=== PATIENT | male | born 1945 | race Caucasian/White ===

== ENCOUNTER 2024-10-02 15:20 | Outpatient (AMB) | payer MEDICARE, MEDICAID, SELFPAY ==
[2024-10-02 15:41] VITALS: BP 112/75; PULSE 105; RESP 16; TEMP 36.4; O2SAT 97; BMI 23.7
--- NOTE | 2024-10-02 15:41 | ACNOTE_ITS ---
Vital Signs 10/02/24 15:41 Height 1.7 m Height Method Stated Weight 68.549 kg Weight Measurement Method Standing Scale BMI 23.7 BP 112/75 Blood Pressure Source Automatic Cuff Blood Pressure Location Left Upper Arm Position Sitting Respiration 16 Pulse 105 H Pulse Source Monitor Temp 97.6 F Temp Source Oral Pulse Oximetry (%) 97 Oxygen Delivery Method Room Air Allergies/Meds Allergies & Medications Allergies No Known Allergies Allergy (Verified 10/02/24 15:42) Medication Reconciliation lancets 28 gauge (Acti-Homar Lancets) #100 ea 06/08/24 [Rx Confirmed 10/02/24] blood sugar diagnostic (Accu-Chek Siria Plus test strips) #100 ea 07/03/24 [Rx Confirmed 10/02/24] atorvastatin 40 mg tablet 40 mg PO QDAY 1 month #30 tabs 08/09/24 [Rx Confirmed 10/02/24] blood-glucose sensor (FreeStyle Renetta 3 Plus Sensor device) #1 ea 08/09/24 [Rx Confirmed 10/02/24] gabapentin 300 mg capsule 300 mg PO QDAY 30 days #30 caps 08/09/24 [Rx Confirmed 10/02/24] insulin glargine 100 unit/mL (3 mL) subcutaneous pen 24 unit (0.24 mL) subcut QPM #15 mL 09/04/24 [Rx Confirmed 10/02/24] levothyroxine 125 mcg tablet 125 mcg PO QDAY #30 tabs 09/04/24 [Rx Confirmed 10/02/24] lisinopril 10 mg tablet 10 mg PO QDAY #30 tabs 09/04/24 [Rx Confirmed 10/02/24] semaglutide 7 mg tablet (Rybelsus) 7 mg PO QDAY #30 tabs 09/04/24 [Rx Confirmed 10/02/24] trazodone 50 mg tablet 50 mg PO QHS PRN insomnia #30 tabs 09/04/24 [Rx Confirmed 10/02/24] MA Intake Visit Data Collection New Patient or Established: Established Patient (seen at [facility] within 3 years) Seen by Clinical Staff ONLY (RN/MA): No Pain Present Currently: No Pain scale:: 0 Pain Scale Used: Rodriguez-Dos Santos/Numerical PCP or OBGYN visit in last 3 months: Yes Do You Feel Safe at Home: Yes Authorities Contacted: N/A Smoking Status Smoking Status: Never smoker Immunization / Flu Flu Vaccine in the Last 12 Months: No Flu Vaccine Exclusion Criteria: No Exclusion Criteria Past Medical History Past Medical History NEUROLOGIC: Positive Neurological Disorders (spinal stenosis) CARDIAC: Positive Cardiac Disorders, Coronary Artery Disease, Hypercholesterolemia and Hypertension; Negative Congestive Heart Failure RESPIRATORY: Negative Chronic Obstructive Pulmonary Disease (COPD) or Asthma GENITOURINARY: Negative Renal Disease ENDOCRINE: Positive Diabetes Mellitus Type 2; Negative Diabetes Mellitus Type 1 HEMATOLOGIC: Negative Sickle Cell Disease OTHER HISTORY: Positive Hospitalization and Falls; Negative Blood Transfusions or Anesthesia Reactions Surgical History SURGICAL: Positive Cardiac Surgery, Coronary Stent (x3), Cardiac Catheterization and Angiogram Social History SMOKING STATUS: Smoking status: Never smoker ALCOHOL: Alcohol Intake: Current ALCOHOL FREQUENCY: Alcohol Intake Frequency: holidays/special occasions only HOUSING: Housing: Homeless LIVES WITH: Lives With: Significant Other Patient Portal Mark Social History Living Situation History Housing: Homeless Tobacco History Smoking Status: Never smoker Alcohol History Alcohol Intake: Current Alcohol Intake Frequency: holidays/special occasions only Substance Use History Substance Use: meth Domestic Abuse History Do You Feel Safe at Home: Yes Review of Systems Report any current symptoms Only answer those that you have currently: Past Medical History Past Medical History Have you ever been diagnosed with any of the following: Cardiology Problems Coronary Artery Disease: Yes Hypercholesterolemia: Yes Congestive Heart Failure: No Hypertension: Yes Respiratory Problems Chronic Obstructive Pulmonary Disease (COPD): No Asthma: No Genital/Urinary Problems Renal Disease: No Endocrine Problems Diabetes Mellitus Type 1: No Diabetes Mellitus Type 2: Yes Blood Problems Sickle Cell Disease: No Other Problems Hospitalization: Yes Falls: Yes Blood Transfusions: No Anesthesia Reactions: No History of Present Illness HPI Narrative 78-year-old male with past medical history of hypertension, hyperlipidemia, CAD s/p stent, prior meth use and fentanyl use, hypothyroidism, DM2, and dementia came into the [facility] for follow-up visit of DM2. Patient has been feeling a lot better and has been a lot more active as well as using a cane now for walking instead of walker. Patient's living condition has changed since last visit and is in much better spirits. Patient states his free style renetta fell off and that he was not able to measure his BG as he did not understand well how to use it even after I explained to him how to use it on previous visit. Patient was asked to come in again with caregiver to explain proper use and free style renetta. No other complaints at this time. Review of Systems Review of Systems Narrative Review of Systems: Constitutional: Denies sweats, Denies weight loss/gain, Denies fever, Denies chills, Denies insomnia, Denies weakness. HEENT: Denies hearing loss, Denies ear pain, Denies postnasal drip, Denies double vision, Denies blurry vision. Respiratory: Denies shortness of breath, Denies cough, Denies wheezing. Cardiovascular: Denies chest pain, Denies palpitations, Denies sudden loss of consciousness. GI: Denies blood in stool, Denies constipation, Denies abdominal pain, Denies difficulty swallowing, Denies nausea or vomit. : Denies urinary incontinence, Denies pain while urinating, Denies increased urinary frequency. MSK: Denies joint pain, Denies joint swelling, Denies numbness. Skin: Denies rash, Denies itching, Denies easy bruising. Neuro: Denies headaches, Denies dizziness, Denies seizures. Objective/Exam General General Appearance: alert, in no apparent distress and cooperative Head Head exam: atraumatic and normocephalic Eye Eye exam: Present normal appearance, PERRL and EOMI ENT ENT exam: Present normal oropharynx, mucous membranes moist and normal external ear exam Neck Neck exam: Present normal inspection, full ROM and trachea midline Resp Respiratory exam: Present normal lung sounds bilaterally Card Cardiovascular exam: Present regular rate, normal rhythm and normal heart sounds Abdominal Abdominal exam: Present soft and normal bowel sounds Extremities Extremities exam: Present normal inspection and full ROM Neuro Neurological exam: Present alert and oriented X3 Psych Psychiatric exam: Present normal affect and normal mood Assessment & Plan Diagnosis / Problem List (1) Diabetes mellitus: Status: Acute Qualifiers: Diabetes mellitus complication status: without complication Diabetes mellitus mcfp insulin use: unspecified mcfp insulin use status Diabetes mellitus type: type 2 Qualified Code(s): E11.9 - Type 2 diabetes mellitus without complications Assessment & Plan: ?Hemoglobin A1c was 12.5% on 08/23/2024 Plan: ?Continue glargine 24 units at at bedtime ?Continue Rybelsus to 7 mg daily -Continue lisinopril 10 mg -Labs in 2 months (2) Hypothyroidism: Status: Acute Qualifiers: Hypothyroidism type: unspecified Qualified Code(s): E03.9 - Hypothyroidism, unspecified Assessment & Plan: TSH on 08/23/2024 was 32.81 Free T4 was 0.98 on 08/23/2024 Plan: ?Continue levothyroxine to 125 mcg daily -Will reasses in 2 months (3) Hyperlipidemia: Status: Acute Qualifiers: Hyperlipidemia type: unspecified Qualified Code(s): E78.5 - Hyperlipidemia, unspecified Assessment & Plan: ?Triglycerides 337, cholesterol 167, LDL 58 on 08/23/2024 Plan: ?Continue atorvastatin 40 mg at bedtime (4) Insomnia: Status: Acute Qualifiers: Insomnia type: unspecified Qualified Code(s): G47.00 - Insomnia, unspecified Assessment & Plan: ?Patient still not sleeping well. Plan: ?Continue trazadone 50 mg (5) Chronic back pain: Status: Acute Qualifiers: Back pain laterality: unspecified Back pain location: back pain in unspecified location Qualified Code(s): M54.9 - Dorsalgia, unspecified; G89.29 - Other chronic pain Assessment & Plan: ?Patient stated that he has chronic back pain which impairs his daily activities and can be attributed to his weakness as well. -Still present, not interested in physical therapy Plan: ?Continue gabapentin 300 mg 3 times daily ?Continue Cyclobenzaprine 5 mg 3 times daily as needed (6) Weakness: Status: Acute Assessment & Plan: Patient still feels weak could be due to poor sleep vs deconditioning Plan: -Improving (7) Carbuncle: Status: Acute Assessment & Plan: -finished course of doxycycline Plan: -resolved Additional Assessment Attending note: I, Waldemar Kruger MD, attest that I was physically present for the chung portions of the service and evaluated the patient with the resident and I reviewed and discussed the case with the resident and agree with the resident's findings and plans of care as documented above. Follow-up visit. Chronic conditions reviewed. Use of CGM reviewed with patient. Tolerating medications. Patient feeling improved. Living condition has changed. Inflamed carbuncle resolved with doxycycline. Continue present medication regimen for now. Labs at 3-month point. Waldemar Kruger MD Advanced Care Planning Advance care planning discussed with:: patient and spouse Physician Billing Established Patient Established Patient: E/M Level 3-CPT 49689 Office Procedures [facility] Level of Care Nursing/Assessment Patient Status: Established Patient Nursing Assessment/Reassessment: Medication Reconciliation, Update PMH in EMR and Vital Signs Coordination of Care: Complex Care and Chronic Disease 1-5, Education Complex Pt/Fam and Staff clarify orders Established Patient Charge Established Patient Point Assignment: 85 Established Patient Point Charge: EP Level 3 (80-115)
== END 2024-10-02 16:04 | disposition home or self-care (01) ==
LOC: HODAHC 15:20
PROVIDERS: Supervising Provider Internal Medicine
DX: E11.9 Type 2 diabetes mellitus without complications (principal); E78.5 Hyperlipidemia, unspecified; G47.00 Insomnia, unspecified; E03.9 Hypothyroidism, unspecified; Z79.4 Long term (current) use of insulin; Z79.84 Long term (current) use of oral hypoglycemic drugs; M54.9 Dorsalgia, unspecified; G89.29 Other chronic pain; R53.1 Weakness; L02.93 Carbuncle, unspecified
CPT/HCPCS: 99213; G0463

== ENCOUNTER 2024-11-12 14:06 | Inpatient (IN) | payer MEDICARE, MEDICAID, SELFPAY ==
[2024-11-12] VITALS (23 sets, daily range): BP systolic 71–159; BP diastolic 36–105; PULSE 51–80; RESP 14–25; TEMP 33.8–37.2; O2SAT 89–100; BMI 22.9
--- NOTE | 2024-11-12 14:23 | XR_ITS ---
Examination: AP chest single view TECHNIQUE: AP portable semiupright chest single view Exam date 9: November 12, 2024 1351 hours INDICATIONS: Sepsis protocol FINDINGS: Early bibasilar pneumonia Normal heart size Median sternotomy wires IMPRESSION: Early bibasilar pneumonia
--- NOTE | 2024-11-12 14:23 | EKG_ITS ---
[facility] Test Date: 2024-11-12 Pat Name: JUAN CARLOS JOEL Department: Room: - Gender: Male [employer]: : 1945 Requested By: Koko Salazar Order Number: [id number] Reading MD: Koko Salazar Measurements Intervals [place] Rate: 47 P: 101 CA: 140 QRS: 11 QRSD: 123 T: 73 QT: 511 QTc: 454 Interpretive Statements SINUS BRADYCARDIA SEPTAL MYOCARDIAL INFARCTION , OF INDETERMINATE AGE [40+ ms Q WAVE IN V1/V2] No previous ECG available for comparison /[id number]/[email or web address]/[id number]
[2024-11-12] MEDS: SODIUM CHLORIDE 0.9% 1000 ML 1,000 ML 999 ML IV ×3 (14:24→15:35)
--- NOTE | 2024-11-12 14:26 | PD.EDADULT ---
ED General RME/HPI General Chief complaint: Altered Mental Status Stated complaint: AMS Time Seen by Provider: 11/12/24 14:22 Arrival date/time: 11/12/24 14:06 CC: Altered mental status HPI patient presents to the ER via EMS tachycardic hypertensive and cool to touch. Related Data Previous Rx's ?Medication ?Instructions ?Recorded lancets 28 gauge (Acti-Homar #100 ea 06/08/24 Lancets) blood sugar diagnostic (Accu-Chek #100 ea 07/03/24 Siria Plus test strips) atorvastatin 40 mg tablet 40 mg PO QDAY 1 month #30 tabs 08/09/24 blood-glucose sensor (FreeStyle #1 ea 08/09/24 Renetta 3 Plus Sensor device) gabapentin 300 mg capsule 300 mg PO QDAY 30 days #30 caps 08/09/24 insulin glargine 100 unit/mL (3 24 unit (0.24 mL) subcut QPM #15 mL 09/04/24 mL) subcutaneous pen levothyroxine 125 mcg tablet 125 mcg PO QDAY #30 tabs 09/04/24 lisinopril 10 mg tablet 10 mg PO QDAY #30 tabs 09/04/24 semaglutide 7 mg tablet (Rybelsus) 7 mg PO QDAY #30 tabs 09/04/24 trazodone 50 mg tablet 50 mg PO QHS PRN insomnia #30 tabs 09/04/24 Allergies Allergy/AdvReac Type Severity Reaction Status Date / Time No Known Allergies Allergy Verified 10/02/24 15:42 Review of Systems Review of Systems ROS Unobtainable: unobtainable due to mental status Past Medical History Past Medical History NEUROLOGIC: Positive Neurological Disorders (spinal stenosis) CARDIAC: Positive Cardiac Disorders, Coronary Artery Disease, Hypercholesterolemia and Hypertension; Negative Congestive Heart Failure RESPIRATORY: Negative Chronic Obstructive Pulmonary Disease (COPD) or Asthma GENITOURINARY: Negative Renal Disease ENDOCRINE: Positive Diabetes Mellitus Type 2; Negative Diabetes Mellitus Type 1 HEMATOLOGIC: Negative Sickle Cell Disease OTHER HISTORY: Positive Hospitalization and Falls; Negative Blood Transfusions or Anesthesia Reactions Surgical History SURGICAL: Positive Cardiac Surgery, Coronary Stent (x3), Cardiac Catheterization and Angiogram Social History SMOKING STATUS: Smoker, status unknown ED Exam Narrative Physical exam: [General: Altered not responding to questions Head normocephalic HEENT: Eyes pupils are PERRLA EOMs intact. Mouth dry. All other subsystems of HEENT are within acceptable limits Neck is supple nontender Chest equal chest rise nontender to palpation Respiratory: Clear to auscultation no wheezes crackles or rubs CV: Rate rhythm is regular, tachycardic, no murmurs rubs or clicks Abdomen is soft nontender no masses positive bowel sounds all 4 quadrants : Ferraro catheter admitting from the penis, thick yellow exudative urine draining into the catheter bag. Back: No CVA tenderness no spinous process tenderness from cervical spine thoracic and lumbar spine Skin: Intact no petechiae rash induration ulceration or crepitus Extremities: Moving all extremity against resistance cap refill less than 2 seconds neurosensory intact Neuro: Awake alert nonverbal at this time. Course Course Course Narrative: Patient case discussed with Dr. Salgado prior to interventions. Quality Measures none Orders Category Date Time Status 24 HR Medical Restraints Q2HR Care 11/12/24 15:58 Active Bedside Blood Glucose Q1H Care 11/12/24 17:17 Active COVID-19 Screening Questionnaire NOW Care 11/12/24 16:02 Active Cryptological Technician STAT Care 11/12/24 14:23 Active Continuous Pulse Oximetry STAT Care 11/12/24 14:23 Completed DKA Protocol QSHIFT Care 11/12/24 17:17 Active Decision to Admit X1 Care 11/12/24 16:02 Completed EKG (ED ONLY) *Do not use* NOW Care 11/12/24 14:23 Completed Emergency Titration Protocol Stat Care 11/12/24 16:34 Ordered In and Out Catheter X1PRN Care 11/12/24 14:23 Completed Insert IV NOW Care 11/12/24 14:23 Active Intake and Output Q1H Care 11/12/24 17:30 Ordered Intake and Output Q1H Care 11/12/24 18:30 Ordered Intake and Output Q1H Care 11/12/24 19:30 Ordered Intake and Output Q1H Care 11/12/24 20:30 Ordered Intake and Output Q1H Care 11/12/24 21:30 Ordered Intake and Output Q1H Care 11/12/24 22:30 Ordered Intake and Output Q1H Care 11/12/24 23:30 Ordered Intubation NOW Care 11/12/24 17:18 Completed NG / OG Tube to LIS NOW Care 11/12/24 17:20 Active NPO STAT Care 11/12/24 14:23 Active Notify provider NEEDED Care 11/12/24 17:17 Active Strict Intake and Output Routine Care 11/12/24 14:23 Ordered Consult to Nephrology Stat Cons 11/12/24 15:56 Ordered Referral Registered Dietitian Routine Cons 11/12/24 17:[address] chest abdomen pelvis wo Stat Exams 11/12/24 17:[address] head/brain wo con Stat Exams 11/12/24 17:06 Completed CXR [XR chest 1V post procedure] Stat Exams 11/12/24 17:43 Completed EKG (ED Only) Stat Exams 11/12/24 14:23 Draft XR chest 1V SEPSIS PROTOCOL Stat Exams 11/12/24 14:23 Completed Arterial Blood Gas Stat Lab 11/12/24 17:27 Ordered B-Type Natriuretic Peptide Stat Lab 11/12/24 15:00 Completed Beta Hydroxybutyrate Stat Lab 11/12/24 15:00 Completed Blood Culture (Lab) Stat Lab 11/12/24 14:38 Received CBC Stat Lab 11/12/24 15:00 Completed Comprehensive Metabolic Panel Stat Lab 11/12/24 15:00 Completed Creatine Kinase Stat Lab 11/12/24 17:48 Completed Drug Screen,Urine Stat Lab 11/12/24 20:28 Completed FLU A&B [Influenza A & B Rapid Panel] Stat Lab 11/12/24 04:30 Received Hemoglobin and Hematocrit Stat Lab 11/12/24 17:48 Completed LDH (Lactate Dehydrogenase) Stat Lab 11/12/24 15:00 Completed Lactate (Lactic Acid) Stat Lab 11/12/24 15:00 Completed Lactic Acid, 3 HR Stat Lab 11/12/24 17:48 Completed Lipase Stat Lab 11/12/24 15:00 Completed MRSA Nasal Screen Stat Lab 11/12/24 20:50 Received Magnesium Q4H Lab 11/14/24 01:30 Ordered Magnesium Q4H Lab 11/14/24 05:30 Ordered Magnesium Q4H Lab 11/14/24 09:30 Ordered Magnesium Q4H Lab 11/14/24 13:30 Ordered Magnesium Q4H Lab 11/14/24 17:30 Ordered Magnesium Q4H Lab 11/12/24 22:58 Completed Magnesium Q4H Lab 11/13/24 01:43 Completed Magnesium Q4H Lab 11/13/24 05:20 Received Magnesium Q4H Lab 11/13/24 09:30 Ordered Magnesium Q4H Lab 11/13/24 13:30 Ordered Magnesium Q4H Lab 11/13/24 17:30 Ordered Magnesium Q4H Lab 11/13/24 21:30 Ordered Magnesium Stat Lab 11/12/24 15:00 Completed Partial Thromboplastin Time Stat Lab 11/12/24 15:00 Completed Phosphorous Q4H Lab 11/14/24 01:30 Ordered Phosphorous Q4H Lab 11/14/24 05:30 Ordered Phosphorous Q4H Lab 11/14/24 09:30 Ordered Phosphorous Q4H Lab 11/14/24 13:30 Ordered Phosphorous Q4H Lab 11/14/24 17:30 Ordered Phosphorous Stat Lab 11/12/24 15:00 Completed Procalcitonin Stat Lab 11/12/24 15:00 Completed Prothrombin Time with INR Stat Lab 11/12/24 15:00 Completed Renal Function Panel Q4 Lab 11/14/24 01:30 Ordered Renal Function Panel Q4 Lab 11/14/24 05:30 Ordered Renal Function Panel Q4 Lab 11/14/24 09:30 Ordered Renal Function Panel Q4 Lab 11/14/24 13:30 Ordered Renal Function Panel Q4 Lab 11/14/24 17:30 Ordered Renal Function Panel Q4 Lab 11/12/24 22:58 Completed Renal Function Panel Q4 Lab 11/13/24 01:43 Completed Renal Function Panel Q4 Lab 11/13/24 05:20 Received Renal Function Panel Q4 Lab 11/13/24 09:30 Ordered Renal Function Panel Q4 Lab 11/13/24 13:30 Ordered Renal Function Panel Q4 Lab 11/13/24 17:30 Ordered Renal Function Panel Q4 Lab 11/13/24 21:30 Ordered Renal Function Panel Stat Lab 11/12/24 17:48 Completed Sputum Culture and Gram Stain Routine Lab 11/12/24 17:27 Results Troponin I Stat Lab 11/12/24 15:00 Completed Urinalysis Stat Lab 11/12/24 14:38 Completed Urine Culture Stat Lab 11/12/24 14:38 Received VBG [Venous Blood Gas] Stat Lab 11/12/24 15:00 Completed Calcium Gluconate 10% Inj Med 11/12/24 15:43 Discontinued 1 gm IV X1 ONE Calcium Gluconate 10% Inj Med 11/12/24 15:56 Discontinued 1 gm IV X1 ONE Dextrose 5%-Lactated Ringers [D5-Lr] 1,000 ml Med 11/12/24 17:17 Active Pot Chl Additive [KCl Additive] 40 meq IV 250 mls/hr Dextrose 5%-Lactated Ringers [D5-Lr] 1,000 ml Med 11/12/24 17:17 Active IV 250 mls/hr Dextrose 50% Syr [D50w Syringe Abboject] Med 11/12/24 17:17 Active 25 ml IV PRNMRX1 PRN Etomidate Inj [Amidate Inj] Med 11/12/24 16:42 Discontinued 20 mg IVP X1 ONE Insulin Reg 100 Units/100 ml [Myxredlin] Med 11/12/24 15:57 Hold 100 unit in 100 ml IV 0.1 unit/kg/hr Insulin Reg 100 Units/100 ml [Myxredlin] Med 11/12/24 19:36 Active 100 unit in 100 ml IV 0.1 unit/kg/hr Insulin Regular Med 11/12/24 15:57 Discontinued 10 unit IV X1 ONE KCL 20 mEq/L in D5-LR Med 11/12/24 17:17 Active 20 meq in 1,000 ml IV 250 mls/hr Ketamine Inj Med 11/12/24 16:43 Discontinued 200 mg IVP X1 ONE Magnesium Sulfate 2 GM Ivpb [Magnesium Sulfate Ivpb] Med 11/12/24 17:17 Active 2 gm in 50 ml IV 25 mls/hr Norepinephrine/D5W 8mg/250ml [Levophed in D5W 8mg/250ml Med 11/12/24 16:05 Discontinued ] 8 mg in 250 ml IV 0.05 mcg/kg/min POT PHOS 15 mMol in NS 250 ML [Pot Phos 15 mMol in NS Med 11/12/24 17:17 Active 250 ml] 15 mmol in 250 ml IV PRN POTASSIUM CHL 10 mEq IVPB [Kcl Ivpb] Med 11/12/24 17:17 Active 10 meq in 100 ml IV 100 mls/hr POTASSIUM CHL 10 mEq IVPB [Kcl Ivpb] Med 11/12/24 17:17 Active 10 meq in 100 ml IV PRN POTASSIUM CHL 20 mEq IVPB [Kcl Ivpb] 100 ml Med 11/12/24 17:17 Active IV 100 mls/hr Piper/Tazo Inj [Zosyn Inj] 3.375 gm Med 11/12/24 22:30 Active Sodium Chloride 0.9% (P) [Ns 0.9% (P)] 50 ml IV Q8HR Piper/Tazo Inj [Zosyn Inj] 3.375 gm Med 11/12/24 17:45 Discontinued Sodium Chloride 0.9% (P) [Ns 0.9% (P)] 50 ml IV X1 Propofol 1,000 mg Ivpb [Diprivan Ivpb] Med 11/12/24 16:59 Discontinued 1,000 mg in 100 ml IV 5 mcg/kg/min Propofol 1,000 mg Ivpb [Diprivan Ivpb] Med 11/12/24 18:01 Active 1,000 mg in 100 ml IV 5 mcg/kg/min Ringers Lactated 1000 ml [Lactated Ringers] 1,000 ml Med 11/12/24 17:17 Active Pot Chl Additive [KCl Additive] 20 meq IV 250 mls/hr Ringers Lactated 1000 ml [Lactated Ringers] 1,000 ml [facility] 11/12/24 17:17 Active Pot Chl Additive [KCl Additive] 40 meq IV 250 mls/hr Ringers Lactated 1000 ml [Lactated Ringers] 1,000 ml Med 11/12/24 17:17 Discontinued IV 250 mls/hr Rocuronium Inj [Zemuron Inj] Med 11/12/24 16:42 Discontinued 70 mg IVP X1 ONE Sodium Bicarb 8.4% SYR Med 11/12/24 17:17 Active 50 ml IV PRN PRN Sodium Chloride 0.9% 1000 ml [Ns] 1,000 ml Med 11/12/24 15:21 Discontinued IV 150 mls/hr Sodium Chloride 0.9% 1000 ml [Ns] 1,000 ml Med 11/12/24 14:24 Discontinued IV 999 mls/hr Sodium Chloride 0.9% 1000 ml [Ns] 1,000 ml Med 11/12/24 14:24 Discontinued IV 999 mls/hr Sodium Chloride 0.9% 1000 ml [Ns] 1,000 ml Med 11/12/24 15:21 Discontinued IV 999 mls/hr Sodium Chloride 0.9% 250 ml [Ns] 250 ml Med 11/12/24 17:17 Active Sod Phos Additive [NaPhos Additive] 15 mmol IV 62.5 mls/hr Sodium Chloride Rt Hayde 10% [NS Rt Hayde 10%] Med 11/12/24 17:18 Discontinued 5 ml INH X1 ONE Sodium Chloride Rt Hayde 10% [NS Rt Hayde 10%] Med 11/12/24 17:20 Discontinued 5 ml INH X1 ONE cefTRIAXone/D5w 1gm IV premix [Rocephin/D5w 1gm IV Med 11/12/24 14:24 Discontinued premix] 50 ml IV X1 fentaNYL 2,500 MCG/250 ML BAG [Sublimaze Inj 2,500 MCG/ Med 11/12/24 16:58 Discontinued 250 ML BAG] 2,500 mcg in 250 ml IV 25 mcg/hr fentaNYL 2,500 MCG/250 ML BAG [Sublimaze Inj 2,500 MCG/ Med 11/12/24 18:13 Active 250 ML BAG] 2,500 mcg in 250 ml IV 25 mcg/hr Oxygen Delivery NOW RT 11/12/24 14:23 Active Sputum Induction PRN RT 11/12/24 17:30 Ordered Volume Ventilator Stat RT 11/12/24 17:18 Active Vital Signs Vital signs: Vital Signs Temperature 93.9 F L 11/12/24 14:08 Respiratory Rate 14 11/12/24 14:08 Blood Pressure 159/105 H 11/12/24 14:08 [facility] Patient data External records reviewed:: [facility] previous records and EMS form Clinical information provided by:: patient and EMS Social determinants that could affect healthcare access:: none Patient has the following chronic illnesses:: Diabetes hypothyroidism hypertension Review the medical record show the patient was recently admitted in May 2024 for altered mental status patient has a history of CAD with stents meth and fentanyl abuse hyperlipidemia hypertension dementia. How is presenting disease/condition affected by chronic disease/condition?: uneffected by Evaluation data The following diagnostics were reviewed and interpreted by me:: lab results, radiology exam(s) and EKG tracing(s) Lab and/or radiology exams considered but not ordered:: EKG performed at 1440 shows a ventricular to 4 7 NJ interval 140 QRS 123 QTc of 474 sinus rhythm with baseline artifact no old EKG for comparison. This CMP shows a sodium 141 potassium of 6.1 chloride of 110 bicarb of less than 10 BUN of 117 creatinine of 5.6 glucose of 1213. CBC shows a leukocytosis of 16.0 and H&H of 12.7 and 40.9 respectively with platelets of 209. Coags show an INR 1.3 VBG shows a pH of 7.17 pCO2 of 22 pO2 of 92 base deficit of 19. Lactic acid of 4.8 Calcium was 7.1 corrected calcium of 8.0 Phos of 11.5 mag of 3.5 T. bili 0.2 AST 46 ALT 27 8 alk phos 144 LDH of 305 Lipase of 292 Beta hydroxy at 3.3 Pro-Camilo at 49.39. Interpretation Summary: Patient's case discussed with Dr. Jean bundle tier and labeler as well as Dr. Murillo sawdust drier who agrees to consult with this patient at this time Dr. Jean with a team of come down to will intubate and place a central line on the patient. Discussion involving correction of the hyperkalemia was resolved with the normal saline boluses, as well as necessary albuterol treatment once the patient is intubated we elected not to give a insulin bolus initially before insulin drip was initiated. Medications Medications considered but not ordered:: None Medication administrations:: Medication Administration History Dextrose (Dextrose 50%-Water Inj 50 Ml Syringe) 25 ml IV PRNMRX1 PRN PRN Reason: Blood Sugar - Low Heparin Sodium (Porcine) (Heparin Sod Inj 1000 Unit/Ml Vial 10 Ml) 2,500 unit INDWELLCAT PRN PRN PRN Reason: DIALYSIS Stop: 11/27/24 04:55 Insulin Human Regular (Myxredlin) 100 unit in 100 mls @ 7.258 mls/hr IV .[id number] PRN; Protocol PRN Reason: PER PROTOCOL Stop: 12/12/24 15:56 Last Titration: 11/12/24 18:27 Dose: 0.1 unit/kg/hr, 7.258 mls/hr Documented By: TRACY Co-signed By: SARI Titration: 11/12/24 17:21 Dose: 0.1 unit/kg/hr, 7.258 mls/hr Documented By: RONEL Co-signed By: EASTON Admin: 11/12/24 16:21 Dose: 0.1 unit/kg/hr, 7.258 mls/hr Documented By: RONEL Co-signed By: EASTON Potassium Chloride (Kcl Ivpb) 10 meq in 100 mls @ 100 mls/hr IV .Q1H PRN PRN Reason: IF POTASSIUM LESS THAN 3.3 Stop: 12/12/24 17:16 Magnesium Sulfate (Magnesium Sulfate Ivpb) 2 gm in 50 mls @ 25 mls/hr IV .Q2H PRN PRN Reason: PER DKA PROTOCOL Stop: 12/12/24 17:16 Dextrose/Lactated Ringer's (D5-Lr) 1,000 mls @ 250 mls/hr IV .Q4H PRN PRN Reason: PER PROTOCOL Stop: 12/12/24 17:16 Potassium Chloride 20 meq/ (Lactated Ringer's) 1,010 mls @ 250 mls/hr IV .Q4H3M PRN PRN Reason: K LEVEL 3.3 TO 5.3mM/L Stop: 12/12/24 17:16 Potassium Chloride 40 meq/ (Lactated Ringer's) 1,020 mls @ 250 mls/hr IV .Q4H5M PRN PRN Reason: K LEVEL < 3.3 mM/L Stop: 12/12/24 17:16 Potassium Chloride 40 meq/ (Dextrose/Lactated Ringer's) 1,020 mls @ 250 mls/hr IV .Q4H5M PRN PRN Reason: K LEVEL < 3.3mM/L Stop: 12/12/24 17:16 Potassium Cl/Dextrose/Lact Ringer's (Kcl 20 Meq/L In D5-Lr) 20 meq in 1,000 mls @ 250 mls/hr IV .Q4H PRN PRN Reason: K LEVEL 3.3 TO 5.3 mM/L Stop: 12/12/24 17:16 Potassium Chloride (Kcl Ivpb) 10 meq in 100 mls @ 50 mls/hr IV PRN PRN PRN Reason: K LEVEL 3.3 to 5.3 & BG > 200 Stop: 12/12/24 17:16 Potassium Phosphate (Pot Phos 15 Mmol In Ns 250 Ml) 15 mmol in 250 mls @ 62.5 mls/hr IV PRN PRN PRN Reason: Phosphate <= 1mg/dL Stop: 12/12/24 17:16 Sodium Phosphate 15 mmol/ (Sodium Chloride) 255 mls @ 62.5 mls/hr IV .Q4H5M PRN PRN Reason: Phosphate <= 1mg/dL and K> than 5.3 Stop: 12/12/24 17:16 Potassium Chloride (Kcl Ivpb) 100 mls @ 100 mls/hr IV .Q1H PRN PRN Reason: IF POTASSIUM LESS THAN 3.3 Stop: 12/12/24 17:16 Piperacillin Sod/Tazobactam (Sod 3.375 gm/ Sodium Chloride) 50 mls @ 12.5 mls/hr IV Q8HR [facility] Stop: 11/19/24 22:29 Last Admin: 11/12/24 22:56 Dose: 12.5 mls/hr Documented By: RH Propofol (Diprivan Ivpb) 1,000 mg in 100 mls @ 2.177 mls/hr IV .Q24H PRN; Protocol PRN Reason: PER PROTOCOL Stop: 12/12/24 18:00 Last Titration: 11/13/24 03:00 Dose: 35 mcg/kg/min, 15.241 mls/hr Documented By: Titration: 11/13/24 02:00 Dose: 35 mcg/kg/min, 15.241 mls/hr Documented By: Titration: 11/13/24 01:00 Dose: 35 mcg/kg/min, 15.241 mls/hr Documented By: Titration: 11/13/24 00:00 Dose: 35 mcg/kg/min, 15.241 mls/hr Documented By: Titration: 11/12/24 23:31 Dose: 35 mcg/kg/min, 15.241 mls/hr Documented By: Titration: 11/12/24 23:16 Dose: 30 mcg/kg/min, 13.064 mls/hr Documented By: Titration: 11/12/24 23:00 Dose: 25 mcg/kg/min, 10.886 mls/hr Documented By: Titration: 11/12/24 22:55 Dose: 25 mcg/kg/min, 10.886 mls/hr Documented By: Titration: 11/12/24 22:45 Dose: 20 mcg/kg/min, 8.709 mls/hr Documented By: Titration: 11/12/24 22:40 Dose: 20 mcg/kg/min, 8.709 mls/hr Documented By: Titration: 11/12/24 22:35 Dose: 15 mcg/kg/min, 6.532 mls/hr Documented By: Titration: 11/12/24 22:30 Dose: 10 mcg/kg/min, 4.355 mls/hr Documented By: Admin: 11/12/24 22:25 Dose: 5 mcg/kg/min, 2.177 mls/hr Documented By: RH Co-signed By: CLT Fentanyl Citrate (Sublimaze Inj 2,500 Mcg/250 Ml Bag) 2,500 mcg in 250 mls @ 2.5 mls/hr IV .Q24H PRN; Protocol PRN Reason: PER PROTOCOL Stop: 11/17/24 18:12 Last Titration: 11/13/24 03:00 Dose: 175 mcg/hr, 17.5 mls/hr Documented By: Titration: 11/13/24 02:00 Dose: 175 mcg/hr, 17.5 mls/hr Documented By: Titration: 11/13/24 01:00 Dose: 175 mcg/hr, 17.5 mls/hr Documented By: Titration: 11/13/24 00:00 Dose: 175 mcg/hr, 17.5 mls/hr Documented By: Titration: 11/12/24 23:55 Dose: 175 mcg/hr, 17.5 mls/hr Documented By: Titration: 11/12/24 23:25 Dose: 125 mcg/hr, 12.5 mls/hr Documented By: Titration: 11/12/24 23:00 Dose: 75 mcg/hr, 7.5 mls/hr Documented By: Titration: 11/12/24 22:55 Dose: 75 mcg/hr, 7.5 mls/hr Documented By: Admin: 11/12/24 22:25 Dose: 25 mcg/hr, 2.5 mls/hr Documented By: RH Co-signed By: CLT Insulin Human Regular (Myxredlin) 100 unit in 100 mls @ 7.258 mls/hr IV .[id number] PRN; Protocol PRN Reason: PER PROTOCOL Stop: 12/12/24 19:35 Last Admin: 11/13/24 03:54 Dose: 0.1 unit/kg/hr, 7.258 mls/hr Documented By: RH Co-signed By: CLT Titration: 11/13/24 03:54 Dose: Infused Documented By: RH Co-signed By: CLT Titration: 11/13/24 03:00 Dose: 0.1 unit/kg/hr, 7.258 mls/hr Documented By: RH Co-signed By: CLT Titration: 11/13/24 02:00 Dose: 0.1 unit/kg/hr, 7.258 mls/hr Documented By: RH Co-signed By: CLT Titration: 11/13/24 01:00 Dose: 0.1 unit/kg/hr, 7.258 mls/hr Documented By: RH Co-signed By: CLT Titration: 11/13/24 00:00 Dose: 0.1 unit/kg/hr, 7.258 mls/hr Documented By: RH Co-signed By: CLT Titration: 11/12/24 23:00 Dose: 0.1 unit/kg/hr, 7.258 mls/hr Documented By: RH Co-signed By: CLT Titration: 11/12/24 22:00 Dose: 0.1 unit/kg/hr, 7.258 mls/hr Documented By: RH Co-signed By: CLT Titration: 11/12/24 21:00 Dose: 0.1 unit/kg/hr, 7.258 mls/hr Documented By: KG Co-signed By: CB Titration: 11/12/24 20:00 Dose: 0.1 unit/kg/hr, 7.258 mls/hr Documented By: KG Co-signed By: EE Admin: 11/12/24 19:00 Dose: 0.1 unit/kg/hr, 7.258 mls/hr Documented By: KG Co-signed By: SF Vasopressin/Sodium Chloride (Vasostrict/Ns Ivpb) 20 unit in 100 mls @ 9 mls/hr IV .Q11H7M PRN; Protocol PRN Reason: PER PROTOCOL Stop: 12/12/24 22:29 Last Admin: 11/12/24 22:55 Dose: 0.03 unit/min, 9 mls/hr Documented By: RH Norepinephrine Bitartrate (Levophed In Ns 16mg/250ml) 16 mg in 250 mls @ 3.402 mls/hr IV .Q24H PRN; Protocol PRN Reason: PER PROTOCOL Stop: 12/13/24 01:46 Last Titration: 11/13/24 03:00 Dose: 0.7 mcg/kg/min, 47.627 mls/hr Documented By: Titration: 11/13/24 02:00 Dose: 0.7 mcg/kg/min, 47.627 mls/hr Documented By: Admin: 11/13/24 01:48 Dose: 0.7 mcg/kg/min, 47.627 mls/hr Documented By: CLT Lactated Ringer's (Lactated Ringers) 1,000 mls @ 100 mls/hr IV .Q10H PRN PRN Reason: PER PROTOCOL Stop: 11/13/24 17:16 Last Admin: 11/13/24 04:07 Dose: 100 mls/hr Documented By: RH Sodium Bicarbonate 88.23 meq/ (Dextrose) 588.23 mls @ 150 mls/hr IV .Q3H56M MARIE Stop: 12/13/24 04:03 Last Admin: 11/13/24 04:06 Dose: 150 mls/hr Documented By: RH Albumin Human (Albuminar-25 Ivpb) 25 gm in 100 mls @ 100 mls/min IV PRN PRN PRN Reason: DIALYSIS Sodium Bicarbonate (Sodium Bicarb Inj 8.4% Syr 50 Ml Syringe) 50 ml IV PRN PRN PRN Reason: For ph <= to 7.0 Stop: 12/12/24 17:16 Last Admin: 11/12/24 23:26 Dose: 50 ml Documented By: RH Discontinued Medications Calcium Gluconate (Calcium Gluconate 10% Inj 1 Gm/10 Ml Vial) 1 gm IV X1 ONE Stop: 11/12/24 15:44 Last Admin: 11/12/24 15:53 Dose: 1 gm Documented By: RONEL Calcium Gluconate (Calcium Gluconate 10% Inj 1 Gm/10 Ml Vial) 1 gm IV X1 ONE Stop: 11/12/24 15:57 Last Admin: 11/12/24 17:57 Dose: Not Given Documented By: EASTON Non-Admin Reason: Duplicate Medication on eMAR Calcium Gluconate (Calcium Gluconate 10% Inj 1 Gm/10 Ml Vial) 1 gm IV X1 ONE Stop: 11/13/24 00:22 Last Admin: 11/13/24 00:28 Dose: 1 gm Documented By: OUMAR Calcium Gluconate (Calcium Gluconate 10% Inj 1 Gm/10 Ml Vial) Confirm Administered Dose 1 gm .ROUTE .STK-MED ONE Stop: 11/13/24 00:16 Last Admin: 11/13/24 00:28 Dose: Not Given Documented By: RH Non-Admin Reason: Override Medication Etomidate (Etomidate Inj 2 Mg/Ml Vial 10 Ml) 20 mg IVP X1 ONE Stop: 11/12/24 16:43 Last Admin: 11/12/24 16:43 Dose: Not Given Documented By: DB Non-Admin Reason: Cancelled by Provider Ceftriaxone Sodium/Dextrose (Rocephin/D5w 1gm Iv Premix) 50 mls @ 100 mls/hr IV X1 ONE Stop: 11/12/24 14:53 Last Infusion: 11/12/24 15:34 Dose: Infused Documented By: Admin: 11/12/24 14:44 Dose: 100 mls/hr Documented By: TM Sodium Chloride (Ns) 1,000 mls @ 999 mls/hr IV .Q1H1M ONE Stop: 11/12/24 15:24 Last Infusion: 11/12/24 15:35 Dose: Infused Documented By: Admin: 11/12/24 14:24 Dose: 999 mls/hr Documented By: TM Sodium Chloride (Ns) 1,000 mls @ 999 mls/hr IV .Q1H1M ONE Stop: 11/12/24 15:24 Last Infusion: 11/12/24 15:25 Dose: Infused Documented By: Admin: 11/12/24 14:24 Dose: 999 mls/hr Documented By: TM Sodium Chloride (Ns) 1,000 mls @ 999 mls/hr IV .Q1H1M ONE Stop: 11/12/24 16:21 Last Infusion: 11/12/24 18:35 Dose: Infused Documented By: Admin: 11/12/24 15:35 Dose: 999 mls/hr Documented By: TM Sodium Chloride (Ns) 1,000 mls @ 150 mls/hr IV .Q6H40M MARIE Stop: 11/13/24 15:20 Last Admin: 11/12/24 18:05 Dose: 150 mls/hr Documented By: TRACY Norepinephrine/Dextrose (Levophed In D5w 8mg/250ml) 8 mg in 250 mls @ 6.804 mls/hr IV .Q24H PRN; Protocol PRN Reason: PER PROTOCOL Stop: 12/12/24 16:04 Last Titration: 11/13/24 01:48 Dose: Infused Documented By: Titration: 11/13/24 01:21 Dose: 0.7 mcg/kg/min, 95.255 mls/hr Documented By: Titration: 11/13/24 01:16 Dose: 0.64 mcg/kg/min, 87.09 mls/hr Documented By: Titration: 11/13/24 01:10 Dose: 0.6 mcg/kg/min, 81.647 mls/hr Documented By: Titration: 11/13/24 01:00 Dose: 0.56 mcg/kg/min, 76.204 mls/hr Documented By: Titration: 11/13/24 00:47 Dose: 0.56 mcg/kg/min, 76.204 mls/hr Documented By: Titration: 11/13/24 00:15 Dose: 0.54 mcg/kg/min, 73.482 mls/hr Documented By: Titration: 11/13/24 00:00 Dose: 0.5 mcg/kg/min, 68.039 mls/hr Documented By: Titration: 11/12/24 23:00 Dose: 0.5 mcg/kg/min, 68.039 mls/hr Documented By: Titration: 11/12/24 22:45 Dose: 0.5 mcg/kg/min, 68.039 mls/hr Documented By: Admin: 11/12/24 22:20 Dose: 0.48 mcg/kg/min, 65.318 mls/hr Documented By: Titration: 11/12/24 22:20 Dose: Infused Documented By: Titration: 11/12/24 22:00 Dose: 0.46 mcg/kg/min, 62.596 mls/hr Documented By: Titration: 11/12/24 21:38 Dose: 0.46 mcg/kg/min, 62.596 mls/hr Documented By: Titration: 11/12/24 21:33 Dose: 0.46 mcg/kg/min, 62.596 mls/hr Documented By: Titration: 11/12/24 21:28 Dose: 0.46 mcg/kg/min, 62.596 mls/hr Documented By: Titration: 11/12/24 21:23 Dose: 0.44 mcg/kg/min, 59.874 mls/hr Documented By: Titration: 11/12/24 21:18 Dose: 0.42 mcg/kg/min, 57.153 mls/hr Documented By: Titration: 11/12/24 21:13 Dose: 0.42 mcg/kg/min, 57.153 mls/hr Documented By: Titration: 11/12/24 21:08 Dose: 0.42 mcg/kg/min, 57.153 mls/hr Documented By: Titration: 11/12/24 21:03 Dose: 0.4 mcg/kg/min, 54.431 mls/hr Documented By: Titration: 11/12/24 20:58 Dose: 0.38 mcg/kg/min, 51.71 mls/hr Documented By: Titration: 11/12/24 20:53 Dose: 0.36 mcg/kg/min, 48.988 mls/hr Documented By: Titration: 11/12/24 20:48 Dose: 0.34 mcg/kg/min, 46.267 mls/hr Documented By: Titration: 11/12/24 20:20 Dose: 0.32 mcg/kg/min, 43.545 mls/hr Documented By: Titration: 11/12/24 19:56 Dose: 0.32 mcg/kg/min, 43.545 mls/hr Documented By: Titration: 11/12/24 19:51 Dose: 0.32 mcg/kg/min, 43.545 mls/hr Documented By: Titration: 11/12/24 19:46 Dose: 0.32 mcg/kg/min, 43.545 mls/hr Documented By: Titration: 11/12/24 19:41 Dose: 0.32 mcg/kg/min, 43.545 mls/hr Documented By: Titration: 11/12/24 19:36 Dose: 0.32 mcg/kg/min, 43.545 mls/hr Documented By: Titration: 11/12/24 19:31 Dose: 0.32 mcg/kg/min, 43.545 mls/hr Documented By: Titration: 11/12/24 18:54 Dose: 0.3 mcg/kg/min, 40.823 mls/hr Documented By: Titration: 11/12/24 18:36 Dose: 0.3 mcg/kg/min, 40.823 mls/hr Documented By: Titration: 11/12/24 18:06 Dose: 0.3 mcg/kg/min, 40.823 mls/hr Documented By: Titration: 11/12/24 18:01 Dose: 0.28 mcg/kg/min, 38.102 mls/hr Documented By: Titration: 11/12/24 17:48 Dose: 0.26 mcg/kg/min, 35.38 mls/hr Documented By: Titration: 11/12/24 16:32 Dose: 0.1 mcg/kg/min, 13.608 mls/hr Documented By: Admin: 11/12/24 16:16 Dose: 0.05 mcg/kg/min, 6.804 mls/hr Documented By: TM Fentanyl Citrate (Sublimaze Inj 2,500 Mcg/250 Ml Bag) 2,500 mcg in 250 mls @ 2.5 mls/hr IV .Q24H PRN; Protocol PRN Reason: PER PROTOCOL Stop: 11/17/24 16:57 Propofol (Diprivan Ivpb) 1,000 mg in 100 mls @ 2.177 mls/hr IV .Q24H PRN; Protocol PRN Reason: PER PROTOCOL Stop: 12/12/24 16:58 Lactated Ringer's (Lactated Ringers) 1,000 mls @ 250 mls/hr IV .Q4H PRN PRN Reason: PER PROTOCOL Stop: 11/13/24 17:16 Last Infusion: 11/13/24 04:12 Dose: Infused Documented By: Admin: 11/12/24 17:59 Dose: 250 mls/hr Documented By: TRACY Piperacillin Sod/Tazobactam (Sod 3.375 gm/ Sodium Chloride) 50 mls @ 100 mls/hr IV X1 ONE Stop: 11/12/24 18:14 Last Infusion: 11/12/24 18:35 Dose: Infused Documented By: Admin: 11/12/24 17:56 Dose: 100 mls/hr Documented By: TRACY Sodium Bicarbonate 88.23 meq/ (Dextrose) 588.23 mls @ 100 mls/hr IV .Q5H53M MARIE Stop: 12/12/24 23:13 Last Infusion: 11/13/24 04:13 Dose: Infused Documented By: Admin: 11/12/24 23:31 Dose: 100 mls/hr Documented By: OUMAR Calcium Gluconate/Sodium Chloride (Calcium Gluc/Ns 1000mg Ivpb) 1,000 mg in 50 mls @ 200 mls/hr IV X1 ONE Stop: 11/13/24 00:29 Last Admin: 11/13/24 00:33 Dose: Not Given Documented By: OUMAR Non-Admin Reason: Cancelled by Provider Norepinephrine Bitartrate (Levophed In Ns 16mg/250ml) Confirm Administered Dose 16 mg in 250 mls @ ud IV .STK-MED ONE Stop: 11/13/24 01:40 Last Admin: 11/13/24 01:49 Dose: Not Given Documented By: RENAN Non-Admin Reason: Duplicate Medication on eMAR Insulin Human Regular (Insulin Hum Regular 1 Unit/0.01 Ml (Per Unit)) 10 unit IV X1 ONE Stop: 11/12/24 15:58 Last Admin: 11/12/24 18:07 Dose: Not Given Documented By: TRACY Non-Admin Reason: Discontinued Insulin Human Regular (Insulin Hum Regular 1 Unit/0.01 Ml (Per Unit)) 10 unit IV X1 ONE Stop: 11/13/24 00:13 Last Admin: 11/13/24 00:25 Dose: 10 unit Documented By: OUMAR Co-signed By: HAROON Ketamine HCl (Ketamine 50 Mg/Ml Vial 10 Ml) 200 mg IVP X1 ONE Stop: 11/12/24 16:44 Last Admin: 11/12/24 16:54 Dose: 200 mg Documented By: EASTON Rocuronium [place] (Rocuronium Inj 10 Mg/Ml Vial 10 Ml) 70 mg IVP X1 ONE Stop: 11/12/24 16:43 Last Admin: 11/12/24 16:56 Dose: 70 mg Documented By: EASTON Co-signed By: ZORAIDA Sodium Chloride (Sodium Chloride Rt 10% 15 Ml Nebu) 5 ml INH X1 ONE Stop: 11/12/24 17:19 Sodium Chloride (Sodium Chloride Rt 10% 15 Ml Nebu) 5 ml INH X1 ONE Stop: 11/12/24 17:21 Last Admin: 11/12/24 18:35 Dose: Not Given Documented By: TRACY Non-Admin Reason: Discontinued None Consultations Consultation(s) initiated? (list below): Yes Diagnosis Differential Diagnosis ED Complaint MDM: DKA dehydration altered mental status urinary tract infection rhabdo myelos Most likely diagnosis given after review of the tests above:: DKA dehydration altered mental status respiratory failure urinary tract infection rhabdo myelosis Admission Indicated Admission indicated?: indicated Explain why admission is indicated or not indicated:: [facility] critical care Admission Request Was there a request for admission?: No Disposition Plan Disposition Plan: Admit Medical Decision Making Differential Diagnosis Differential Diagnosis: DKA dehydration altered mental status urinary tract infection rhabdo myelos Lab Data 11/12/24 17:48 11/13/24 01:43 Labs: Lab Results 11/12/24 11/12/24 11/12/24 Range/Units 14:38 15:00 17:48 WBC 16.0 H (3.8-10.6) Thou/mm3 RBC 4.23 L (4.50-5.90) Miln/mm3 Hgb 12.7 L 14.5 (13.5-16.0) g/dL Hct 40.9 L 46.2 (41.0-53.0) % MCV 97 (80-100) fL MCH 30.0 (25.0-35.0) pg MCHC 31.1 (31.0-37.0) g/dl RDW Std Deviation 51.7 H (35.1-43.9) fL Plt Count 208 (140-440) Thou/mm3 Neut % (Auto) 92 H (37-80) % Lymph % (Auto) 2 L (10-50) % [place] % (Auto) 3 (0-12) % Eos % (Auto) 0 (0-10) % Baso % (Auto) 0 (0-2.5) % Neut # (Auto) 14.7 H (1.8-7.7) Thou/mm3 Lymph # (Auto) 0.3 L (1.0-4.8) Thou/mm3 [place] # (Auto) 0.5 (0.0-0.8) Thou/mm3 Eos # (Auto) 0.0 (0.0-0.5) Thou/mm3 Baso # (Auto) 0.0 (0.0-0.2) Thou/mm3 Immature Gran # (Auto) 0.45 H (0.00-0.00) Thou/mm3 Absolute Nucleated RBC 0.00 (0.00-0.00) Thou/mm3 Immature Gran % 3 H (0-0) % Nucleated RBC % 0 (0) /100 WBC PT 14.4 H (9.0-12.2) Seconds INR 1.3 (0.9-1.3) APTT 31.3 (22.0-36.0) Seconds VBG pH 7.17 L (7.33-7.66) VBG pCO2 22 L (36-56) mmHg VBG pO2 92 H (15-58) mmHg VBG O2 Sat (Kris) 96 (96-97) % VBG Base Excess -19 L (-3-3) Sodium 141 141 (136-145) mMol/L Potassium 6.1 H* 6.3 H* (3.4-5.1) mMol/L Chloride 110 H 108 H (98-107) mMol/L Carbon Dioxide < 10.0 L* 12.7 L* (20.0-31.0) mMol/L Anion Gap 21 H 20 H (7-16) BUN 117 H* 136 H* (9-23) mg/dL Creatinine 5.6 H* 6.0 H* (0.6-1.3) mg/dL Estim Creat Clear Calc Not Performed. 10.8 L eGFR 10 L* 9 L* (60 - ) See Note BUN/Creatinine Ratio 21 H 23 H (12-20) Ratio Glucose 1213 H* 1121 H* D (74-106) mg/dL Calculated Osmolality 380 H 382 H (275-295) Lactic Acid 4.8 H* 4.2 H* (0.4-2.0) mMol/L Calcium 7.1 L 8.3 (8.3-10.6) mg/dL Corrected Calcium 8.0 L 8.7 (8.5-10.1) mg/dL Phosphorus 11.5 H 10.4 H (2.4-5.1) mg/dL Magnesium 3.5 H (1.6-2.6) mg/dL Total Bilirubin 0.2 L (0.3-1.2) mg/dL AST 46 H (0-34) U/L ALT 27 (10-49) U/L Alkaline Phosphatase 144 H (46-116) U/L Lactate Dehydrogenase 305 H (120-246) U/L Total Creatine Kinase 5020 H (34-171) U/L Troponin I 0.045 (0.0-0.045) ng/mL B-Natriuretic Peptide 54 (0-100) pg/mL Total Protein 5.4 L (5.7-8.2) gm/dL Albumin 2.9 L 3.5 D (3.4-4.8) gm/dL Globulin 2.5 (2.3-3.5) gm/dL Albumin/Globulin Ratio 1.2 (1.2-2.2) Lipase 292 H (12-53) U/L Beta-Hydroxybutyrate/Acetoacetate 3.3 H (<0.6) mmol/L Procalcitonin 49.39 H (0.0-0.49) ng/ml Ur Collection Type Clean Catch Urine Color Lt-Yellow (Lt Yel-Yel) Urine Clarity Turbid A (Clear/Hazy) Urine pH 7.0 (5.0-7.0) Ur Specific [place] 1.020 (1.001-1.035) Urine Protein 4+ A (Neg - Trace) Urine Glucose (UA) 4+ A (Negative) Urine Ketones 1+ A (Negative) Urine Blood 2+ A (Negative) Urine Nitrite Negative (Negative) Urine Bilirubin Negative (Negative) Urine Urobilinogen (Auto) Negative (0.0-1.0) mg/dL Ur Leukocyte Esterase Positive (Negative) Urine RBC 16 H (0-3) /hpf Urine WBC 3826 H (0-5) /hpf Ur Squamous Epith Cells 0 (0-5) /hpf Urine Bacteria 1+ A (None) Critical Care Time Critical Care Time Total Critical Care Time (min.): 45 Attestation: Excluding procedures Discharge Plan Plan Patient Disposition: Admit Acute Care w/in Hospital Disposition Comment: Critical Problem List Clinical Impression: DKA (diabetic ketoacidosis), Altered mental status, Acute renal failure, Urinary tract infection, Hyperphosphatemia PA/CUSTOMER AGENT Supervising Physician DIANE/CUSTOMER AGENT Supervising Physician: Koko Robertson ENP, MD Attestation MD Attestation The patient was seen primarily by the midlevel practitioner. Due to the gravity of the patient's condition I also encountered and examined the patient and remained present during the entire ER visit. I assisted in the management, treatment and medical decision making process. I agree with the plan and documentation.
[2024-11-12] MEDS: cefTRIAXone/D5w 1gm IV premix 50 ML IV (14:44)
[2024-11-12 14:59] LABS: Collection Type, Urine Clean Catch; Squamous Epithelial Cell,Urine 0 /hpf (0-5)
[2024-11-12 15:09] LABS: Beta Hydroxybutyrate 3.3 mmol/L (<0.6)
[2024-11-12 15:15] LABS: Lactate (Lactic Acid) 4.8 mMol/L (0.4-2.0)
[2024-11-12 15:26] LABS: B-Type Natriuretic Peptide 54 pg/mL (0-100); Basophils % (Auto) 0 % (0-2.5); Eosinophils % (Auto) 0 % (0-10); Hematocrit 40.9 % (41.0-53.0); Hemoglobin 12.7 g/dL (13.5-16.0); Immature Granulocytes % (Auto) 3 % (0-0); Immature Granulocytes Auto 0.45 Thou/mm3 (0.00-0.00); Lymphocytes # (Auto) 0.3 Thou/mm3 (1.0-4.8); Lymphocytes % (Auto) 2 % (10-50); Mean Corpuscular HGB Conc 31.1 g/dl (31.0-37.0); Mean Corpuscular Volume 97 fL (80-100); Monocytes # (Auto) 0.5 Thou/mm3 (0.0-0.8); Monocytes % (Auto) 3 % (0-12); Neutrophils # (Auto) 14.7 Thou/mm3 (1.8-7.7); Neutrophils % (Auto) 92 % (37-80); Nucleated Red Blood Cell % 0 /100 WBC (0); Platelet Count 208 Thou/mm3 (140-440); RDW Standard Deviation 51.7 fL (35.1-43.9); Red Blood Count 4.23 Miln/mm3 (4.50-5.90)
[2024-11-12 15:39] LABS: Alanine Aminotransferase 27 U/L (10-49); Albumin, Serum 2.9 gm/dL (3.4-4.8); Albumin/Globulin Ratio 1.2 (1.2-2.2); Alkaline Phosphatase 144 U/L (46-116); Anion Gap 21 (7-16); Aspartate Amino Transferase 46 U/L (0-34); BUN/Creatinine Ratio 21 Ratio (12-20); Bilirubin,Total 0.2 mg/dL (0.3-1.2); Calcium 7.1 mg/dL (8.3-10.6); Chloride 110 mMol/L (98-107); Creatinine (Component) 5.6 mg/dL (0.6-1.3); Globulin 2.5 gm/dL (2.3-3.5); INR 1.3 (0.9-1.3); LDH (Lactate Dehydrogenase) 305 U/L (120-246); Lipase 292 U/L (12-53); Magnesium 3.5 mg/dL (1.6-2.6); Osmolality,Calculated 380 (275-295); Partial Thromboplastin Time 31.3 Seconds (22.0-36.0); Procalcitonin 49.39 ng/ml (0.0-0.49); Prothrombin Time 14.4 Seconds (9.0-12.2); Sodium 141 mMol/L (136-145); Total Protein 5.4 gm/dL (5.7-8.2); Troponin I 0.045 ng/mL (0.0-0.045); eGFR 10 See Note
[2024-11-12 15:41] LABS: Carbon Dioxide < 10.0 mMol/L (20.0-31.0); Glucose 1213 mg/dL (74-106); Potassium 6.1 mMol/L (3.4-5.1)
[2024-11-12 15:42] LABS: Phosphorous 11.5 mg/dL (2.4-5.1)
[2024-11-12 15:44] LABS: Base Excess, Venous -19 (-3-3); O2 Saturation, Venous 96 % (96-97); PCO2, Venous 22 mmHg (36-56); PO2, Venous 92 mmHg (15-58); pH, Venous 7.17 (7.33-7.66)
[2024-11-12] MEDS: CALCIUM GLUCONATE 10% INJ 1 GM/10 ML VIAL IV (15:53)
[2024-11-12 16:08] LABS: Blood Urea Nitrogen 117 mg/dL (9-23)
[2024-11-12 16:13] LABS: Bilirubin,Urine Negative (Negative); Blood,Urine 2+ (Negative); Glucose, Urine 4+ (Negative); Ketones,Urine 1+ (Negative); Leukocyte Esterase,Urine Positive (Negative); Nitrite,Urine Negative (Negative); Protein,Urine 4+ (Neg - Trace); RBC,Urine 16 /hpf (0-3); Urobilinogen,Urine Negative mg/dL (0.0-1.0); WBC,Urine 3826 /hpf (0-5)
[2024-11-12 16:16] LABS: Bacteria,Urine 1+; Clarity,Urine Turbid (Clear/Hazy); Color,Urine Lt-Yellow (Lt Yel-Yel)
[2024-11-12] MEDS: Norepinephrine/D5W 8mg/250ml 8 MG/250 ML BAG 6.804 MG IV (16:16)
[2024-11-12] MEDS: INSULIN REG 100 UNITS/100 ML 100 UNIT/100 ML BAG 7.258 UNIT IV ×2 (16:21→19:00)
[2024-11-12] MEDS: KETAMINE 50 MG/ML VIAL 10 ML 200 MG IVP (16:54)
[2024-11-12] MEDS: ROCURONIUM INJ 10 MG/ML VIAL 10 ML 70 MG IVP (16:56)
--- NOTE | 2024-11-12 17:06 | XR_ITS ---
Examination: CT chest, without intravenous contrast. CT abdomen, without intravenous contrast. CT pelvis, without intravenous contrast. 2-D sagittal and coronal reconstructions. 3-D reconstructions. Date and time of exam:November 12, 20242010 hrs. Indications: Epigastric pain abdominal pain today, clinical diagnosis pancreatitis, hypoxic respiratory failure postintubation CTDI vol (mgy) 7.43 DLP (MGycm)607 Technique: Multiple CT images, 3.0 mm slice thickness, obtained chest, abdomen, pelvis, with the high-resolution 64 slice scanner.. Sagittal and coronal 2-D reconstructions are obtained. 3-D reconstructions Low dose protocols were performed. One or more of the following dose reduction techniques were used; automated exposure control, adjustment of the mA and/or KV according to patient size, use of iterative reconstruction technique. Findings: Tracheal tube tip 2.5 cm above elan No thoracic aortic aneurysm dilatation Pulmonary artery segments are not enlarged Pneumonia both lower lobes with mildly prominent right hilar region, consider aspiration pneumonia No focal liver or splenic lesions Gallstones Gallbladder wall does not appear thickened Orogastric tube in the stomach Mild nodular thickening left adrenal gland No renal or ureteral calculi, no hydronephrosis Heavy abdominal aortic calcification no aneurysmal dilatation No pericecal inflammatory change Moderate stool throughout the entire colon Abundant stool in the rectum with thickening of the rectal wall Transverse prostate dimension 4.1 cm Urinary bladder contracted around a Ferraro catheter Moderate to advanced degenerative disc disease lower 3 lumbar levels Moderate narrowing hip joints Impression: Tracheal tube tip 2.5 cm above elan Bibasilar pneumonia, consider aspiration pneumonia Cholelithiasis Abundant stool in the rectum with thickening of the rectal wall, proctitis would be included in the differential No pancreatic edema noted on this noncontrast study
--- NOTE | 2024-11-12 17:06 | XR_ITS ---
Examination: CT brain head without contrast. 2-D sagittal coronal reconstructions Date and time of exam:November 12, 20242008 hrs. Overdose status today Comparison: June 06, 2024 CTDI: vol (mGy):53.1 DLP: (mGycm):1000 Technique: Multiple CT axial sections of the brain have been obtained, 5 mm slice thickness. Contrast has not been administered. 2-D sagittal, coronal reconstructions have been obtained Low dose protocols were performed. One or more of the following dose reduction techniques were used; automated exposure control, adjustment of the mA and/or KV according to patient size, use of iterative reconstruction technique. Findings: No significant ventricular enlargement. Intra-axial or extra-axial hemorrhage density is not seen. No mass effect or midline shift Basal cisterns are not remarkable. Fourth ventricle is midline. Cranial vault intact. Impression: Negative for acute hemorrhage, mass effect or midline shift 1189 As clinically warranted, brain MRI follow-up would best assess for acute ischemic change
--- NOTE | 2024-11-12 17:43 | XR_ITS ---
Examination: AP chest single view Technique: AP portable supine chest single view Exam date and time: November 12, 2024 1750 hrs. Comparison November 12, 2024 1451 hrs. Indications: Hypoxic respiratory failure, postintubation, post central line placement Findings: Normal heart size Mild opacity both bases consistent with pneumonia Endotracheal tube tip 4 cm above elan Air distended stomach Right internal jugular central line tip SVC no pneumothorax Impression: Endotracheal tube tip 4 cm above elan Right internal jugular central line tip SVC satisfactory position no pneumothorax Moderately air distended stomach
--- NOTE | 2024-11-12 17:48 | PC.NURSE ---
verbal given for emergency titration of norepi at this time, as pts MAP is not going up.
--- NOTE | 2024-11-12 17:51 | ESCONSULT_ITS ---
History of Present Illness Data of Consult Consult date: 11/12/24 Primary Care Provider: Physician No Primary/Family Consult Narrative Reason for consult: NEELAM, metabolic acidosis History of present illness: Chart review done Mr. Robertson is a 78-year-old gentleman with extensive past medical history of hypertension, dyslipidemia, coronary artery disease status post CABG, stroke, drug abuse presented to the emergency department brought in by ambulance with altered mental status. In the emergency department patient was hypothermic with a temp of 93.9. Patient was given Ojby hugger. Labs showed WBC 16, hemoglobin 12.7, platelets 208. ABG showing pH 7.19, pCO2 35, pO2 471, HCO3 14. Chemistry showing sodium 141, potassium 6.3, bicarbonate less than 10, BUN 117, creatinine 5.6, glucose 1213, lactic acid 4.8, phosphorus 11.5, magnesium 3.5, AST 46, ALT 27, alk phos 144, CK5 020, troponin 0.045, albumin 2.9, Pro-Camilo 49.3, lipase 292, beta hydroxy 3.3 urinalysis shows significant pyuria, urine tox screen positive for amphetamines. Chest x-ray showed no pneumonia. CT abdomen showed pneumonia, proctitis, kidneys with no hydronephrosis. Patient received 3L of NS at ED, calcium gluconate, ceftriaxone. At ED patient's BP dropped significantly after being warmed prompting initiation of Levophed via peripheral line until central line was placed, patient was also intubated for airway protection. Patient was admitted to ICU for further evaluation and care of septic shock/ DKA with severe metabolic derangements, and NEELAM. CT imaging of head, chest/abdomen/pelvis were pending. Patient was started on insulin. Renal consultation requested for metabolic acidosis, acute renal failure. Currently seen in the emergency department. Dr. Muñoz and team are planning to place a central line. cc:: cc: Review of Systems Review of Systems ROS Unobtainable: unobtainable due to mental status and unobtainable due to medical condition Past Medical History Past Medical History NEUROLOGIC: Positive Neurological Disorders CARDIAC: Positive Cardiac Disorders, Coronary Artery Disease, Hypercholesterolemia and Hypertension; Negative Congestive Heart Failure RESPIRATORY: Negative Chronic Obstructive Pulmonary Disease (COPD) or Asthma GENITOURINARY: Negative Renal Disease ENDOCRINE: Positive Diabetes Mellitus Type 2; Negative Diabetes Mellitus Type 1 HEMATOLOGIC: Negative Sickle Cell Disease OTHER HISTORY: Positive Hospitalization and Falls; Negative Blood Transfusions or Anesthesia Reactions Surgical History SURGICAL: Positive Cardiac Surgery, Coronary Stent, Cardiac Catheterization and Angiogram Social History SMOKING STATUS: Smoker, status unknown Meds Home Medications and Allergies Allergies Allergy/AdvReac Type Severity Reaction Status Date / Time No Known Allergies Allergy Verified 10/02/24 15:42 Exam Vital Signs Temp Pulse Resp BP Pulse Ox O2 Del Method O2 Flow Rate 33.8 C L 71 17 82/52 L 97 Mechanical Ventilation 15 11/12/24 15:19 11/12/24 17:18 11/12/24 16:00 11/12/24 17:18 11/12/24 17:18 11/12/24 16:00 11/12/24 15:25 FiO2 100 11/12/24 17:18 Narrative Exam GENERAL APPEARANCE: Patient in the emergency department. Disheveled CARDIOVASCULAR: Heart regular, no murmurs LUNGS/CHEST: Few rhonchi noted bilaterally ABDOMEN: Soft, nontender, nondistended. No masses. Normal bowel sounds. EXTREMITIES: No edema, clubbing or cyanosis. SKIN: Skin exam normal without any rashes MUSCULOSKELETAL: In bed NEUROLOGICAL : Unresponsive Results Labs 11/14/24 07:40 11/14/24 13:35 Labs: Short CBC 11/12/24 Range/Units 15:00 WBC 16.0 H (3.8-10.6) Thou/mm3 Hgb 12.7 L (13.5-16.0) g/dL Hct 40.9 L (41.0-53.0) % Plt Count 208 (140-440) Thou/mm3 BMP 11/12/24 15:00 Sodium 141 Potassium 6.1 H* Chloride 110 H Carbon Dioxide < 10.0 L* BUN 117 H* Creatinine 5.6 H* Glucose 1213 H* Calcium 7.1 L Cardiac Enzymes 11/12/24 Range/Units 15:00 Troponin I 0.045 (0.0-0.045) ng/mL Liver Function 11/12/24 Range/Units 15:00 Total Bilirubin 0.2 L (0.3-1.2) mg/dL AST 46 H (0-34) U/L ALT 27 (10-49) U/L Alkaline Phosphatase 144 H (46-116) U/L Albumin 2.9 L (3.4-4.8) gm/dL Urine 11/12/24 Range/Units 14:38 Urine Color Lt-Yellow (Lt Yel-Yel) Urine Clarity Turbid A (Clear/Hazy) Urine pH 7.0 (5.0-7.0) Ur Specific [place] 1.020 (1.001-1.035) Urine Protein 4+ A (Neg - Trace) Urine Glucose (UA) 4+ A (Negative) ABG Interpretation ABG results: 11/12/24 15:00 VBG pH 7.17 L VBG pCO2 22 L VBG pO2 92 H VBG Base Excess -19 L Assessment & Plan Additional Assessment & Plan Additional Plan: Mr. Robertson is a 78-year-old gentleman with multiple medical problems presented with- # ARF secondary to prerenal azotemia with diabetic ketoacidosis and septic shock #Hyperkalemia #Hyperosmolar hyperchloremic hypernatremia -corrected for blood sugar 1200 is 128 #Hypermagnesemia #Hyperphosphatemia # Anion gap metabolic acidosis #Lactic acidosis. # Hypoxic respiratory failure # Metabolic encephalopathy Spoke to Dr. Muñoz-will start patient on IV fluids. If no improvement in urine output, electrolyte imbalance-will need renal replacement therapy in the next few hours. Will monitor him closely. Thank you Dr. Muñoz for allowing me to participate in the care of Mr. Robertson
[2024-11-12] MEDS: PIPER/TAZO INJ 3.375 GM in SODIUM CHLORIDE 0.9% (P) 50 ML IV ×2 (17:56→22:56)
[2024-11-12] MEDS: RINGERS LACTATED 1000 ML 1,000 ML 250 ML IV (17:59)
[2024-11-12 18:04] LABS: Reflex Lactate? Y
[2024-11-12] MEDS: SODIUM CHLORIDE 0.9% 1000 ML 1,000 ML 150 ML IV (18:05)
[2024-11-12 18:06] LABS: Hematocrit 46.2 % (41.0-53.0); Hemoglobin 14.5 g/dL (13.5-16.0)
--- NOTE | 2024-11-12 18:06 | PD.RESPROC ---
Procedures Procedure Date / Time 11/12/24 1606 Procedure Narrative Procedure Narrative: Attending Attestation: I was present for entire procedure. Patient tolerated procedure well with no immediate complications. Chest x-ray shows adequate position of the end of CVC. No postprocedural pneumothorax. Central Line Placement Right IJ: Indication(s): shock Informed consent obtained: procedure done urgently Time out done, and the following verified: correct patient, side and site, procedure, patient position and implants and/or equipment Patient placed on monitor/pulse ox: Yes Hand Hygiene: soap & water Max Sterile Barrier Techniques used: cap, mask, sterile gown, sterile gloves, sterile full body drape and other Central line prep: Chlorhexidine scrub Local anesthesia used: lidocaine 1% Amount of anesthesia used (mL): 5 Ultrasound used for placement: Yes Sterile Technique if Ultrasound used, including sterile gel: yes Central line lumen inserted: triple Post procedure: sutured in place, good blood return, all ports aspirated, flushed, capped and sterile dressing applied Post procedure x-ray: tip of catheter in good position and no pneumothorax seen Patient tolerated procedure: well and no complications EBL(ml): 10 Complications: none Procedure comment: Right IJ triple-lumen central catheter placed due to shock requiring pressor support. Procedure performed under supervision of Dr. Muñoz, completed without complications. John Scruggs MD PGY-1
--- NOTE | 2024-11-12 18:10 | PD.RESHP ---
Documentation for date of: 11/12/24 HPI History of Present Illness Chief complaint: Altered mentation History of present illness: 78 year old male patient with PMHx of CABG, CVA, HTN, HLD, and meth/fentanyl use BIBA after he was found at home non-responsive, attempts to contact patient's were unsuccessful, no history is obtainable from patient's, all hx obtained from chart review and ED provider. On arrival patient's vitals were noted for BP 160/105, HR 51, and temp of 93.9, bedside glucose readings were high with no specific number given, patient was started on Joby hugger, CBC showed leukocytosis of 16, BMP showed significant metabolic derangements with sodium 141, K6.3, bicarb 12.7, anion gap 20, BUN 136, creatinine 6.0, glucose 1121, serum Osmo 382, lactate 4.8, phosphorus 10.4, mag 3.5, LDH 305, lipase 292, beta hydroxybutyrate 3.3, Pro-Camilo of 50 with turbid UA significant amounts of glucose/protein/WBC/RBC. EKG was negative for ST segment elevation/T wave changes. Signs of trauma were noted on patient is chest at both lower sides of rib cage with ecchymosis 3x6cm, upper extremities were noted for purpleish discoloration of hands bilaterally. Patient received 3L of NS at ED, calcium gluconate, ceftriaxone. At ED patient's BP dropped significantly after being warmed prompting initiation of Levophed via peripheral line until central line was placed, patient was also intubated for airway protection. Patient was admitted to ICU for further evaluation and care of septic shock/ DKA with severe metabolic derangements, and NEELAM. CT imaging of head, chest/abdomen/pelvis were pending. PMH: As above PSH: CABG, CAD post stent SH: Denies smoking, drinking alcohol. Active meth use. Allergies: Metformin causes diarrhea Review of Systems Review of Systems ROS Unobtainable: unobtainable due to mental status Past Medical History Past Medical History CARDIAC: Positive Coronary Artery Disease, Hypercholesterolemia and Hypertension ENDOCRINE: Positive Diabetes Mellitus Type 2 Exam Vital Signs Temp Pulse Resp BP Pulse Ox O2 Del Method O2 Flow Rate 93 F L 71 17 82/52 L 97 Mechanical Ventilation 15 11/12/24 15:19 11/12/24 17:18 11/12/24 16:00 11/12/24 17:18 11/12/24 17:18 11/12/24 16:00 11/12/24 15:25 FiO2 100 11/12/24 17:18 Narrative Exam GEN: Critically ill, acutely distressed and dishelved, sedated and intubated. Neuro: Deferred due to sedation. HEENT: NCAT, trachea midline, moist mucous membranes, ET tube, PO tube noted. CVS: RRR, S1S2 present, no M/R/G. No JVD. Resp: CTA B/L. No rhonchi, rales, crackles or wheezing, ecchymosis on both lower lateral ends of rib cage. ABD: Soft, no grimace to palpation, bowel sounds present in all 4 quadrants. MSK: Muscle wasting noted on BLE. BUE purpulish discoloration noted, no edema or rash. Results: Labs 11/13/24 05:20 11/13/24 13:20 Labs: Short CBC 11/12/24 Range/Units 15:00 WBC 16.0 H (3.8-10.6) Thou/mm3 Hgb 12.7 L (13.5-16.0) g/dL Hct 40.9 L (41.0-53.0) % Plt Count 208 (140-440) Thou/mm3 BMP 11/12/24 15:00 Sodium 141 Potassium 6.1 H* Chloride 110 H Carbon Dioxide < 10.0 L* BUN 117 H* Creatinine 5.6 H* Glucose 1213 H* Calcium 7.1 L Cardiac Enzymes 11/12/24 Range/Units 15:00 Troponin I 0.045 (0.0-0.045) ng/mL Liver Function 11/12/24 Range/Units 15:00 Total Bilirubin 0.2 L (0.3-1.2) mg/dL AST 46 H (0-34) U/L ALT 27 (10-49) U/L Alkaline Phosphatase 144 H (46-116) U/L Albumin 2.9 L (3.4-4.8) gm/dL Urine 11/12/24 Range/Units 14:38 Urine Color Lt-Yellow (Lt Yel-Yel) Urine Clarity Turbid A (Clear/Hazy) Urine pH 7.0 (5.0-7.0) Ur Specific [place] 1.020 (1.001-1.035) Urine Protein 4+ A (Neg - Trace) Urine Glucose (UA) 4+ A (Negative) ABG Interpretation ABG results: 11/12/24 15:00 VBG pH 7.17 L VBG pCO2 22 L VBG pO2 92 H VBG Base Excess -19 L Quality Measures Quality Measures VTE prophylaxis Advance care planning discussed with:: other (Unable to contact family despite multiple attempts.) Medications Home Medications and Allergies Allergies Allergy/AdvReac Type Severity Reaction Status Date / Time No Known Allergies Allergy Verified 10/02/24 15:42 Visit Medications Dextrose (Dextrose 50%-Water Inj 50 Ml Syringe) 25 ml IV [id number] PRN PRN Reason: Blood Sugar - Low Sodium Chloride (Ns) 1,000 mls @ 150 mls/hr IV .Q6H40M MARIE Stop: 11/13/24 15:20 Last Admin: 11/12/24 18:05 Dose: 150 mls/hr Norepinephrine/Dextrose (Levophed In D5w 8mg/250ml) 8 mg in 250 mls @ 6.804 mls/hr IV .Q24H PRN; Protocol PRN Reason: PER PROTOCOL Stop: 12/12/24 16:04 Last Titration: 11/12/24 18:06 Dose: 0.3 mcg/kg/min, 40.823 mls/hr Insulin Human Regular (Myxredlin) 100 unit in 100 mls @ 7.258 mls/hr IV .[id number] PRN; Protocol PRN Reason: PER PROTOCOL Stop: 12/12/24 15:56 Last Titration: 11/12/24 17:21 Dose: 0.1 unit/kg/hr, 7.258 mls/hr Fentanyl Citrate (Sublimaze Inj 2,500 Mcg/250 Ml Bag) 2,500 mcg in 250 mls @ 2.5 mls/hr IV .Q24H PRN; Protocol PRN Reason: PER PROTOCOL Stop: 11/17/24 16:57 Potassium Chloride (Kcl Ivpb) 10 meq in 100 mls @ 100 mls/hr IV .Q1H PRN PRN Reason: IF POTASSIUM LESS THAN 3.3 Stop: 12/12/24 17:16 Magnesium Sulfate (Magnesium Sulfate Ivpb) 2 gm in 50 mls @ 25 mls/hr IV .Q2H PRN PRN Reason: PER DKA PROTOCOL Stop: 12/12/24 17:16 Dextrose/Lactated Ringer's (D5-Lr) 1,000 mls @ 250 mls/hr IV .Q4H PRN PRN Reason: PER PROTOCOL Stop: 12/12/24 17:16 Lactated Ringer's (Lactated Ringers) 1,000 mls @ 250 mls/hr IV .Q4H PRN PRN Reason: PER PROTOCOL Stop: 11/13/24 17:16 Last Admin: 11/12/24 17:59 Dose: 250 mls/hr Potassium Chloride 20 meq/ (Lactated Ringer's) 1,010 mls @ 250 mls/hr IV .Q4H3M PRN PRN Reason: K LEVEL 3.3 TO 5.3mM/L Stop: 12/12/24 17:16 Potassium Chloride 40 meq/ (Lactated Ringer's) 1,020 mls @ 250 mls/hr IV .Q4H5M PRN PRN Reason: K LEVEL < 3.3 mM/L Stop: 12/12/24 17:16 Potassium Chloride 40 meq/ (Dextrose/Lactated Ringer's) 1,020 mls @ 250 mls/hr IV .Q4H5M PRN PRN Reason: K LEVEL < 3.3mM/L Stop: 12/12/24 17:16 Potassium Cl/Dextrose/Lact Ringer's (Kcl 20 Meq/L In D5-Lr) 20 meq in 1,000 mls @ 250 mls/hr IV .Q4H PRN PRN Reason: K LEVEL 3.3 TO 5.3 mM/L Stop: 12/12/24 17:16 Potassium Chloride (Kcl Ivpb) 10 meq in 100 mls @ 50 mls/hr IV PRN PRN PRN Reason: K LEVEL 3.3 to 5.3 & BG > 200 Stop: 12/12/24 17:16 Potassium Phosphate (Pot Phos 15 Mmol In Ns 250 Ml) 15 mmol in 250 mls @ 62.5 mls/hr IV PRN PRN PRN Reason: Phosphate <= 1mg/dL Stop: 12/12/24 17:16 Sodium Phosphate 15 mmol/ (Sodium Chloride) 255 mls @ 62.5 mls/hr IV .Q4H5M PRN PRN Reason: Phosphate <= 1mg/dL and K> than 5.3 Stop: 12/12/24 17:16 Potassium Chloride (Kcl Ivpb) 100 mls @ 100 mls/hr IV .Q1H PRN PRN Reason: IF POTASSIUM LESS THAN 3.3 Stop: 12/12/24 17:16 Piperacillin Sod/Tazobactam (Sod 3.375 gm/ Sodium Chloride) 50 mls @ 100 mls/hr IV X1 ONE Stop: 11/12/24 18:14 Last Admin: 11/12/24 17:56 Dose: 100 mls/hr Piperacillin Sod/Tazobactam (Sod 3.375 gm/ Sodium Chloride) 50 mls @ 12.5 mls/hr IV Q8HR MARIE Stop: 11/19/24 22:29 Propofol (Diprivan Ivpb) 1,000 mg in 100 mls @ 2.177 mls/hr IV .Q24H PRN; Protocol PRN Reason: PER PROTOCOL Stop: 12/12/24 18:00 Sodium Bicarbonate (Sodium Bicarb Inj 8.4% Syr 50 Ml Syringe) 50 ml IV PRN PRN PRN Reason: For ph <= to 7.0 Stop: 12/12/24 17:16 Discontinued Medications Calcium Gluconate (Calcium Gluconate 10% Inj 1 Gm/10 Ml Vial) 1 gm IV X1 ONE Stop: 11/12/24 15:44 Last Admin: 11/12/24 15:53 Dose: 1 gm Calcium Gluconate (Calcium Gluconate 10% Inj 1 Gm/10 Ml Vial) 1 gm IV X1 ONE Stop: 11/12/24 15:57 Last Admin: 11/12/24 17:57 Dose: Not Given Etomidate (Etomidate Inj 2 Mg/Ml Vial 10 Ml) 20 mg IVP X1 ONE Stop: 11/12/24 16:43 Last Admin: 11/12/24 16:43 Dose: Not Given Ceftriaxone Sodium/Dextrose (Rocephin/D5w 1gm Iv Premix) 50 mls @ 100 mls/hr IV X1 ONE Stop: 11/12/24 14:53 Last Infusion: 11/12/24 15:34 Dose: Infused Sodium Chloride (Ns) 1,000 mls @ 999 mls/hr IV .Q1H1M ONE Stop: 11/12/24 15:24 Last Infusion: 11/12/24 15:35 Dose: Infused Sodium Chloride (Ns) 1,000 mls @ 999 mls/hr IV .Q1H1M ONE Stop: 11/12/24 15:24 Last Infusion: 11/12/24 15:25 Dose: Infused Sodium Chloride (Ns) 1,000 mls @ 999 mls/hr IV .Q1H1M ONE Stop: 11/12/24 16:21 Last Admin: 11/12/24 15:35 Dose: 999 mls/hr Propofol (Diprivan Ivpb) 1,000 mg in 100 mls @ 2.177 mls/hr IV .Q24H PRN; Protocol PRN Reason: PER PROTOCOL Stop: 12/12/24 16:58 Insulin Human Regular (Insulin Hum Regular 1 Unit/0.01 Ml (Per Unit)) 10 unit IV X1 ONE Stop: 11/12/24 15:58 Last Admin: 11/12/24 18:07 Dose: Not Given Ketamine HCl (Ketamine 50 Mg/Ml Vial 10 Ml) 200 mg IVP X1 ONE Stop: 11/12/24 16:44 Last Admin: 11/12/24 16:54 Dose: 200 mg Rocuronium [place] (Rocuronium Inj 10 Mg/Ml Vial 10 Ml) 70 mg IVP X1 ONE Stop: 11/12/24 16:43 Last Admin: 11/12/24 16:56 Dose: 70 mg Sodium Chloride (Sodium Chloride Rt 10% 15 Ml Nebu) 5 ml INH X1 ONE Stop: 11/12/24 17:19 Sodium Chloride (Sodium Chloride Rt 10% 15 Ml Nebu) 5 ml INH X1 ONE Stop: 11/12/24 17:21 Assessment & Plan Plan 78 year old male patient with PMHx of CABG, CVA, HTN, HLD, and meth/fentanyl use BIBA after he was found at home non-responsive at home, no further hx obtained at time of arrival, patient was admitted to ICU for further evaluation and care of septic shock/ DKA with severe metabolic derangements, and NEELAM. CT imaging of head, chest/abdomen/pelvis were pending. 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 CVS #Septic shock Fluid resuscitated, on levophed. Maintain MAP >65. Zosyn F/U Bcx/Ucx/Sputum Cx Resp #Acute hypoxic respiratory failure 2/2 septic shock and DKA Intubated. F/U ABG F/U Bcx, Ucx, Sputum Cx Adjust vent setting accordingly. Patient started on Zosyn for aspiration PNA coverage along with possible abdomen/UTI infection. De-escalate abx as warranted. Renal #ARF 2/2 DKA and septic shock #Hyperkalemia #Hyepr osmolar hyperchloremic hypernatremia #Hypermagnesemia #Hyperphsphatemia #AGMA #Uremia #Lactic acidosis. Corrected Na 167, K 6.3, HCO3 13 -Volume resuscitated, on DKA protocol -Q4hr renal panel. -Max correction 6-8 Meq 24 hrs, .5/hr for serum Na -Replete electrolytes as needed. Patient likely to require HD. Nephrology consulted, recs appreciated. ID #Septic shock 2/2 UTI vs PNA vs Abdominal infect -Fluid resuscitated, on ivf -On Zosyn -F/u Bcx/Ucx/ Sputum Cx Heme #Anemia likely 2/2 CKD vs malnutrition #Leukocytosis 2/2 Pyelonephritis #Thrombocytopenia in setting of severe sepsis 2/2 E. Coli bacteremia/Pylonephritis -DIC possible, but less likely, no evidence of clotting -Suspect improvement as overall condition improves -Hemodynamically stable, no indication to transfuse at the moment. Endo #DKA #AGMA DKA protocol. Slow rate of correction in glucose levels in light of hypernatremia. GI ##Elevated Lipase Pending further imaging. Patient sedated, unable to obtain Hx of pain, nor see it on exam. DVT prophylaxis: Heparin sc Diet: OG tube Ferraro: + Lines: PIV, RIJ CODE STATUS: Full code Reason for hospitalization/disposition: Septic shock/ DKA/ NEELAM Plan of care discussed with attending Dr. Wanda Gaming M.D. PGY-3 Attending Provider Attestation/Addendum Patient seen and examined with above resident, Parish Gaming MD. I agree with the findings, assessment, and plan of care as documented in assessment. Patient admitted with acute encephalopathy secondary to nonketotic hyperosmolar state secondary to hyperglycemia with subsequent acute renal failure. Patient aggressively volume resuscitated with addition of lactated Ringer's and sodium bicarb drip to ensure that sodium remains high and not to large a drop in serum sodium with serial labs being monitored. This has been corrected course for level of hyperglycemia. Ultimately CK is elevated secondary to rhabdomyolysis and the fluid may be helpful. Patient may ultimately require hemodialysis due to hyperkalemia and metabolic acidosis. Uremia continues to be elevated and may be an alternative indication for emergent dialysis we will try to avoid sudden drop in osmolarity which is associated with intervention. Unfortunately we do not have CRRT at low volume to avoid this. Patient's family was unable to be reached so is unclear with the preceding days have been like as a potential etiology for his presentation. Urine drug screen suggestive of amphetamine abuse. Patient with likely community-acquired pneumonia with evolving septic shock secondary to this and has been on vasopressors since intubation. Patient required intubation for acute respiratory failure with a likely hypoxia and hypercapnia, ultimately inability to protect airway due to comatose state. Will maintain on broad-spectrum antibiotics and management and supportive care with goal to avoid further renal damage but I remain skeptical he will be able to get rehospitalization without hemodialysis on some level for hyperkalemia after resuscitation important to get the indications listed above. Nephrology is already available and has discussed care with the ICU team. Total critical care time: Personally spent 60 minutes for review of physiologic parameters, directing plan of care overnight, and coordination of care with other specialists. This is exclusive of time spent teaching housestaff or performing any separate billable procedures. Patient continues require critical care services for septic shock and acute respiratory failure with hypoxia and hypercapnia and significant acute renal failure with multiple metabolic derangements. Continues to be at high risk for further morbidity and mortality requiring continuous aggressive care only available in the ICU.
--- NOTE | 2024-11-12 18:16 | PC.RT ---
spoke to Dr Yoo in regards to not obtaining a ABG sample. Miguel stated they will get a ABG sample when the pt is in the ICU.
[2024-11-12 18:17] LABS: Lactic Acid, 3 HR 4.2 mMol/L (0.4-2.0)
[2024-11-12 18:38] LABS: Albumin, Serum 3.5 gm/dL (3.4-4.8); Anion Gap 20 (7-16); BUN/Creatinine Ratio 23 Ratio (12-20); Calcium 8.3 mg/dL (8.3-10.6); Calcium (Corrected) 8.7 mg/dL (8.5-10.1); Chloride 108 mMol/L (98-107); Estimated Creatinine Clearance 10.8 mL/min (>60); Osmolality,Calculated 382 (275-295); Sodium 141 mMol/L (136-145); eGFR 9 See Note
[2024-11-12 18:41] LABS: Phosphorous 10.4 mg/dL (2.4-5.1)
[2024-11-12 18:42] LABS: Blood Urea Nitrogen 136 mg/dL (9-23)
[2024-11-12 18:48] LABS: Carbon Dioxide 12.7 mMol/L (20.0-31.0); Glucose 1121 mg/dL (74-106); Potassium 6.3 mMol/L (3.4-5.1)
--- NOTE | 2024-11-12 19:03 | PD.RESPROC ---
Procedures Procedure Date / Time 11/12/24 1700 Procedure Narrative Procedure Narrative: Attending Attestation: I was present for entire procedure. Patient tolerated procedure well with no immediate complications. Follow-up chest x-ray shows adequate placement of tip of the ET tube. Intubation Indication(s): inability to protect airway Informed consent obtained: procedure done urgently Time out done, and the following verified: correct patient, side and site, procedure, patient position and implants and/or equipment Sedative: ketamine Mg given: 200 Paralytic: rocuronium Mg given: 70 Laryngoscope: fiber optic video scope Assist device used: fiber optic device ET tube size: 7.5 ET tube uncuffed: No Tube secured depth (cm): 24 Tube secured location: teeth Tube placement confirmation: visualized tube passing through cords, equal breath sounds bilaterally, no breath sounds over epigastrium and confirmation by capnometry Patient tolerated procedure: well and no complications EBL(ml): 0 Intubation complications: none
--- NOTE | 2024-11-12 19:28 | PC.NURSE ---
RT called to check pt, O2 sats keep dropping to low 80s. Pt suctioned and lines checked for kinks and connections checked.
--- NOTE | 2024-11-12 19:32 | PC.NURSE ---
Attempting to get into contact with ICU resident who is not answering regarding insulin drip. accounting clerks supervisor trying to call resident.
--- NOTE | 2024-11-12 19:33 | PC.NURSE ---
Spoke with Dr. Jean, ICU resident, via phone regarding insulin drip order. States he will place new order in and to continue following protocol.
--- NOTE | 2024-11-12 19:35 | PC.NURSE ---
RT at the bedside checking on patient.
[2024-11-12 19:57] LABS: Creatine Kinase 5020 U/L (34-171)
--- NOTE | 2024-11-12 20:05 | PC.NURSE ---
Pt taken to CT scan by myself accompanied by RT. Pt on portable monitor.
--- NOTE | 2024-11-12 20:20 | PC.NURSE ---
Pt back in room after CT scan - pt tolerated well.
[2024-11-12 20:56] LABS: Amphetamine/Methamp Scrn,U Positive (Negative); Barbiturate Screen,Urine Negative (Negative); Benzodiazepines Screen,Urine Negative (Negative); Benzoylecgonine Screen, Ur Negative (Negative); Fentanyl Screen,Urine Negative (Negative); Opiate Screen,Urine Negative (Negative); THC Screen,Urine Negative (Negative)
--- NOTE | 2024-11-12 22:19 | PC.RT ---
called DR. Garzon for an abg order at this time
[2024-11-12] MEDS: Norepinephrine/D5W 8mg/250ml 8 MG/250 ML BAG 65.318 MG IV (22:20)
[2024-11-12] MEDS: fentaNYL 2,500 MCG/250 ML BAG 2,500 MCG/250 ML BAG IV (22:25)
[2024-11-12] MEDS: PROPOFOL 1,000 MG IVPB 1,000 MG/100 ML VIAL 2.177 MG IV (22:25)
[2024-11-12] MEDS: VASOPRESSIN IN NS IVPB 20 UNIT/100 ML BAG 9 UNIT IV (22:55)
[2024-11-12 23:03] LABS: Base Excess -14 (-3-3); HCO3 14 mEq/L (20-26); Inspired Oxygen, FIO2 100 %; O2 Saturation 100 % (91-98); PCO2 35 mmHg (32.0-48.0); PO2 471 mmHg (83-108)
[2024-11-12 23:12] LABS: Allen Test Performed/OK; Puncture Site Right Brachial
[2024-11-12 23:13] LABS: pH, Arterial 7.19 (7.35-7.45)
--- NOTE | 2024-11-12 23:25 | PC.RT ---
DR. Garzon titrated fio2 to 55%, RR increased to 24 per abg results.
[2024-11-12] MEDS: Sodium Bicarb Inj 8.4% SYR 50 ML SYRINGE IV (23:26)
[2024-11-12] MEDS: Sodium Bicarb 8.4% 50ml Vial* 88.23 MEQ in DEXTROSE 5%-WATER 500 ML 100 MEQ IV (23:31)
[2024-11-13] VITALS (289 sets, daily range): BP systolic 70–259; BP diastolic 29–106; PULSE 63–114; RESP 20–28; TEMP 37.2–38.6; O2SAT 61–100; BMI 18.2
[2024-11-13 00:02] LABS: Albumin, Serum 3.3 gm/dL (3.4-4.8); Anion Gap 22 (7-16); Calcium 8.5 mg/dL (8.3-10.6); Calcium (Corrected) 9.1 mg/dL (8.5-10.1); Chloride 112 mMol/L (98-107); Creatinine (Component) 5.8 mg/dL (0.6-1.3); Estimated Creatinine Clearance 11.1 mL/min (>60); Magnesium 3.4 mg/dL (1.6-2.6); Sodium 147 mMol/L (136-145); eGFR 9 See Note
[2024-11-13 00:03] LABS: Carbon Dioxide 12.7 mMol/L (20.0-31.0); Glucose 715 mg/dL (74-106); Potassium 6.9 mMol/L (3.4-5.1)
[2024-11-13 00:19] LABS: BUN/Creatinine Ratio 23 Ratio (12-20); Blood Urea Nitrogen 135 mg/dL (9-23); Osmolality,Calculated 370 (275-295); Phosphorous 9.3 mg/dL (2.4-5.1)
[2024-11-13] MEDS: INSULIN HUM REGULAR 1 UNIT/0.01 ML (PER UNIT) 10 UNIT IV (00:25)
[2024-11-13] MEDS: CALCIUM GLUCONATE 10% INJ 1 GM/10 ML VIAL IV ×3 (00:28→20:54)
--- NOTE | 2024-11-13 01:10 | XR_ITS ---
Examination: Abdomen AP single view Technique: AP portable supine abdomen, single view Exam date and time: November 13, 2024 0113 hrs. Indications: Post right femoral line placement Findings: Right common femoral line noted projecting in distribution of the right iliac vein Abundant stool throughout the colon A few loops of air distended small bowel Orogastric tube tip fundus of the stomach No free air Impression: Advance the right common femoral vein line 4 cm
--- NOTE | 2024-11-13 01:20 | XR_ITS ---
Examination: AP chest single view Technique one AP portable semiupright chest single view Exam date and time: November 13, 2024 0123 hrs. Comparison June 06, 2024 Indications: Altered mental status beginning November 12, 2024, hypoxic respiratory failure postintubation post central line placement Findings: Normal heart size No aspiration pneumonia Right internal jugular central line tip SVC Tracheal tube tip approximately 3.2 cm above elan No pneumothorax No aspiration pneumonia Impression: No pneumonia or pulmonary edema
--- NOTE | 2024-11-13 01:36 | ESOP_ITS ---
Procedures Procedure Date / Time 11/13/24 0136 Procedure Narrative Procedure Narrative: Vascular Catheter Procedure Note: Indication: [_] Hypotension/Sepsis/Need for Pressors [_] Vascular Access [x] Dialysis Access [_] Suspected Central Line Infection [_] Line Malfunction [_] Other: _ Central Line Location: [x] Right or [_] Left [_] Internal Jugular Vein or [_] Subclavian Vein or [x] Femoral Vein Procedure Yoke Presser: Miguel Garzon MD Attending Physician: Dr Kj Casas Consent: [_] Consent was obtained from _ prior to the procedure. Indications, risks and benefits were discussed prior to the procedure. [x] The procedure was performed emergently and the permission was implied because of the emergent nature. PROCEDURE SUMMARY: A time out was performed. My hands were washed immediately prior to the procedure. I wore a surgical cap, mask with protective eyewear, full gown and sterile gloves throughout the procedure. The patient was placed in Trendelenburg position. The [_] Left [x]Right [_] neck [_] chest [x] groin was prepped using [x] chlorhexidine scrub (or [_] other: why _) and draped in sterile fashion using a three quarter sheet drape and sterile towels. Skin preparation was allowed to dry prior to skin puncture. Anatomic landmarks were identified. Anesthesia was achieved over the vein using 1% lidocaine. Using real-time ultrasound, with sterile probe cover and sterile gel, the introducer needle was inserted into the vein under direct ultrasound visualization. Venous blood was withdrawn. The syringe was removed and a guidewire was advanced into the introducer needle. The guidewire was visualized in the appropriate vein by ultrasound. A small incision was made at the skin surface with a scalpel and the introducer needle was exchanged for a dilator over the guidewire. After appropriate dilation was obtained, the dilator was exchanged over the wire for an [antimicrobial coated] central venous catheter. The wire was removed and the catheter was sutured in place at 5cm. A biopatch was placed at the insertion site. A sterile op-site was placed over the catheter and biopatch. The patient tolerated the procedure without any hemodynamic compromise. At time of procedure completion, all ports aspirated and flushed properly. Post-procedure chest x-ray : [x] Is pending at this time. [_] Shows adequate positioning of the catheter for us - Patient's care was discussed with my attending physician, Dr. Augusto Garzon MD Internal Medicine PGY-3
[2024-11-13] MEDS: Norepinephrine/NS 16mg/250ml 16 MG/250 ML BAG 47.627 MG IV (01:48)
[2024-11-13 01:49] LABS: Base Excess 26 (-3-3); HCO3 57 mEq/L (20-26); Inspired Oxygen, FIO2 55 %; O2 Saturation 38 % (91-98); PCO2 115 mmHg (32.0-48.0)
[2024-11-13 01:56] LABS: PO2 23 mmHg (83-108)
[2024-11-13 02:02] LABS: Allen Test Performed/OK; Puncture Site Right Brachial
[2024-11-13 02:04] LABS: Lactate (Lactic Acid) 5.8 mMol/L (0.4-2.0)
[2024-11-13 02:39] LABS: Albumin, Serum 2.9 gm/dL (3.4-4.8); Anion Gap 21 (7-16); BUN/Creatinine Ratio 24 Ratio (12-20); Calcium 8.6 mg/dL (8.3-10.6); Calcium (Corrected) 9.5 mg/dL (8.5-10.1); Carbon Dioxide 18.7 mMol/L (20.0-31.0); Chloride 109 mMol/L (98-107); Creatinine (Component) 5.7 mg/dL (0.6-1.3); Estimated Creatinine Clearance 11.3 mL/min (>60); Magnesium 3.4 mg/dL (1.6-2.6); Osmolality,Calculated 376 (275-295); Sodium 149 mMol/L (136-145); eGFR 10 See Note
[2024-11-13 02:40] LABS: Blood Urea Nitrogen 135 mg/dL (9-23)
[2024-11-13 02:42] LABS: Glucose 769 mg/dL (74-106); Potassium 6.5 mMol/L (3.4-5.1)
[2024-11-13 03:30] LABS: Base Excess -8 (-3-3); HCO3 17 mEq/L (20-26); Inspired Oxygen, FIO2 55 %; O2 Saturation 100 % (91-98); PCO2 32 mmHg (32.0-48.0); PO2 202 mmHg (83-108); pH, Arterial 7.33 (7.35-7.45)
[2024-11-13 03:31] LABS: Allen Test Performed/OK; Puncture Site Right Brachial
[2024-11-13] MEDS: INSULIN REG 100 UNITS/100 ML 100 UNIT/100 ML BAG 7.258 UNIT IV ×2 (03:54→22:00)
[2024-11-13] MEDS: Sodium Bicarb 8.4% 50ml Vial* 88.23 MEQ in DEXTROSE 5%-WATER 500 ML 150 MEQ IV (04:06)
[2024-11-13] MEDS: RINGERS LACTATED 1000 ML 1,000 ML 100 ML IV (04:07)
--- NOTE | 2024-11-13 04:38 | PD.RESPROC ---
Procedures Procedure Date / Time 11/13/24 0438 Arterial Line Indication(s): frequent arterial line sampling and shock Informed consent obtained: procedure done urgently Time out done, and the following verified: correct patient, side and site, procedure, patient position and implants and/or equipment Size (Gauge): 20 Technique used: guide wire technique Post-Procedure: line sutured into place and dry sterile dressing placed Patient tolerated procedure: well and no complications EBL(ml): 5 Complications: none Site: left
[2024-11-13 04:55] LABS: Reflex Lactate? Y
[2024-11-13 05:48] LABS: Lactic Acid, 3 HR 5.6 mMol/L (0.4-2.0)
--- NOTE | 2024-11-13 06:21 | PC.NURSE ---
PT CLOTTED FACILITY RAN GENERATOR CHECK, ALL BLOOD RETURNED. WILL RESTRING MACHINE PER MD [place] AND RESUME TX.
[2024-11-13 06:25] LABS: Influenza A Ag Negative; Influenza B Ag Negative
[2024-11-13] MEDS: Norepinephrine/NS 16mg/250ml 16 MG/250 ML BAG 57.153 MG IV (06:28)
[2024-11-13] MEDS: PIPER/TAZO INJ 3.375 GM in SODIUM CHLORIDE 0.9% (P) 50 ML IV ×3 (06:28→21:46)
[2024-11-13] MEDS: HEPARIN SOD INJ 1000 UNIT/ML VIAL 10 ML 2500 UNIT INDWELLCAT ×2 (06:30→09:25)
[2024-11-13 06:45] LABS: Albumin, Serum 2.9 gm/dL (3.4-4.8); Anion Gap 18 (7-16); BUN/Creatinine Ratio 23 Ratio (12-20); Calcium 7.5 mg/dL (8.3-10.6); Calcium (Corrected) 8.4 mg/dL (8.5-10.1); Chloride 114 mMol/L (98-107); Creatinine (Component) 5.5 mg/dL (0.6-1.3); Estimated Creatinine Clearance 11.7 mL/min (>60); Glucose 354 mg/dL (74-106); Magnesium 2.7 mg/dL (1.6-2.6); Osmolality,Calculated 350 (275-295); Phosphorous 6.3 mg/dL (2.4-5.1); Potassium 5.7 mMol/L (3.4-5.1); Sodium 149 mMol/L (136-145); eGFR 10 See Note
[2024-11-13] MEDS: PROPOFOL 1,000 MG IVPB 1,000 MG/100 ML VIAL 15.241 MG IV ×2 (06:45→15:00)
[2024-11-13] MEDS: ALBUMIN HUMAN 25% IVPB 25 GM/100 ML BTL IV (06:52)
[2024-11-13 06:53] LABS: Blood Urea Nitrogen 126 mg/dL (9-23)
--- NOTE | 2024-11-13 06:57 | PC.NURSE ---
BP LOW PT REMAINS W/O DISTRESS NOTED, BEDSIDE NURSE NOTIFIED, WILL ADMIN PRN ALBUMIN 25/100ML AND CONT. TO MONITOR
[2024-11-13] MEDS: VASOPRESSIN IN NS IVPB 20 UNIT/100 ML BAG 9 UNIT IV ×2 (08:03→19:13)
[2024-11-13 08:05] LABS: Basophils % (Auto) 0 % (0-2.5); Eosinophils # (Auto) 0.1 Thou/mm3 (0.0-0.5); Eosinophils % (Auto) 1 % (0-10); Hematocrit 40.4 % (41.0-53.0); Hemoglobin 13.5 g/dL (13.5-16.0); Immature Granulocytes % (Auto) 0 % (0-0); Immature Granulocytes Auto 0.04 Thou/mm3 (0.00-0.00); Lymphocytes # (Auto) 0.3 Thou/mm3 (1.0-4.8); Lymphocytes % (Auto) 3 % (10-50); Mean Corpuscular HGB Conc 33.4 g/dl (31.0-37.0); Mean Corpuscular Hemoglobin 30.1 pg (25.0-35.0); Mean Corpuscular Volume 90 fL (80-100); Monocytes # (Auto) 0.2 Thou/mm3 (0.0-0.8); Monocytes % (Auto) 2 % (0-12); Neutrophils # (Auto) 9.5 Thou/mm3 (1.8-7.7); Neutrophils % (Auto) 94 % (37-80); Nucleated Red Blood Cell % 0 /100 WBC (0); Platelet Count 145 Thou/mm3 (140-440); RDW Standard Deviation 48.2 fL (35.1-43.9); Red Blood Count 4.49 Miln/mm3 (4.50-5.90); White Blood Count 10.1 Thou/mm3 (3.8-10.6)
--- NOTE | 2024-11-13 08:47 | PC.NURSE ---
tx resumed w/o complications.
[2024-11-13 09:27] LABS: Creatine Kinase 3328 U/L (34-171)
[2024-11-13 10:11] LABS: Albumin, Serum 3.5 gm/dL (3.4-4.8); Anion Gap 15 (7-16); BUN/Creatinine Ratio 21 Ratio (12-20); Blood Urea Nitrogen 75 mg/dL (9-23); Calcium 7.6 mg/dL (8.3-10.6); Carbon Dioxide 22.5 mMol/L (20.0-31.0); Chloride 108 mMol/L (98-107); Creatinine (Component) 3.6 mg/dL (0.6-1.3); Estimated Creatinine Clearance 14.2 mL/min (>60); Glucose 120 mg/dL (74-106); Magnesium 2.2 mg/dL (1.6-2.6); Osmolality,Calculated 311 (275-295); Phosphorous 3.6 mg/dL (2.4-5.1); Potassium 4.9 mMol/L (3.4-5.1); Sodium 145 mMol/L (136-145); eGFR 17 See Note
[2024-11-13] MEDS: Norepinephrine/NS 16mg/250ml 16 MG/250 ML BAG 53.07 MG IV (11:24)
--- NOTE | 2024-11-13 11:46 | PD.NEPHPROG ---
Documentation for date of: 11/13/24 Subjective Subjective Interval history: Chart review done Mr. Robertson is a 78-year-old gentleman with extensive past medical history of hypertension, dyslipidemia, coronary artery disease status post CABG, stroke, drug abuse presented to the emergency department brought in by ambulance with altered mental status. In the emergency department patient was hypothermic with a temp of 93.9. Patient was given Joby hugger. Labs showed WBC 16, hemoglobin 12.7, platelets 208. ABG showing pH 7.19, pCO2 35, pO2 471, HCO3 14. Chemistry showing sodium 141, potassium 6.3, bicarbonate less than 10, BUN 117, creatinine 5.6, glucose 1213, lactic acid 4.8, phosphorus 11.5, magnesium 3.5, AST 46, ALT 27, alk phos 144, CK5 020, troponin 0.045, albumin 2.9, Pro-Camilo 49.3, lipase 292, beta hydroxy 3.3 urinalysis shows significant pyuria, urine tox screen positive for amphetamines. Chest x-ray showed no pneumonia. CT abdomen showed pneumonia, proctitis, kidneys with no hydronephrosis. Patient received 3L of NS at ED, calcium gluconate, ceftriaxone. At ED patient's BP dropped significantly after being warmed prompting initiation of Levophed via peripheral line until central line was placed, patient was also intubated for airway protection. Patient was admitted to ICU for further evaluation and care of septic shock/ DKA with severe metabolic derangements, and NEELAM. CT imaging of head, chest/abdomen/pelvis were pending. Patient was started on insulin. Renal consultation requested for metabolic acidosis, acute renal failure. Currently seen in the emergency department. Dr. Muñoz and team are planning to place a central line. 11/13/2024 patient currently seen in ICU. Urine output still remains very low. This morning patient had significant electrolyte imbalance, intractable metabolic acidosis that I had to do emergency dialysis. However osmolality dropped significantly and I spoke to Dr. Muñoz-planning for 3% hypertonic saline. Patient remains ventilated. Review of Systems Review of Systems ROS Unobtainable: unobtainable due to medical condition and due to endotracheal tube Exam Vital Signs Temp Pulse Resp BP Pulse Ox O2 Del Method O2 Flow Rate 37.2 C 87 24 H 148/54 H 92 L Mechanical Ventilation 15 11/13/24 09:17 11/13/24 11:24 11/13/24 09:17 11/13/24 11:24 11/13/24 11:06 11/12/24 21:19 11/12/24 15:25 FiO2 65 11/13/24 11:06 Narrative Exam GENERAL APPEARANCE: Patient in ICU. Intubated, sedated Right IJ central line Right femoral Vas-Cath CARDIOVASCULAR: Heart regular, no murmurs LUNGS/CHEST: Few rhonchi noted bilaterally ABDOMEN: Soft, nontender, nondistended. No masses. Normal bowel sounds. EXTREMITIES: No edema, clubbing or cyanosis. SKIN: Skin exam normal without any rashes MUSCULOSKELETAL: In bed NEUROLOGICAL : Intubated, sedated Objective Labs 11/14/24 07:40 11/14/24 13:35 Labs: Laboratory Results - last 24 hr 11/12/24 11/12/24 11/12/24 04:30 14:38 15:00 WBC 16.0 H RBC 4.23 L Hgb 12.7 L Hct 40.9 L MCV 97 MCH 30.0 MCHC 31.1 RDW Std Deviation 51.7 H Plt Count 208 Neut % (Auto) 92 H Lymph % (Auto) 2 L [place] % (Auto) 3 Eos % (Auto) 0 Baso % (Auto) 0 Neut # (Auto) 14.7 H Lymph # (Auto) 0.3 L [place] # (Auto) 0.5 Eos # (Auto) 0.0 Baso # (Auto) 0.0 Immature Gran # (Auto) 0.45 H Absolute Nucleated RBC 0.00 Immature Gran % 3 H Nucleated RBC % 0 PT 14.4 H INR 1.3 APTT 31.3 Puncture Site ABG pH ABG pCO2 ABG pO2 ABG HCO3 ABG O2 Saturation ABG Base Excess VBG pH 7.17 L VBG pCO2 22 L VBG pO2 92 H VBG O2 Sat (Kris) 96 VBG Base Excess -19 L FiO2 Sodium 141 Potassium 6.1 H* Chloride 110 H Carbon Dioxide < 10.0 L* Anion Gap 21 H BUN 117 H* Creatinine 5.6 H* Estim Creat Clear Calc Not Performed. eGFR 10 L* BUN/Creatinine Ratio 21 H Glucose 1213 H* Calculated Osmolality 380 H Lactic Acid 4.8 H* Calcium 7.1 L Corrected Calcium 8.0 L Phosphorus 11.5 H Magnesium 3.5 H Total Bilirubin 0.2 L AST 46 H ALT 27 Alkaline Phosphatase 144 H Lactate Dehydrogenase 305 H Total Creatine Kinase Troponin I 0.045 B-Natriuretic Peptide 54 Total Protein 5.4 L Albumin 2.9 L Globulin 2.5 Albumin/Globulin Ratio 1.2 Lipase 292 H Beta-Hydroxybutyrate/Acetoacetate 3.3 H Procalcitonin 49.39 H Ur Collection Type Clean Catch Urine Color Lt-Yellow Urine Clarity Turbid A Urine pH 7.0 Ur Specific [place] 1.020 Urine Protein 4+ A Urine Glucose (UA) 4+ A Urine Ketones 1+ A Urine Blood 2+ A Urine Nitrite Negative Urine Bilirubin Negative Urine Urobilinogen (Auto) Negative Ur Leukocyte Esterase Positive Urine RBC 16 H Urine WBC 3826 H Ur Squamous Epith Cells 0 Urine Bacteria 1+ A Urine Opiates Screen Urine Fentanyl Screen Ur Barbiturates Screen U Amphetamin/Meth Scrn U Benzodiazepines Scrn U Cocaine Metab Screen U Marijuana (THC) Screen Influenza A (Rapid) Negative Influenza B (Rapid) Negative 11/12/24 11/12/24 11/12/24 17:48 20:28 22:55 WBC RBC Hgb 14.5 Hct 46.2 MCV MCH MCHC RDW Std Deviation Plt Count Neut % (Auto) Lymph % (Auto) [place] % (Auto) Eos % (Auto) Baso % (Auto) Neut # (Auto) Lymph # (Auto) [place] # (Auto) Eos # (Auto) Baso # (Auto) Immature Gran # (Auto) Absolute Nucleated RBC Immature Gran % Nucleated RBC % PT INR APTT Puncture Site Right Brachial ABG pH 7.19 L* ABG pCO2 35 ABG pO2 471 H ABG HCO3 14 L ABG O2 Saturation 100 H ABG Base Excess -14 L VBG pH VBG pCO2 VBG pO2 VBG O2 Sat (Kris) VBG Base Excess FiO2 100 Sodium 141 Potassium 6.3 H* Chloride 108 H Carbon Dioxide 12.7 L* Anion Gap 20 H BUN 136 H* Creatinine 6.0 H* Estim Creat Clear Calc 10.8 L eGFR 9 L* BUN/Creatinine Ratio 23 H Glucose 1121 H* D Calculated Osmolality 382 H Lactic Acid 4.2 H* Calcium 8.3 Corrected Calcium 8.7 Phosphorus 10.4 H Magnesium Total Bilirubin AST ALT Alkaline Phosphatase Lactate Dehydrogenase Total Creatine Kinase 5020 H Troponin I B-Natriuretic Peptide Total Protein Albumin 3.5 D Globulin Albumin/Globulin Ratio Lipase Beta-Hydroxybutyrate/Acetoacetate Procalcitonin Ur Collection Type Urine Color Urine Clarity Urine pH Ur Specific [place] Urine Protein Urine Glucose (UA) Urine Ketones Urine Blood Urine Nitrite Urine Bilirubin Urine Urobilinogen (Auto) Ur Leukocyte Esterase Urine RBC Urine WBC Ur Squamous Epith Cells Urine Bacteria Urine Opiates Screen Negative Urine Fentanyl Screen Negative Ur Barbiturates Screen Negative U Amphetamin/Meth Scrn Positive A U Benzodiazepines Scrn Negative U Cocaine Metab Screen Negative U Marijuana (THC) Screen Negative Influenza A (Rapid) Influenza B (Rapid) 11/12/24 11/13/24 11/13/24 22:58 01:40 01:43 WBC RBC Hgb Hct MCV MCH MCHC RDW Std Deviation Plt Count Neut % (Auto) Lymph % (Auto) [place] % (Auto) Eos % (Auto) Baso % (Auto) Neut # (Auto) Lymph # (Auto) [place] # (Auto) Eos # (Auto) Baso # (Auto) Immature Gran # (Auto) Absolute Nucleated RBC Immature Gran % Nucleated RBC % PT INR APTT Puncture Site Right Brachial ABG pH 7.30 L D ABG pCO2 115 H* D ABG pO2 23 L* D ABG HCO3 57 H ABG O2 Saturation 38 L ABG Base Excess 26 H VBG pH VBG pCO2 VBG pO2 VBG O2 Sat (Kris) VBG Base Excess FiO2 55 Sodium 147 H 149 H Potassium 6.9 H* D 6.5 H* Chloride 112 H 109 H Carbon Dioxide 12.7 L* 18.7 L Anion Gap 22 H 21 H BUN 135 H* 135 H* Creatinine 5.8 H* 5.7 H* Estim Creat Clear Calc 11.1 L 11.3 L eGFR 9 L* 10 L* BUN/Creatinine Ratio 23 H 24 H Glucose 715 H* D 769 H* D Calculated Osmolality 370 H 376 H Lactic Acid 5.8 H* Calcium 8.5 8.6 Corrected Calcium 9.1 9.5 Phosphorus 9.3 H 9.0 H Magnesium 3.4 H 3.4 H Total Bilirubin AST ALT Alkaline Phosphatase Lactate Dehydrogenase Total Creatine Kinase Troponin I B-Natriuretic Peptide Total Protein Albumin 3.3 L 2.9 L Globulin Albumin/Globulin Ratio Lipase Beta-Hydroxybutyrate/Acetoacetate Procalcitonin Ur Collection Type Urine Color Urine Clarity Urine pH Ur Specific [place] Urine Protein Urine Glucose (UA) Urine Ketones Urine Blood Urine Nitrite Urine Bilirubin Urine Urobilinogen (Auto) Ur Leukocyte Esterase Urine RBC Urine WBC Ur Squamous Epith Cells Urine Bacteria Urine Opiates Screen Urine Fentanyl Screen Ur Barbiturates Screen U Amphetamin/Meth Scrn U Benzodiazepines Scrn U Cocaine Metab Screen U Marijuana (THC) Screen Influenza A (Rapid) Influenza B (Rapid) 11/13/24 11/13/24 11/13/24 03:18 05:20 09:25 WBC 10.1 D RBC 4.49 L Hgb 13.5 Hct 40.4 L MCV 90 MCH 30.1 MCHC 33.4 RDW Std Deviation 48.2 H Plt Count 145 D Neut % (Auto) 94 H Lymph % (Auto) 3 L [place] % (Auto) 2 Eos % (Auto) 1 Baso % (Auto) 0 Neut # (Auto) 9.5 H Lymph # (Auto) 0.3 L [place] # (Auto) 0.2 Eos # (Auto) 0.1 Baso # (Auto) 0.0 Immature Gran # (Auto) 0.04 H Absolute Nucleated RBC 0.00 Immature Gran % 0 Nucleated RBC % 0 PT INR APTT Puncture Site Right Brachial ABG pH 7.33 L ABG pCO2 32 D ABG pO2 202 H D ABG HCO3 17 L ABG O2 Saturation 100 H ABG Base Excess -8 L VBG pH VBG pCO2 VBG pO2 VBG O2 Sat (Kris) VBG Base Excess FiO2 55 Sodium 149 H 145 Potassium 5.7 H D 4.9 D Chloride 114 H 108 H Carbon Dioxide 17.0 L 22.5 Anion Gap 18 H 15 BUN 126 H* 75 H Creatinine 5.5 H* 3.6 H D Estim Creat Clear Calc 11.7 L 14.2 L eGFR 10 L* 17 L BUN/Creatinine Ratio 23 H 21 H Glucose 354 H D 120 H D Calculated Osmolality 350 H 311 H Lactic Acid 5.6 H* Calcium 7.5 L 7.6 L Corrected Calcium 8.4 L 8.0 L Phosphorus 6.3 H 3.6 Magnesium 2.7 H 2.2 Total Bilirubin AST ALT Alkaline Phosphatase Lactate Dehydrogenase Total Creatine Kinase 3328 H D Troponin I B-Natriuretic Peptide Total Protein Albumin 2.9 L 3.5 D Globulin Albumin/Globulin Ratio Lipase Beta-Hydroxybutyrate/Acetoacetate Procalcitonin Ur Collection Type Urine Color Urine Clarity Urine pH Ur Specific [place] Urine Protein Urine Glucose (UA) Urine Ketones Urine Blood Urine Nitrite Urine Bilirubin Urine Urobilinogen (Auto) Ur Leukocyte Esterase Urine RBC Urine WBC Ur Squamous Epith Cells Urine Bacteria Urine Opiates Screen Urine Fentanyl Screen Ur Barbiturates Screen U Amphetamin/Meth Scrn U Benzodiazepines Scrn U Cocaine Metab Screen U Marijuana (THC) Screen Influenza A (Rapid) Influenza B (Rapid) ABG Interpretation ABG results: 11/12/24 11/12/24 11/13/24 15:00 22:55 01:40 ABG pH 7.19 L* 7.30 L D ABG pCO2 35 115 H* D ABG pO2 471 H 23 L* D ABG HCO3 14 L 57 H ABG O2 Saturation 100 H 38 L ABG Base Excess -14 L 26 H VBG pH 7.17 L VBG pCO2 22 L VBG pO2 92 H VBG Base Excess -19 L 11/13/24 03:18 ABG pH 7.33 L ABG pCO2 32 D ABG pO2 202 H D ABG HCO3 17 L ABG O2 Saturation 100 H ABG Base Excess -8 L VBG pH VBG pCO2 VBG pO2 VBG Base Excess Assessment & Plan Additional Assessment & Plan Additional Plan: Mr. Robertson is a 78-year-old gentleman with multiple medical problems presented with- # ARF secondary to prerenal azotemia with diabetic ketoacidosis and septic shock-needing dialysis #Hyperkalemia #Hyperosmolar hyperchloremic hypernatremia -corrected for blood sugar 1200 is 164 #Hypermagnesemia #Hyperphosphatemia # Anion gap metabolic acidosis-intractable needing dialysis #Lactic acidosis. # Hypoxic respiratory failure # Metabolic encephalopathy Spoke to Dr. Muñoz-will start patient on hypertonic normal saline to Increase osmolality, to avoid overcorrection of hyponatremia. This morning patient received emergency dialysis. Hemodialysis for 2 hours, 2K, ultrafiltration 0 L, Epogen 6000, no heparin ordered. Plan of care discussed with the dialysis nurse. Please see dialysis flowsheet for further details. Plan of care discussed with Dr. Muñoz and ICU team. More than 40 minutes regarding plan of care and disease management. Procedures Arterial Line Size (Gauge): 20
--- NOTE | 2024-11-13 12:21 | PC.SS ---
Update: Patient receiving emergent dialysis today.
[2024-11-13 12:27] LABS: Base Excess -2 (-3-3); HCO3 23 mEq/L (20-26); Inspired Oxygen, FIO2 65 %; O2 Saturation 100 % (91-98); PCO2 37 mmHg (32.0-48.0); PO2 227 mmHg (83-108)
[2024-11-13 12:29] LABS: Allen Test Not Performed; Puncture Site Left Radial
[2024-11-13] MEDS: SODIUM CHLORIDE 3%(Hypertonic) 500 ML in PRE-MIXED 1 BAG 30 ML IV (12:29)
[2024-11-13] MEDS: SODIUM CHLORIDE 3%(Hypertonic) 100 ML in PRE-MIXED 1 BAG 600 ML IV ×2 (12:29→17:30)
--- NOTE | 2024-11-13 12:29 | PC.SS ---
Update: Patient is intubated/sedated. NG tube in place. Patient on pressor support.
[2024-11-13 12:46] LABS: Alanine Aminotransferase 42 U/L (10-49); Albumin, Serum 3.4 gm/dL (3.4-4.8); Albumin/Globulin Ratio 1.5 (1.2-2.2); Alkaline Phosphatase 125 U/L (46-116); Anion Gap 13 (7-16); Aspartate Amino Transferase 71 U/L (0-34); BUN/Creatinine Ratio 21 Ratio (12-20); Bilirubin,Total 0.5 mg/dL (0.3-1.2); Blood Urea Nitrogen 84 mg/dL (9-23); Calcium 7.4 mg/dL (8.3-10.6); Calcium (Corrected) 7.9 mg/dL (8.5-10.1); Chloride 108 mMol/L (98-107); Estimated Creatinine Clearance 12.8 mL/min (>60); Globulin 2.2 gm/dL (2.3-3.5); Glucose 196 mg/dL (74-106); Osmolality,Calculated 315 (275-295); Potassium 5.5 mMol/L (3.4-5.1); Sodium 143 mMol/L (136-145); Total Protein 5.6 gm/dL (5.7-8.2); eGFR 15 See Note
--- NOTE | 2024-11-13 12:51 | PC.SS ---
RESIDENTIAL [employer]ST [employer] TECHNICIAN attempted phone contact with patient's spouse, Omero Robertson . Number is not in service at this time.
[2024-11-13] MEDS: fentaNYL 2,500 MCG/250 ML BAG 2,500 MCG/250 ML BAG 17.5 MCG IV (13:18)
[2024-11-13 13:53] LABS: Albumin, Serum 3.2 gm/dL (3.4-4.8); Anion Gap 14 (7-16); BUN/Creatinine Ratio 20 Ratio (12-20); Blood Urea Nitrogen 78 mg/dL (9-23); Calcium 7.1 mg/dL (8.3-10.6); Calcium (Corrected) 7.7 mg/dL (8.5-10.1); Carbon Dioxide 20.6 mMol/L (20.0-31.0); Chloride 110 mMol/L (98-107); Estimated Creatinine Clearance 12.8 mL/min (>60); Glucose 208 mg/dL (74-106); Magnesium 2.2 mg/dL (1.6-2.6); Osmolality,Calculated 318 (275-295); Phosphorous 4.5 mg/dL (2.4-5.1); Potassium 5.6 mMol/L (3.4-5.1); Sodium 145 mMol/L (136-145); eGFR 15 See Note
[2024-11-13] MEDS: ACETAMINOPHEN SUPP 650 MG SUPP PR (14:10)
--- NOTE | 2024-11-13 14:37 | PC.DIETICIAN ---
Nutrition prescription If vasopressor needs decrease, consider: Nepro at 10 ml/hr via NG tube by pump. Once more stable: Advance 10 ml every 8 hrs to goal rate of 40 ml/hr x 24 hrs. If no IV fluids, water flushes of 25 ml/hr (or per MD).
--- NOTE | 2024-11-13 15:02 | PD.RESPRO ---
Documentation for date of: 11/13/24 Subjective Subjective Interval history: 11/13/2024; patient was seen and examined by bedside, overnight patient underwent HD dialysis catheter placement and arterial line placement, U-Tox was noted for methamphetamine, head CT was negative for acute bleed/midline shift, C/A/P CT was only noted for bibasilar pneumonia along with cholelithiasis and rectal wall thickening given concern for proctitis. Remains sedated and intubated, continues to require high dose of Levophed along with Vasopressin to maintain MAP goal, continues to be on Zosyn, Doxycycline was added for MRSA concern. In A.M patient's corrected Na rapidly corrected to 165 in light of rapid glucose correction, Insulin drip was held and patient was given 1 amp of D50 to increase BG from 354 and lactated ringer was discontinued along. Patient's BUN in AM was 126, nephrology recommended starting patient on hypertonic saline to reverse rapid Sodium correction, patient was given a 100cc bolus of NaCl 3% and was started on NaCl 3% drip. In light of rapid sodium correction there was concern for increased ICP/cerebral edema, Optic nerve US was done on patient's right eye, diameter was noted to be 8.5mm. Patient's condition remains extremely critical despite multiple attempts to contact patient's /any family member by ICU staff and delinquency prevention social worker were unsuccessful, [facility] were contacted to attempt reaching his at address on record. Exam Vital Signs Temp Pulse Resp BP Pulse Ox O2 Del Method O2 Flow Rate 101.5 F H 88 24 H 148/50 H 93 L Mechanical Ventilation 15 11/13/24 14:10 11/13/24 14:50 11/13/24 09:17 11/13/24 14:50 11/13/24 14:50 11/12/24 21:19 11/12/24 15:25 FiO2 65 11/13/24 14:50 Narrative Exam GEN: Critically ill, acutely distressed and dishelved, sedated and intubated. Neuro: Deferred due to sedation. HEENT: NCAT, trachea midline, moist mucous membranes, ET tube, PO tube noted. CVS: RRR, S1S2 present, no M/R/G. No JVD. Resp: Increased RR, CTA B/L. No rhonchi, rales, crackles or wheezing, ecchymosis on both lower lateral ends of rib cage. ABD: Soft, no grimace to palpation, bowel sounds present in all 4 quadrants. MSK: Muscle wasting noted on BLE. BUE purpulish discoloration noted along with cold extremities, no edema or rash. Objective Labs 11/13/24 05:20 11/13/24 14:32 Labs: Laboratory Results - last 24 hr 11/12/24 11/12/24 11/12/24 04:30 14:38 15:00 WBC 16.0 H RBC 4.23 L Hgb 12.7 L Hct 40.9 L MCV 97 MCH 30.0 MCHC 31.1 RDW Std Deviation 51.7 H Plt Count 208 Neut % (Auto) 92 H Lymph % (Auto) 2 L [place] % (Auto) 3 Eos % (Auto) 0 Baso % (Auto) 0 Neut # (Auto) 14.7 H Lymph # (Auto) 0.3 L [place] # (Auto) 0.5 Eos # (Auto) 0.0 Baso # (Auto) 0.0 Immature Gran # (Auto) 0.45 H Absolute Nucleated RBC 0.00 Immature Gran % 3 H Nucleated RBC % 0 PT 14.4 H INR 1.3 APTT 31.3 Puncture Site ABG pH ABG pCO2 ABG pO2 ABG HCO3 ABG O2 Saturation ABG Base Excess VBG pH 7.17 L VBG pCO2 22 L VBG pO2 92 H VBG O2 Sat (Kris) 96 VBG Base Excess -19 L FiO2 Sodium 141 Potassium 6.1 H* Chloride 110 H Carbon Dioxide < 10.0 L* Anion Gap 21 H BUN 117 H* Creatinine 5.6 H* Estim Creat Clear Calc Not Performed. eGFR 10 L* BUN/Creatinine Ratio 21 H Glucose 1213 H* Calculated Osmolality 380 H Lactic Acid 4.8 H* Calcium 7.1 L Corrected Calcium 8.0 L Phosphorus 11.5 H Magnesium 3.5 H Total Bilirubin 0.2 L AST 46 H ALT 27 Alkaline Phosphatase 144 H Lactate Dehydrogenase 305 H Total Creatine Kinase Troponin I 0.045 B-Natriuretic Peptide 54 Total Protein 5.4 L Albumin 2.9 L Globulin 2.5 Albumin/Globulin Ratio 1.2 Lipase 292 H Beta-Hydroxybutyrate/Acetoacetate 3.3 H Procalcitonin 49.39 H Ur Collection Type Clean Catch Urine Color Lt-Yellow Urine Clarity Turbid A Urine pH 7.0 Ur Specific Dexter 1.020 Urine Protein 4+ A Urine Glucose (UA) 4+ A Urine Ketones 1+ A Urine Blood 2+ A Urine Nitrite Negative Urine Bilirubin Negative Urine Urobilinogen (Auto) Negative Ur Leukocyte Esterase Positive Urine RBC 16 H Urine WBC 3826 H Ur Squamous Epith Cells 0 Urine Bacteria 1+ A Urine Opiates Screen Urine Fentanyl Screen Ur Barbiturates Screen U Amphetamin/Meth Scrn U Benzodiazepines Scrn U Cocaine Metab Screen U Marijuana (THC) Screen Influenza A (Rapid) Negative Influenza B (Rapid) Negative 11/12/24 11/12/24 11/12/24 17:48 20:28 22:55 WBC RBC Hgb 14.5 Hct 46.2 MCV MCH MCHC RDW Std Deviation Plt Count Neut % (Auto) Lymph % (Auto) [place] % (Auto) Eos % (Auto) Baso % (Auto) Neut # (Auto) Lymph # (Auto) [place] # (Auto) Eos # (Auto) Baso # (Auto) Immature Gran # (Auto) Absolute Nucleated RBC Immature Gran % Nucleated RBC % PT INR APTT Puncture Site Right Brachial ABG pH 7.19 L* ABG pCO2 35 ABG pO2 471 H ABG HCO3 14 L ABG O2 Saturation 100 H ABG Base Excess -14 L VBG pH VBG pCO2 VBG pO2 VBG O2 Sat (Kris) VBG Base Excess FiO2 100 Sodium 141 Potassium 6.3 H* Chloride 108 H Carbon Dioxide 12.7 L* Anion Gap 20 H BUN 136 H* Creatinine 6.0 H* Estim Creat Clear Calc 10.8 L eGFR 9 L* BUN/Creatinine Ratio 23 H Glucose 1121 H* D Calculated Osmolality 382 H Lactic Acid 4.2 H* Calcium 8.3 Corrected Calcium 8.7 Phosphorus 10.4 H Magnesium Total Bilirubin AST ALT Alkaline Phosphatase Lactate Dehydrogenase Total Creatine Kinase 5020 H Troponin I B-Natriuretic Peptide Total Protein Albumin 3.5 D Globulin Albumin/Globulin Ratio Lipase Beta-Hydroxybutyrate/Acetoacetate Procalcitonin Ur Collection Type Urine Color Urine Clarity Urine pH Ur Specific Dexter Urine Protein Urine Glucose (UA) Urine Ketones Urine Blood Urine Nitrite Urine Bilirubin Urine Urobilinogen (Auto) Ur Leukocyte Esterase Urine RBC Urine WBC Ur Squamous Epith Cells Urine Bacteria Urine Opiates Screen Negative Urine Fentanyl Screen Negative Ur Barbiturates Screen Negative U Amphetamin/Meth Scrn Positive A U Benzodiazepines Scrn Negative U Cocaine Metab Screen Negative U Marijuana (THC) Screen Negative Influenza A (Rapid) Influenza B (Rapid) 11/12/24 11/13/24 11/13/24 22:58 01:40 01:43 WBC RBC Hgb Hct MCV MCH MCHC RDW Std Deviation Plt Count Neut % (Auto) Lymph % (Auto) [place] % (Auto) Eos % (Auto) Baso % (Auto) Neut # (Auto) Lymph # (Auto) [place] # (Auto) Eos # (Auto) Baso # (Auto) Immature Gran # (Auto) Absolute Nucleated RBC Immature Gran % Nucleated RBC % PT INR APTT Puncture Site Right Brachial ABG pH 7.30 L D ABG pCO2 115 H* D ABG pO2 23 L* D ABG HCO3 57 H ABG O2 Saturation 38 L ABG Base Excess 26 H VBG pH VBG pCO2 VBG pO2 VBG O2 Sat (Kris) VBG Base Excess FiO2 55 Sodium 147 H 149 H Potassium 6.9 H* D 6.5 H* Chloride 112 H 109 H Carbon Dioxide 12.7 L* 18.7 L Anion Gap 22 H 21 H BUN 135 H* 135 H* Creatinine 5.8 H* 5.7 H* Estim Creat Clear Calc 11.1 L 11.3 L eGFR 9 L* 10 L* BUN/Creatinine Ratio 23 H 24 H Glucose 715 H* D 769 H* D Calculated Osmolality 370 H 376 H Lactic Acid 5.8 H* Calcium 8.5 8.6 Corrected Calcium 9.1 9.5 Phosphorus 9.3 H 9.0 H Magnesium 3.4 H 3.4 H Total Bilirubin AST ALT Alkaline Phosphatase Lactate Dehydrogenase Total Creatine Kinase Troponin I B-Natriuretic Peptide Total Protein Albumin 3.3 L 2.9 L Globulin Albumin/Globulin Ratio Lipase Beta-Hydroxybutyrate/Acetoacetate Procalcitonin Ur Collection Type Urine Color Urine Clarity Urine pH Ur Specific Dex[place] Urine Protein Urine Glucose (UA) Urine Ketones Urine Blood Urine Nitrite Urine Bilirubin Urine Urobilinogen (Auto) Ur Leukocyte Esterase Urine RBC Urine WBC Ur Squamous Epith Cells Urine Bacteria Urine Opiates Screen Urine Fentanyl Screen Ur Barbiturates Screen U Amphetamin/Meth Scrn U Benzodiazepines Scrn U Cocaine Metab Screen U Marijuana (THC) Screen Influenza A (Rapid) Influenza B (Rapid) 11/13/24 11/13/24 11/13/24 03:18 05:20 09:25 WBC 10.1 D RBC 4.49 L Hgb 13.5 Hct 40.4 L MCV 90 MCH 30.1 MCHC 33.4 RDW Std Deviation 48.2 H Plt Count 145 D Neut % (Auto) 94 H Lymph % (Auto) 3 L [place] % (Auto) 2 Eos % (Auto) 1 Baso % (Auto) 0 Neut # (Auto) 9.5 H Lymph # (Auto) 0.3 L [place] # (Auto) 0.2 Eos # (Auto) 0.1 Baso # (Auto) 0.0 Immature Gran # (Auto) 0.04 H Absolute Nucleated RBC 0.00 Immature Gran % 0 Nucleated RBC % 0 PT INR APTT Puncture Site Right Brachial ABG pH 7.33 L ABG pCO2 32 D ABG pO2 202 H D ABG HCO3 17 L ABG O2 Saturation 100 H ABG Base Excess -8 L VBG pH VBG pCO2 VBG pO2 VBG O2 Sat (Kris) VBG Base Excess FiO2 55 Sodium 149 H 145 Potassium 5.7 H D 4.9 D Chloride 114 H 108 H Carbon Dioxide 17.0 L 22.5 Anion Gap 18 H 15 BUN 126 H* 75 H Creatinine 5.5 H* 3.6 H D Estim Creat Clear Calc 11.7 L 14.2 L eGFR 10 L* 17 L BUN/Creatinine Ratio 23 H 21 H Glucose 354 H D 120 H D Calculated Osmolality 350 H 311 H Lactic Acid 5.6 H* Calcium 7.5 L 7.6 L Corrected Calcium 8.4 L 8.0 L Phosphorus 6.3 H 3.6 Magnesium 2.7 H 2.2 Total Bilirubin AST ALT Alkaline Phosphatase Lactate Dehydrogenase Total Creatine Kinase 3328 H D Troponin I B-Natriuretic Peptide Total Protein Albumin 2.9 L 3.5 D Globulin Albumin/Globulin Ratio Lipase Beta-Hydroxybutyrate/Acetoacetate Procalcitonin Ur Collection Type Urine Color Urine Clarity Urine pH Ur Specific Dexter Urine Protein Urine Glucose (UA) Urine Ketones Urine Blood Urine Nitrite Urine Bilirubin Urine Urobilinogen (Auto) Ur Leukocyte Esterase Urine RBC Urine WBC Ur Squamous Epith Cells Urine Bacteria Urine Opiates Screen Urine Fentanyl Screen Ur Barbiturates Screen U Amphetamin/Meth Scrn U Benzodiazepines Scrn U Cocaine Metab Screen U Marijuana (THC) Screen Influenza A (Rapid) Influenza B (Rapid) 11/13/24 11/13/24 11/13/24 12:05 12:06 13:20 WBC RBC Hgb Hct MCV MCH MCHC RDW Std Deviation Plt Count Neut % (Auto) Lymph % (Auto) [place] % (Auto) Eos % (Auto) Baso % (Auto) Neut # (Auto) Lymph # (Auto) [place] # (Auto) Eos # (Auto) Baso # (Auto) Immature Gran # (Auto) Absolute Nucleated RBC Immature Gran % Nucleated RBC % PT INR APTT Puncture Site Left Radial ABG pH 7.40 ABG pCO2 37 ABG pO2 227 H D ABG HCO3 23 ABG O2 Saturation 100 H ABG Base Excess -2 VBG pH VBG pCO2 VBG pO2 VBG O2 Sat (Kris) VBG Base Excess FiO2 65 Sodium 143 145 Potassium 5.5 H D 5.6 H Chloride 108 H 110 H Carbon Dioxide 22.0 20.6 Anion Gap 13 14 BUN 84 H 78 H Creatinine 4.0 H 4.0 H Estim Creat Clear Calc 12.8 L 12.8 L eGFR 15 L 15 L BUN/Creatinine Ratio 21 H 20 Glucose 196 H D 208 H Calculated Osmolality 315 H 318 H Lactic Acid Calcium 7.4 L 7.1 L Corrected Calcium 7.9 L 7.7 L Phosphorus 4.5 Magnesium 2.2 Total Bilirubin 0.5 AST 71 H ALT 42 Alkaline Phosphatase 125 H Lactate Dehydrogenase Total Creatine Kinase Troponin I B-Natriuretic Peptide Total Protein 5.6 L Albumin 3.4 3.2 L Globulin 2.2 L Albumin/Globulin Ratio 1.5 Lipase Beta-Hydroxybutyrate/Acetoacetate Procalcitonin Ur Collection Type Urine Color Urine Clarity Urine pH Ur Specific Dexter Urine Protein Urine Glucose (UA) Urine Ketones Urine Blood Urine Nitrite Urine Bilirubin Urine Urobilinogen (Auto) Ur Leukocyte Esterase Urine RBC Urine WBC Ur Squamous Epith Cells Urine Bacteria Urine Opiates Screen Urine Fentanyl Screen Ur Barbiturates Screen U Amphetamin/Meth Scrn U Benzodiazepines Scrn U Cocaine Metab Screen U Marijuana (THC) Screen Influenza A (Rapid) Influenza B (Rapid) ABG Interpretation ABG results: 11/12/24 11/12/24 11/13/24 15:00 22:55 01:40 ABG pH 7.19 L* 7.30 L D ABG pCO2 35 115 H* D ABG pO2 471 H 23 L* D ABG HCO3 14 L 57 H ABG O2 Saturation 100 H 38 L ABG Base Excess -14 L 26 H VBG pH 7.17 L VBG pCO2 22 L VBG pO2 92 H VBG Base Excess -19 L 11/13/24 11/13/24 03:18 12:06 ABG pH 7.33 L 7.40 ABG pCO2 32 D 37 ABG pO2 202 H D 227 H D ABG HCO3 17 L 23 ABG O2 Saturation 100 H 100 H ABG Base Excess -8 L -2 VBG pH VBG pCO2 VBG pO2 VBG Base Excess Quality Measures Quality Measures VTE prophylaxis Advance care planning discussed with:: other Assessment & Plan Assessment Current Active Medications: Generic Name Dose Route Start Last Admin Trade Name Freq PRN Reason Stop Dose Admin Acetaminophen 650 mg 11/13/24 13:41 11/13/24 14:10 Acetaminophen Supp 650 Mg Supp ND 12/13/24 13:40 650 mg Q6HR PRN Administration Pain Or Fever > 100.4 Dextrose 25 ml 11/12/24 17:17 Dextrose 50%-Water Inj 50 Ml Syringe IV [id number] PRN Blood Sugar - Low Heparin Sodium (Porcine) 2,500 unit 11/13/24 06:00 11/13/24 06:30 Heparin Sod Inj 1000 Unit/Ml Vial 10 Ml [facility] 11/27/24 05:59 2,500 unit PRN PRN Administration CLOTTING PREVENTION Heparin Sodium (Porcine) 2,500 unit 11/13/24 09:20 11/13/24 09:25 Heparin Sod Inj 1000 Unit/Ml Vial 10 Ml [facility] 11/27/24 09:19 2,500 unit PRN PRN Administration DIALYSIS Potassium Chloride 10 meq in 100 mls @ 100 mls/hr 11/12/24 17:17 Kcl Ivpb IV 12/12/24 17:16 .Q1H PRN IF POTASSIUM LESS THAN 3.3 Magnesium Sulfate 2 gm in 50 mls @ 25 mls/hr 11/12/24 17:17 Magnesium Sulfate Ivpb IV 12/12/24 17:16 .Q2H PRN PER DKA PROTOCOL Dextrose/Lactated Ringer's 1,000 mls @ 250 mls/hr 11/12/24 17:17 D5-Lr IV 12/12/24 17:16 .Q4H PRN PER PROTOCOL Potassium Chloride 20 meq/ 1,010 mls @ 250 mls/hr 11/12/24 17:17 Lactated Ringer's IV 12/12/24 17:16 .Q4H3M PRN K LEVEL 3.3 TO 5.3mM/L Potassium Chloride 40 meq/ 1,020 mls @ 250 mls/hr 11/12/24 17:17 Lactated Ringer's IV 12/12/24 17:16 .Q4H5M PRN K LEVEL < 3.3 mM/L Potassium Chloride 40 meq/ 1,020 mls @ 250 mls/hr 11/12/24 17:17 Dextrose/Lactated Ringer's IV 12/12/24 17:16 .Q4H5M PRN K LEVEL < 3.3mM/L Potassium Cl/Dextrose/Lact Ringer's 20 meq in 1,000 mls @ 250 mls/hr 11/12/24 17:17 Kcl 20 Meq/L In D5-Lr IV 12/12/24 17:16 .Q4H PRN K LEVEL 3.3 TO 5.3 mM/L Potassium Chloride 10 meq in 100 mls @ 50 mls/hr 11/12/24 17:17 Kcl Ivpb IV 12/12/24 17:16 PRN PRN K LEVEL 3.3 to 5.3 & BG > 200 Potassium Phosphate 15 mmol in 250 mls @ 62.5 mls/hr 11/12/24 17:17 Pot Phos 15 Mmol In Ns 250 Ml IV 12/12/24 17:16 PRN PRN Phosphate <= 1mg/dL Sodium Phosphate 15 mmol/ 255 mls @ 62.5 mls/hr 11/12/24 17:17 Sodium Chloride IV 12/12/24 17:16 .Q4H5M PRN Phosphate <= 1mg/dL and K> than 5.3 Potassium Chloride 100 mls @ 100 mls/hr 11/12/24 17:17 Kcl Ivpb IV 12/12/24 17:16 .Q1H PRN IF POTASSIUM LESS THAN 3.3 Propofol 1,000 mg in 100 mls @ 2.177 mls/hr 11/12/24 18:01 11/13/24 14:00 Diprivan Ivpb IV 12/12/24 18:00 Infused .Q24H PRN Titration PER PROTOCOL Protocol 5 MCG/KG/MIN Fentanyl Citrate 2,500 mcg in 250 mls @ 2.5 mls/hr 11/12/24 18:13 11/13/24 14:00 Sublimaze Inj 2,500 Mcg/250 Ml Bag IV 11/17/24 18:12 175 mcg/hr .Q24H PRN 17.5 mls/hr PER PROTOCOL Titration Protocol 25 MCG/HR Insulin Human Regular 100 unit in 100 mls @ 7.258 mls/hr 11/12/24 19:36 11/13/24 09:00 Myxredlin IV 12/12/24 19:35 0 unit/kg/hr .H58M34M PRN 0 mls/hr PER PROTOCOL Titration Protocol 0.1 UNIT/KG/HR Vasopressin/Sodium Chloride 20 unit in 100 mls @ 9 mls/hr 11/12/24 22:30 11/13/24 08:03 Vasostrict/Ns Ivpb IV 12/12/24 22:29 0.03 unit/min .Q11H7M PRN 9 mls/hr PER PROTOCOL Administration Protocol 0.03 UNIT/MIN Norepinephrine Bitartrate 16 mg in 250 mls @ 3.402 mls/hr 11/13/24 01:47 11/13/24 14:45 Levophed In Ns 16mg/250ml IV 12/13/24 01:46 0.62 mcg/kg/min .Q24H PRN 42.184 mls/hr PER PROTOCOL Titration Protocol 0.05 MCG/KG/MIN Lactated Ringer's 1,000 mls @ 100 mls/hr 11/13/24 04:04 11/13/24 09:00 Lactated Ringers IV 11/13/24 17:16 0 mls/hr .Q10H PRN Infusion PER PROTOCOL Sodium Bicarbonate 88.23 meq/ 588.23 mls @ 150 mls/hr 11/13/24 04:04 11/13/24 12:34 Dextrose IV 12/13/24 04:03 Not Given .Q3H56M MARIE Albumin Human 25 gm in 100 mls @ 100 mls/min 11/13/24 04:54 11/13/24 06:52 Albuminar-25 Ivpb IV 100 mls/min PRN PRN Administration DIALYSIS Sodium Chloride 500 ml/ IV 500 mls @ 30 mls/hr 11/13/24 12:04 11/13/24 12:29 Miscellaneous Supplies IV 11/14/24 04:43 30 mls/hr X1 ONE Administration Piperacillin Sod/Tazobactam 50 mls @ 12.5 mls/hr 11/13/24 21:00 Sod 3.375 gm/ Sodium Chloride IV 11/19/24 22:29 Q12HR MARIE Doxycycline Hyclate 100 mg/ 100 mls @ 100 mls/hr 11/13/24 15:00 Sodium Chloride IV 11/20/24 14:59 BID MARIE Sodium Bicarbonate 50 ml 11/12/24 17:17 11/12/24 23:26 Sodium Bicarb Inj 8.4% Syr 50 Ml Syringe IV 12/12/24 17:16 50 ml PRN PRN Administration For ph <= to 7.0 Plan 78 year old male patient with PMHx of CABG, CVA, HTN, HLD, and meth/fentanyl use BIBA after he was found at home non-responsive at home, no further hx obtained at time of arrival, patient was admitted to ICU for further evaluation and care of septic shock/ DKA with severe metabolic derangements, and NEELAM. CT imaging of head, chest/abdomen/pelvis were pending. 11/13/2024; patient was seen and examined by bedside, overnight patient underwent HD dialysis catheter placement and arterial line placement, U-Tox was noted for methamphetamine, head CT was negative for acute bleed/midline shift, C/A/P CT was only noted for bibasilar pneumonia along with cholelithiasis and rectal wall thickening given concern for proctitis. Remains sedated and intubated, continues to require high dose of Levophed along with Vasopressin to maintain MAP goal, continues to be on Zosyn, Doxycycline was added for MRSA concern. In A.M patient's corrected Na rapidly corrected to 165 in light of rapid glucose correction, Insulin drip was held and patient was given 1 amp of D50 to increase BG from 354 and lactated ringer was discontinued along. Patient's BUN in AM was 126, nephrology recommended starting patient on hypertonic saline to reverse rapid Sodium correction, patient was given a 100cc bolus of NaCl 3% and was started on NaCl 3% drip. In light of rapid sodium correction there was concern for increased ICP/cerebral edema, Optic nerve US was done on patient's right eye, diameter was noted to be 8.5mm. Patient's condition remains extremely critical despite multiple attempts to contact patient's /any family member by ICU staff and delinquency prevention social worker were unsuccessful, [place] [employer] were contacted to attempt reaching his at address on record. [employer] #Acute encephalopathy 2/2 metabolic in setting of DKA/septic shock/ Uremia #Sedation for mechanical ventilation Reasses after correction of DKA and septic shock, and electrolyte derangement. CVS #Septic shock Fluid resuscitated, on levophed. Maintain MAP >65. Zosyn F/U Bcx/Ucx/Sputum Cx Resp #Acute hypoxic respiratory failure 2/2 septic shock and DKA Intubated. F/U ABG F/U Bcx, Ucx, Sputum Cx Adjust vent setting accordingly. Patient started on Zosyn for aspiration PNA coverage along with possible abdomen/UTI infection. De-escalate abx as warranted. Renal #ARF 2/2 DKA and septic shock #Hyperkalemia #Hyepr osmolar hyperchloremic hypernatremia #Hypermagnesemia #Hyperphsphatemia #AGMA #Uremia #Lactic acidosis. Corrected Na 167, K 6.3, HCO3 13 -Volume resuscitated, on DKA protocol -Q4hr renal panel. -Max correction 6-8 Meq 24 hrs, .5/hr for serum Na -Replete electrolytes as needed. Patient likely to require HD. Nephrology consulted, recs appreciated. ID #Septic shock 2/2 UTI vs PNA vs Abdominal infect -Fluid resuscitated, on ivf -On Zosyn -F/u Bcx/Ucx/ Sputum Cx Heme #Anemia likely 2/2 CKD vs malnutrition #Leukocytosis 2/2 Pyelonephritis #Thrombocytopenia in setting of severe sepsis 2/2 E. Coli bacteremia/Pylonephritis -DIC possible, but less likely, no evidence of clotting -Suspect improvement as overall condition improves -Hemodynamically stable, no indication to transfuse at the moment. Endo #DKA #AGMA DKA protocol. Slow rate of correction in glucose levels in light of hypernatremia. GI ##Elevated Lipase Pending further imaging. Patient sedated, unable to obtain Hx of pain, nor see it on exam. DVT prophylaxis: Heparin sc Diet: OG tube Ferraro: + Lines: PIV, RIJ CODE STATUS: Full code Reason for hospitalization/disposition: Septic shock/ DKA/ NEELAM Plan of care discussed with attending Dr. Wanda Gaming M.D. PGY-3 Attending Provider Attestation/Addendum Patient seen and examined with above resident, Parish Gaming MD. I agree with the findings, assessment, and plan of care as documented except for any differences below. Patient with evolving septic shock and respiratory failure. Course complicated by worsening renal failure and nonketotic hyperosmolar hyperglycemic state. Patient remains acutely encephalopathic and now transition to appropriate sedation to ensure adequate ventilator synchrony. Patient remains febrile with new department antibiotics with addition of doxycycline for community-acquired MRSA coverage along with atypical coverage as pulmonary this is the most likely source of infection. Patient with significant amphetamine abuse history and low cardiac output state likely with evidence of distal perfusion limited despite adequate pulses. Will use warming blankets to ensure optimization of distal perfusion in bilateral upper and lower extremities. Patient on high-dose vasopressors which we will aggressively wean now that we were able to improve acidosis after transition with adequate fluid resuscitation and performance of emergent hemodialysis secondary to multiple metabolic derangements inclusive of severe metabolic acidosis, rhabdomyolysis, uremia likely associated with encephalopathy, and hyperkalemia. Patient did receive IV insulin bolus overnight which precipitously to drop his glucose and thus IV insulin drip has been discontinued. Osmolarity is at significant drop after glucose correction and hemodialysis despite appropriate use of sodium during HD. We will drive the sodium to further optimize osmolarity to avoid large drop which could precipitate cerebral edema and subsequent development of neurologic damage from over rapid correction of osmolarity and sodium. Bedside ultrasound does show dilation of the optic disc. Patient given bolus of hypertonic saline with drip with goal to reach 155 this afternoon to avoid over 10 to 12 mEq correction sodium even after accounting for pseudohyponatremia in the setting of hyperglycemia which is now resolved. Urea glycosuria likely decreased as no other significant cause for change in osmolarity, though this is not one that is more recently achieved. Patient also remains hypothermic now secondary to fever from prolonged infection, this will be aggressively managed to avoid any subsequent neurologic injury associated with hypermetabolism. Patient remains off tube feeds but on appropriate prophylaxis otherwise. Patient's family has not been at bedside and we have attempted multiple times including with support from case management to reach the next of kin. Total critical care time: I personally spent 40 minutes for review of physiologic parameters, directing plan of care for today, and coordination of care with other subspecialties. This is exclusive of time spent teaching housestaff or performing any separate billable procedures. Patient continues require critical care services secondary to significant acute metabolic encephalopathy and respiratory failure requiring mechanical ventilation, course complicated by acute renal failure with multiple metabolic derangements requiring emergent hemodialysis and continued close monitoring for correction of serum osmolality putting him at risk for increased morbidity and mortality.
[2024-11-13 15:08] LABS: Sodium 145 mMol/L (136-145)
--- NOTE | 2024-11-13 15:08 | ECHO_ITS ---
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 16 - 28 cm?/m? Ascending Aorta Diameter 3.1 cm M-MODE Aortic Root Diameter MM 3.2 cm LA Systolic Diameter MM 3.4 cm LA Ao Ratio MM 1.1 AV Cusp Separation MM 2.2 cm DOPPLER AV Peak Velocity 112.0 cm/s AV Peak Gradient 5.0 mmHg AV Mean Gradient 3.0 mmHg AV Velocity Time Integral 14.7 cm LVOT Peak Velocity 100.0 cm/s LVOT Peak Gradient 4.0 mmHg LVOT Velocity Time Integral 14.2 cm LVOT Cardiac Index 1780.3 cm?/min?m? AV Area Cont Eq vti 2.7 cm? AV Area Cont Eq pk 2.5 cm? MV Peak Velocity 106.0 cm/s MV Peak Gradient 4.5 mmHg MV Mean Velocity 51.4 cm/s MV Mean Gradient 1.0 mmHg MV Area PHT 2.9 cm? Mitral E Point Velocity 45.6 cm/s Mitral A Point Velocity 99.4 cm/s Mitral E to A Ratio 0.5 LV E' Lateral Velocity 7.6 cm/s Mitral E to LV E' Lateral Ratio 6.0 LV E' Septal Velocity 6.2 cm/s Mitral E to LV E' Septal Ratio 7.4 FINDINGS Left Ventricle Normal left ventricular size, systolic function with no obvious regional wall motion abnormalities. Mild LVH. The ejection fraction is visually estimated at 50-55%. Right Ventricle The right ventricle is normal in size and systolic function. Left Atrium The left atrium is normal by two-dimensional, color flow and Doppler imaging with no structural abnormalities, no thrombus formation present. Right Atrium The right atrium is normal by two-dimensional imaging, color flow and Doppler imaging with no struct ural abnormalities, no thrombus formation present. Atrial Septum The interatrial septum appears normal with no evidence of a shunt. Aorta The aorta is normal by two-dimensional, color flow and Doppler interrogation. Mitral Valve The mitral valve is normal by two-dimensional, color flow and Doppler interrogation. There is trace mitral valve regurgitation. Aortic Valve The aortic valve is trileaflet and normal by two-dimensional, color flow and Doppler interrogation. There is trace aortic valve regurgitation. Tricuspid Valve The tricuspid valve is normal by two-dimensional, color flow and Doppler interrogation. There is no significant tricuspid valve regurgitation. Pulmonic Valve There is no significant pulmonic valve regurgitation. Vessels The pulmonary artery appears normal. The inferior vena cava pulmonary and hepatic veins appear [place] l. Pericardium The pericardium is normal by two-dimensional imaging. There is no significant pericardial effusion. CONCLUSIONS The transthoracic study is normal by two-dimensional, color flow imaging and Doppler interrogation. Normal LV size and function. Mild LVH. Estimated EF 50-55% Normal RV size and function. Trace MR, TR. [place] (Electronically Signed) Final Date: 15 November 2024 12:55
--- NOTE | 2024-11-13 15:30 | PC.SS ---
SLAG MIXER conducted chart review, unable to identify secondary number for patient's spouse. Patient's spouse number not in service. Patient does not possess personal artifacts in room to assist with identifying secondary contact number for spouse. SLAG MIXER contacted Siobhan NUGENT to request department assistance. Siobhan NUGENT to send officer to patient's listed address: [address] [place] [address] to attempt to locate patient's spouse and to have spouse contact ICU. Bedside nurse, resident and unit trust manager updated.
[2024-11-13 16:04] LABS: Hepatitis A Antibody IgM Non Reactive (Non React); Hepatitis B Core Antibody IgM Non Reactive (Non React); Hepatitis B Surface Ab NonReact(Not Immune) (Immune); Hepatitis B Surface Antigen Non Reactive (Non React); Hepatitis C Antibody Non Reactive (Non React)
[2024-11-13] MEDS: DOXYCYCLINE INJ 100 MG in SODIUM CHLORIDE 0.9% (P) 100 ML IV (16:12)
--- NOTE | 2024-11-13 16:18 | PC.SS ---
SCREEN REPAIRER CRUSHER received phone call from [place] [employer] staff, Pardeep; stating that PD made contact with patient's spouse. Spouse and patient residing with friend (Julia [phone]) at [address] [place] [address]. Spouse will be in route to ICU. SCREEN REPAIRER CRUSHER updated bedside nurse and resident.
[2024-11-13 16:59] LABS: Lactate (Lactic Acid) 2.9 mMol/L (0.4-2.0)
[2024-11-13 17:21] LABS: Sodium 145 mMol/L (136-145)
--- NOTE | 2024-11-13 17:54 | EVENTNT_ITS ---
Documentation for date of: 11/13/24 Event Note Event Note: implementation services analyst was able to make contact with the patient's who arrived to the ICU. Patient's was updated on patient's condition and hospital course thus far, expressed understanding of his prognosis. CODE STATUS was discussed, patient's made it clear that both she and the patient decided no heroic resuscitation measures in the event of heart stopping. As such, patient's CODE STATUS was updated to DNR in line with patient's wishes and values, as per patient's . John Scruggs MD PGY-1
[2024-11-13] MEDS: ALTEPLASE RECOMB INJ 2 MG VIAL INDWELLCAT (17:55)
[2024-11-13 18:06] LABS: Anion Gap 16 (7-16); BUN/Creatinine Ratio 21 Ratio (12-20); Blood Urea Nitrogen 89 mg/dL (9-23); Calcium (Corrected) 7.6 mg/dL (8.5-10.1); Carbon Dioxide 18.2 mMol/L (20.0-31.0); Chloride 112 mMol/L (98-107); Creatinine (Component) 4.2 mg/dL (0.6-1.3); Estimated Creatinine Clearance 12.2 mL/min (>60); Glucose 284 mg/dL (74-106); Magnesium 2.2 mg/dL (1.6-2.6); Osmolality,Calculated 327 (275-295); Phosphorous 4.9 mg/dL (2.4-5.1); Sodium 146 mMol/L (136-145); eGFR 14 See Note
[2024-11-13 18:12] LABS: Calcium 6.8 mg/dL (8.3-10.6); Potassium 6.1 mMol/L (3.4-5.1)
[2024-11-13] MEDS: Norepinephrine/NS 16mg/250ml 16 MG/250 ML BAG 24.494 MG IV (18:45)
[2024-11-13 19:06] LABS: Beta Hydroxybutyrate 2.9 mmol/L (<0.6)
[2024-11-13 19:22] LABS: Sodium 145 mMol/L (136-145)
[2024-11-13 19:56] LABS: Reflex Lactate? Y
[2024-11-13] MEDS: Sodium Bicarb 8.4% 50ml Vial* 88.23 MEQ in DEXTROSE 5%-WATER 500 ML 200 MEQ IV (20:35)
[2024-11-13 20:36] LABS: Lactic Acid, 3 HR 3.2 mMol/L (0.4-2.0)
[2024-11-13 21:13] LABS: Sodium 149 mMol/L (136-145)
[2024-11-13] MEDS: DEXTROSE 5%-NS 1,000 ML 125 ML IV (21:51)
[2024-11-13 23:06] LABS: Sodium 148 mMol/L (136-145)
[2024-11-13] MEDS: ACETAMINOPHEN 500 MG TABLET PO (23:09)
[2024-11-14] VITALS (191 sets, daily range): BP systolic 70–199; BP diastolic 36–161; PULSE 69–121; RESP 0–28; TEMP 36.4–38.3; O2SAT 73–100
[2024-11-14 00:04] LABS: Base Excess -11 (-3-3); HCO3 15 mEq/L (20-26); Inspired Oxygen, FIO2 45 %; O2 Saturation 100 % (91-98); PCO2 31 mmHg (32.0-48.0); PO2 195 mmHg (83-108); pH, Arterial 7.28 (7.35-7.45)
[2024-11-14 00:05] LABS: Allen Test Not Performed; Puncture Site Left Radial
[2024-11-14] MEDS: SODIUM CHLORIDE 3%(Hypertonic) 500 ML in PRE-MIXED 1 BAG 30 ML IV (00:43)
--- NOTE | 2024-11-14 01:04 | PC.RT ---
fio2 titrated to 45% per DR. Garzon per abg results
[2024-11-14 01:31] LABS: Sodium 150 mMol/L (136-145)
[2024-11-14 02:31] LABS: Albumin, Serum 2.7 gm/dL (3.4-4.8); Anion Gap 18 (7-16); BUN/Creatinine Ratio 20 Ratio (12-20); Blood Urea Nitrogen 91 mg/dL (9-23); Calcium 7.1 mg/dL (8.3-10.6); Calcium (Corrected) 8.1 mg/dL (8.5-10.1); Carbon Dioxide 18.1 mMol/L (20.0-31.0); Chloride 115 mMol/L (98-107); Creatinine (Component) 4.5 mg/dL (0.6-1.3); Estimated Creatinine Clearance 11.4 mL/min (>60); Glucose 360 mg/dL (74-106); Osmolality,Calculated 342 (275-295); Phosphorous 5.9 mg/dL (2.4-5.1); Potassium 5.9 mMol/L (3.4-5.1); Sodium 151 mMol/L (136-145); eGFR 13 See Note
[2024-11-14 04:26] LABS: Base Excess -9 (-3-3); HCO3 17 mEq/L (20-26); Inspired Oxygen, FIO2 30 %; O2 Saturation 99 % (91-98); PCO2 35 mmHg (32.0-48.0); PO2 104 mmHg (83-108)
[2024-11-14 04:27] LABS: Allen Test Not Performed; Puncture Site Arterial Line
[2024-11-14] MEDS: Norepinephrine/NS 16mg/250ml 16 MG/250 ML BAG 32.659 MG IV (05:00)
[2024-11-14 06:05] LABS: Basophils % (Auto) 0 % (0-2.5); Eosinophils % (Auto) 0 % (0-10); Hematocrit 34.7 % (41.0-53.0); Hemoglobin 11.1 g/dL (13.5-16.0); Immature Granulocytes % (Auto) 1 % (0-0); Immature Granulocytes Auto 0.04 Thou/mm3 (0.00-0.00); Lymphocytes # (Auto) 0.3 Thou/mm3 (1.0-4.8); Lymphocytes % (Auto) 4 % (10-50); Mean Corpuscular Hemoglobin 29.5 pg (25.0-35.0); Mean Corpuscular Volume 92 fL (80-100); Monocytes # (Auto) 0.2 Thou/mm3 (0.0-0.8); Monocytes % (Auto) 2 % (0-12); Neutrophils # (Auto) 7.4 Thou/mm3 (1.8-7.7); Neutrophils % (Auto) 93 % (37-80); Nucleated Red Blood Cell # 0.03 Thou/mm3 (0.00-0.00); Nucleated Red Blood Cell % 0 /100 WBC (0); RDW Standard Deviation 52.5 fL (35.1-43.9); Red Blood Count 3.76 Miln/mm3 (4.50-5.90)
[2024-11-14] MEDS: DEXTROSE 5%-NS 1,000 ML 125 ML IV ×3 (06:05→22:38)
[2024-11-14 06:17] LABS: Platelet Count 51 Thou/mm3 (140-440)
[2024-11-14 06:20] LABS: Albumin, Serum 2.9 gm/dL (3.4-4.8); Anion Gap 14 (7-16); BUN/Creatinine Ratio 21 Ratio (12-20); Blood Urea Nitrogen 95 mg/dL (9-23); Calcium (Corrected) 7.8 mg/dL (8.5-10.1); Carbon Dioxide 18.9 mMol/L (20.0-31.0); Chloride 116 mMol/L (98-107); Creatinine (Component) 4.6 mg/dL (0.6-1.3); Estimated Creatinine Clearance 11.1 mL/min (>60); Glucose 298 mg/dL (74-106); Osmolality,Calculated 336 (275-295); Phosphorous 5.6 mg/dL (2.4-5.1); Potassium 5.6 mMol/L (3.4-5.1); Sodium 149 mMol/L (136-145); eGFR 12 See Note
[2024-11-14] MEDS: VASOPRESSIN IN NS IVPB 20 UNIT/100 ML BAG 9 UNIT IV ×2 (06:20→17:55)
[2024-11-14 06:24] LABS: Slide Review Platelets confirmed
[2024-11-14 06:26] LABS: Calcium 6.9 mg/dL (8.3-10.6)
[2024-11-14] MEDS: fentaNYL 2,500 MCG/250 ML BAG 2,500 MCG/250 ML BAG 12.5 MCG IV (07:32)
[2024-11-14 08:04] LABS: Basophils % (Auto) 0 % (0-2.5); Eosinophils % (Auto) 0 % (0-10); Hematocrit 33.9 % (41.0-53.0); Immature Granulocytes % (Auto) 0 % (0-0); Immature Granulocytes Auto 0.03 Thou/mm3 (0.00-0.00); Lymphocytes # (Auto) 0.4 Thou/mm3 (1.0-4.8); Lymphocytes % (Auto) 5 % (10-50); Mean Corpuscular HGB Conc 32.4 g/dl (31.0-37.0); Mean Corpuscular Hemoglobin 29.6 pg (25.0-35.0); Mean Corpuscular Volume 91 fL (80-100); Monocytes # (Auto) 0.2 Thou/mm3 (0.0-0.8); Monocytes % (Auto) 2 % (0-12); Neutrophils # (Auto) 7.4 Thou/mm3 (1.8-7.7); Neutrophils % (Auto) 92 % (37-80); Nucleated Red Blood Cell # 0.04 Thou/mm3 (0.00-0.00); Nucleated Red Blood Cell % 1 /100 WBC (0); RDW Standard Deviation 51.6 fL (35.1-43.9); Red Blood Count 3.72 Miln/mm3 (4.50-5.90); White Blood Count 8.1 Thou/mm3 (3.8-10.6)
[2024-11-14 08:21] LABS: Platelet Count 47 Thou/mm3 (140-440)
[2024-11-14] MEDS: HEPARIN SOD INJ 1000 UNIT/ML VIAL 10 ML 2500 UNIT INDWELLCAT ×2 (08:38→11:52)
--- NOTE | 2024-11-14 08:46 | PC.NURSE ---
bp low, pt remains w/o distress noted. bedside nurse notified. Will admin prn albumin and cont. to monitor
[2024-11-14] MEDS: ALBUMIN HUMAN 25% IVPB 25 GM/100 ML BTL IV (08:47)
[2024-11-14] MEDS: PROPOFOL 1,000 MG IVPB 1,000 MG/100 ML VIAL 2.177 MG IV (08:53)
[2024-11-14 09:48] LABS: Albumin, Serum 2.9 gm/dL (3.4-4.8); Anion Gap 12 (7-16); BUN/Creatinine Ratio 20 Ratio (12-20); Blood Urea Nitrogen 66 mg/dL (9-23); Calcium (Corrected) 7.9 mg/dL (8.5-10.1); Carbon Dioxide 24.5 mMol/L (20.0-31.0); Chloride 110 mMol/L (98-107); Creatinine (Component) 3.3 mg/dL (0.6-1.3); Estimated Creatinine Clearance 18.7 mL/min (>60); Glucose 200 mg/dL (74-106); Osmolality,Calculated 315 (275-295); Phosphorous 3.8 mg/dL (2.4-5.1); Potassium 4.4 mMol/L (3.4-5.1); Sodium 146 mMol/L (136-145); eGFR 19 See Note
--- NOTE | 2024-11-14 10:04 | PD.RESPRO ---
Documentation for date of: 11/14/24 Subjective Subjective Interval history: 11/13/2024; patient was seen and examined by bedside, overnight patient underwent HD dialysis catheter placement and arterial line placement, U-Tox was noted for methamphetamine, head CT was negative for acute bleed/midline shift, C/A/P CT was only noted for bibasilar pneumonia along with cholelithiasis and rectal wall thickening given concern for proctitis. Remains sedated and intubated, continues to require high dose of Levophed along with Vasopressin to maintain MAP goal, continues to be on Zosyn, Doxycycline was added for MRSA concern. In A.M patient's corrected Na rapidly corrected to 165 in light of rapid glucose correction, Insulin drip was held and patient was given 1 amp of D50 to increase BG from 354 and lactated ringer was discontinued along. Patient's BUN in AM was 126, nephrology recommended starting patient on hypertonic saline to reverse rapid Sodium correction, patient was given a 100cc bolus of NaCl 3% and was started on NaCl 3% drip. In light of rapid sodium correction there was concern for increased ICP/cerebral edema, Optic nerve US was done on patient's right eye, diameter was noted to be 8.5mm. Patient's condition remains extremely critical despite multiple attempts to contact patient's /any family member by ICU staff and manager social responsibility were unsuccessful, [facility] were contacted to attempt reaching his at address on record. 11/14/2024; Patient seen and examined by bedside, overnight patient was restarted on insulin drip for DKA, patient underwent HD today as well, he was able to complete his HD session but didn't tolerate it well with multiple episodes of hypotension despite increasing already high vasopressor doses. Ucx showed proteus mirabilis that was pansensitive, Zosyn was de-escalated to Ceftriaxone, with continuation of Doxycycline. Repeat Ocular US for optic nerve US noted for decrease in diameter from 8.5 to 4.7mm, will discontinue hourly sodium checks along with the q4h renal panel, discussed patient's condition with after social workers were able to contact her, medical condition was explained in details that a improvement in physical condition is expected but mental status remains unkown and maybe significantly affected. Insulin drip discontinued and patient was given Insulin glargine 30units, wbc count normalized, PLT count continues to drop but his 4T score showed low probability for HIT, will continue to monitor as thrombocytopneia likely to improve as sepsis resolves. Exam Vital Signs Temp Pulse Resp BP Pulse Ox O2 Del Method O2 Flow Rate 97.5 F 90 22 H 123/48 L 100 Mechanical Ventilation 15 11/14/24 07:49 11/14/24 10:00 11/14/24 07:49 11/14/24 10:00 11/14/24 07:49 11/12/24 21:19 11/12/24 15:25 FiO2 30 11/14/24 07:49 Narrative Exam GEN: Critically ill, acutely distressed and dishelved, sedated and intubated. Neuro: Deferred due to sedation. HEENT: NCAT, trachea midline, moist mucous membranes, ET tube, PO tube noted. CVS: RRR, S1S2 present, no M/R/G. No JVD. Resp: Increased RR, CTA B/L. No rhonchi, rales, crackles or wheezing, ecchymosis on both lower lateral ends of rib cage. ABD: Soft, no grimace to palpation, bowel sounds present in all 4 quadrants. MSK: Muscle wasting noted on BLE. BUE purpulish discoloration noted along with cold extremities, no edema or rash. Objective Labs 11/15/24 04:35 11/15/24 04:35 Labs: Laboratory Results - last 24 hr 11/13/24 11/13/24 11/13/24 01:40 09:25 12:05 WBC RBC Hgb Hct MCV MCH MCHC RDW Std Deviation Plt Count Neut % (Auto) Lymph % (Auto) Mcculloch % (Auto) Eos % (Auto) Baso % (Auto) Neut # (Auto) Lymph # (Auto) M[place]ulloch # (Auto) Eos # (Auto) Baso # (Auto) Immature Gran # (Auto) Absolute Nucleated RBC Immature Gran % Nucleated RBC % Puncture Site Right Brachial ABG pH 7.30 L D ABG pCO2 115 H* D ABG pO2 23 L* D ABG HCO3 57 H ABG O2 Saturation 38 L ABG Base Excess 26 H FiO2 55 Sodium 145 143 Potassium 4.9 D 5.5 H D Chloride 108 H 108 H Carbon Dioxide 22.5 22.0 Anion Gap 15 13 BUN 75 H 84 H Creatinine 3.6 H D 4.0 H Estim Creat Clear Calc 14.2 L 12.8 L eGFR 17 L 15 L BUN/Creatinine Ratio 21 H 21 H Glucose 120 H D 196 H D Calculated Osmolality 311 H 315 H Lactic Acid Calcium 7.6 L 7.4 L Corrected Calcium 8.0 L 7.9 L Phosphorus 3.6 Magnesium 2.2 Total Bilirubin 0.5 AST 71 H ALT 42 Alkaline Phosphatase 125 H Total Protein 5.6 L Albumin 3.5 D 3.4 Globulin 2.2 L Albumin/Globulin Ratio 1.5 Beta-Hydroxybutyrate/Acetoacetate Hepatitis A IgM Ab Hep Bs Antigen Hep Bs Antibody Hep B Core IgM Ab Hepatitis C Antibody Misc Test Result 11/13/24 11/13/24 11/13/24 12:06 13:20 14:32 WBC RBC Hgb Hct MCV MCH MCHC RDW Std Deviation Plt Count Neut % (Auto) Lymph % (Auto) [place]ulloch % (Auto) Eos % (Auto) Baso % (Auto) Neut # (Auto) Lymph # (Auto) [place]ulloch # (Auto) Eos # (Auto) Baso # (Auto) Immature Gran # (Auto) Absolute Nucleated RBC Immature Gran % Nucleated RBC % Puncture Site Left Radial ABG pH 7.40 ABG pCO2 37 ABG pO2 227 H D ABG HCO3 23 ABG O2 Saturation 100 H ABG Base Excess -2 FiO2 65 Sodium 145 145 Potassium 5.6 H Chloride 110 H Carbon Dioxide 20.6 Anion Gap 14 BUN 78 H Creatinine 4.0 H Estim Creat Clear Calc 12.8 L eGFR 15 L BUN/Creatinine Ratio 20 Glucose 208 H Calculated Osmolality 318 H Lactic Acid Calcium 7.1 L Corrected Calcium 7.7 L Phosphorus 4.5 Magnesium 2.2 Total Bilirubin AST ALT Alkaline Phosphatase Total Protein Albumin 3.2 L Globulin Albumin/Globulin Ratio Beta-Hydroxybutyrate/Acetoacetate Hepatitis A IgM Ab Non Reactive Hep Bs Antigen Non Reactive Hep Bs Antibody NonReact(Not Immune) L Hep B Core IgM Ab Non Reactive Hepatitis C Antibody Non Reactive Misc Test Result 11/13/24 11/13/24 11/13/24 16:32 17:35 18:31 WBC RBC Hgb Hct MCV MCH MCHC RDW Std Deviation Plt Count Neut % (Auto) Lymph % (Auto) [place]och % (Auto) Eos % (Auto) Baso % (Auto) Neut # (Auto) Lymph # (Auto) [place] # (Auto) Eos # (Auto) Baso # (Auto) Immature Gran # (Auto) Absolute Nucleated RBC Immature Gran % Nucleated RBC % Puncture Site ABG pH ABG pCO2 ABG pO2 ABG HCO3 ABG O2 Saturation ABG Base Excess FiO2 Sodium 145 146 H 145 Potassium 6.1 H* D Chloride 112 H Carbon Dioxide 18.2 L Anion Gap 16 BUN 89 H Creatinine 4.2 H* Estim Creat Clear Calc 12.2 L eGFR 14 L* BUN/Creatinine Ratio 21 H Glucose 284 H D Calculated Osmolality 327 H Lactic Acid 2.9 H Calcium 6.8 L* Corrected Calcium 7.6 L Phosphorus 4.9 Magnesium 2.2 Total Bilirubin AST ALT Alkaline Phosphatase Total Protein Albumin 3.0 L Globulin Albumin/Globulin Ratio Beta-Hydroxybutyrate/Acetoacetate 2.9 H Hepatitis A IgM Ab Hep Bs Antigen Hep Bs Antibody Hep B Core IgM Ab Hepatitis C Antibody Mis Test Result 11/13/24 11/13/24 11/13/24 20:27 22:45 23:50 WBC RBC Hgb Hct MCV MCH MCHC RDW Std Deviation Plt Count Neut % (Auto) Lymph % (Auto) [place]och % (Auto) Eos % (Auto) Baso % (Auto) Neut # (Auto) Lymph # (Auto) [place]och # (Auto) Eos # (Auto) Baso # (Auto) Immature Gran # (Auto) Absolute Nucleated RBC Immature Gran % Nucleated RBC % Puncture Site Left Radial ABG pH 7.28 L D ABG pCO2 31 L ABG pO2 195 H D ABG HCO3 15 L ABG O2 Saturation 100 H ABG Base Excess -11 L FiO2 45 Sodium 149 H 148 H Potassium Chloride Carbon Dioxide Anion Gap BUN Creatinine Estim Creat Clear Calc eGFR BUN/Creatinine Ratio Glucose Calculated Osmolality Lactic Acid 3.2 H Calcium Corrected Calcium Phosphorus Magnesium Total Bilirubin AST ALT Alkaline Phosphatase Total Protein Albumin Globulin Albumin/Globulin Ratio Beta-Hydroxybutyrate/Acetoacetate Hepatitis A IgM Ab Hep Bs Antigen Hep Bs Antibody Hep B Core IgM Ab Hepatitis C Antibody Mis Test Result 11/14/24 11/14/24 11/14/24 00:38 01:55 04:10 WBC RBC Hgb Hct MCV MCH MCHC RDW Std Deviation Plt Count Neut % (Auto) Lymph % (Auto) [place] % (Auto) Eos % (Auto) Baso % (Auto) Neut # (Auto) Lymph # (Auto) [place] # (Auto) Eos # (Auto) Baso # (Auto) Immature Gran # (Auto) Absolute Nucleated RBC Immature Gran % Nucleated RBC % Puncture Site Arterial Line ABG pH 7.30 L ABG pCO2 35 ABG pO2 104 D ABG HCO3 17 L ABG O2 Saturation 99 H ABG Base Excess -9 L FiO2 30 Sodium 150 H 151 H Potassium 5.9 H Chloride 115 H Carbon Dioxide 18.1 L Anion Gap 18 H BUN 91 H Creatinine 4.5 H* Estim Creat Clear Calc 11.4 L eGFR 13 L* BUN/Creatinine Ratio 20 Glucose 360 H D Calculated Osmolality 342 H Lactic Acid Calcium 7.1 L Corrected Calcium 8.1 L Phosphorus 5.9 H Magnesium Total Bilirubin AST ALT Alkaline Phosphatase Total Protein Albumin 2.7 L Globulin Albumin/Globulin Ratio Beta-Hydroxybutyrate/Acetoacetate Hepatitis A IgM Ab Hep Bs Antigen Hep Bs Antibody Hep B Core IgM Ab Hepatitis C Antibody [facility] [place], [place] Test Result 11/14/24 11/14/24 11/14/24 05:15 07:40 09:10 WBC 8.0 8.1 RBC 3.76 L 3.72 L Hgb 11.1 L D 11.0 L Hct 34.7 L 33.9 L MCV 92 91 MCH 29.5 29.6 MCHC 32.0 32.4 RDW Std Deviation 52.5 H 51.6 H Plt Count 51 L D 47 L Neut % (Auto) 93 H 92 H Lymph % (Auto) 4 L 5 L Mcculloch % (Auto) 2 2 Eos % (Auto) 0 0 Baso % (Auto) 0 0 Neut # (Auto) 7.4 7.4 Lymph # (Auto) 0.3 L 0.4 L M[place]ulloch # (Auto) 0.2 0.2 Eos # (Auto) 0.0 0.0 Baso # (Auto) 0.0 0.0 Immature Gran # (Auto) 0.04 H 0.03 H Absolute Nucleated RBC 0.03 H 0.04 H Immature Gran % 1 H 0 Nucleated RBC % 0 1 H Puncture Site ABG pH ABG pCO2 ABG pO2 ABG HCO3 ABG O2 Saturation ABG Base Excess FiO2 Sodium 149 H 146 H Potassium 5.6 H 4.4 D Chloride 116 H 110 H Carbon Dioxide 18.9 L 24.5 Anion Gap 14 12 BUN 95 H 66 H Creatinine 4.6 H* 3.3 H D Estim Creat Clear Calc 11.1 L 18.7 L eGFR 12 L* 19 L BUN/Creatinine Ratio 21 H 20 Glucose 298 H D 200 H D Calculated Osmolality 336 H 315 H Lactic Acid Calcium 6.9 L 7.0 L Corrected Calcium 7.8 L 7.9 L Phosphorus 5.6 H 3.8 Magnesium Total Bilirubin AST ALT Alkaline Phosphatase Total Protein Albumin 2.9 L 2.9 L Globulin Albumin/Globulin Ratio Beta-Hydroxybutyrate/Acetoacetate Hepatitis A IgM Ab Hep Bs Antigen Hep Bs Antibody Hep B Core IgM Ab Hepatitis C Antibody Misc Test Result Platelets confirmed ABG Interpretation ABG results: 11/12/24 11/12/24 11/13/24 15:00 22:55 01:40 ABG pH 7.19 L* 7.30 L D ABG pCO2 35 115 H* D ABG pO2 471 H 23 L* D ABG HCO3 14 L 57 H ABG O2 Saturation 100 H 38 L ABG Base Excess -14 L 26 H VBG pH 7.17 L VBG pCO2 22 L VBG pO2 92 H VBG Base Excess -19 L 11/13/24 11/13/24 11/13/24 03:18 12:06 23:50 ABG pH 7.33 L 7.40 7.28 L D ABG pCO2 32 D 37 31 L ABG pO2 202 H D 227 H D 195 H D ABG HCO3 17 L 23 15 L ABG O2 Saturation 100 H 100 H 100 H ABG Base Excess -8 L -2 -11 L VBG pH VBG pCO2 VBG pO2 VBG Base Excess 11/14/24 04:10 ABG pH 7.30 L ABG pCO2 35 ABG pO2 104 D ABG HCO3 17 L ABG O2 Saturation 99 H ABG Base Excess -9 L VBG pH VBG pCO2 VBG pO2 VBG Base Excess Quality Measures Quality Measures VTE prophylaxis Advance care planning discussed with:: spouse Assessment & Plan Assessment Current Active Medications: Generic Name Dose Route Start Last Admin Trade Name Freq PRN Reason Stop Dose Admin Acetaminophen 650 mg 11/13/24 13:41 11/13/24 14:10 Acetaminophen Supp 650 Mg Supp MT 12/13/24 13:40 650 mg Q6HR PRN Administration Pain Or Fever > 100.4 Protocol Acetaminophen 500 mg 11/13/24 20:49 11/13/24 23:09 Acetaminophen 500 Mg Tablet PO 12/13/24 20:48 500 mg Q6HR PRN Administration Fever > 100.4 Famotidine 20 mg 11/14/24 09:30 Famotidine Inj 10 Mg/Ml Vial 2 Ml IVP 12/14/24 09:29 QDAY MARIE Heparin Sodium (Porcine) 2,500 unit 11/13/24 06:00 11/14/24 08:38 Heparin Sod Inj 1000 Unit/Ml Vial 10 Ml INDWELLCAT 11/27/24 05:59 2,500 unit PRN PRN Administration CLOTTING PREVENTION Heparin Sodium (Porcine) 2,500 unit 11/13/24 09:20 11/13/24 09:25 Heparin Sod Inj 1000 Unit/Ml Vial 10 Ml INDWELLCAT 11/27/24 09:19 2,500 unit PRN PRN Administration DIALYSIS Heparin Sodium (Porcine) 5,000 unit 11/14/24 09:30 Heparin Sod Inj 5000 Unit/Ml Vial SC 11/28/24 09:29 Q8HR MARIE Propofol 1,000 mg in 100 mls @ 2.177 mls/hr 11/12/24 18:01 11/14/24 09:00 Diprivan Ivpb IV 12/12/24 18:00 0 mcg/kg/min .Q24H PRN 0 mls/hr PER PROTOCOL Titration Protocol 5 MCG/KG/MIN Fentanyl Citrate 2,500 mcg in 250 mls @ 2.5 mls/hr 11/12/24 18:13 11/14/24 09:00 Sublimaze Inj 2,500 Mcg/250 Ml Bag IV 11/17/24 18:12 25 mcg/hr .Q24H PRN 2.5 mls/hr PER PROTOCOL Titration Protocol 25 MCG/HR Insulin Human Regular 100 unit in 100 mls @ 7.258 mls/hr 11/12/24 19:36 11/14/24 09:28 Myxredlin IV 12/12/24 19:35 0.05 unit/kg/hr .[id number] PRN 3.629 mls/hr PER PROTOCOL Titration Protocol 0.1 UNIT/KG/HR Vasopressin/Sodium Chloride 20 unit in 100 mls @ 9 mls/hr 11/12/24 22:30 11/14/24 06:20 Vasostrict/Ns Ivpb IV 12/12/24 22:29 0.03 unit/min .Q11H7M PRN 9 mls/hr PER PROTOCOL Administration Protocol 0.03 UNIT/MIN Norepinephrine Bitartrate 16 mg in 250 mls @ 3.402 mls/hr 11/13/24 01:47 11/14/24 09:00 Levophed In Ns 16mg/250ml IV 12/13/24 01:46 0.54 mcg/kg/min .Q24H PRN 36.741 mls/hr PER PROTOCOL Titration Protocol 0.05 MCG/KG/MIN Albumin Human 25 gm in 100 mls @ 100 mls/min 11/13/24 04:54 11/14/24 08:47 Albuminar-25 Ivpb IV 100 mls/min PRN PRN Administration DIALYSIS Piperacillin Sod/Tazobactam 50 mls @ 12.5 mls/hr 11/13/24 21:00 11/13/24 21:46 Sod 3.375 gm/ Sodium Chloride IV 11/19/24 22:29 12.5 mls/hr Q12HR MARIE Administration Doxycycline Hyclate 100 mg/ 100 mls @ 100 mls/hr 11/13/24 15:00 11/13/24 16:12 Sodium Chloride IV 11/20/24 14:59 100 mls/hr BID MARIE Administration Sodium Bicarbonate 88.23 meq/ 588.23 mls @ 200 mls/hr 11/13/24 20:09 11/13/24 20:35 Dextrose IV 12/13/24 20:08 200 mls/hr .[id number] MARIE Administration Dextrose/Sodium Chloride 1,000 mls @ 125 mls/hr 11/13/24 21:30 11/14/24 06:05 D5-Ns IV 12/13/24 21:29 125 mls/hr .Q8H MARIE Administration Plan 78 year old male patient with PMHx of CABG, CVA, HTN, HLD, and meth/fentanyl use BIBA after he was found at home non-responsive at home, no further hx obtained at time of arrival, patient was admitted to ICU for further evaluation and care of septic shock/ DKA with severe metabolic derangements, and NEELAM. CT imaging of head, chest/abdomen/pelvis were pending. 11/14/2024; Patient seen and examined by bedside, overnight patient was restarted on insulin drip for DKA, patient underwent HD today as well, he was able to complete his HD session but didn't tolerate it well with multiple episodes of hypotension despite increasing already high vasopressor doses. Ucx showed proteus mirabilis that was pansensitive, Zosyn was de-escalated to Ceftriaxone, with continuation of Doxycycline. Repeat Ocular US for optic nerve US noted for decrease in diameter from 8.5 to 4.7mm, will discontinue hourly sodium checks along with the q4h renal panel, discussed patient's condition with after social workers were able to contact her, medical condition was explained in details that a improvement in physical condition is expected but mental status remains unkown and maybe significantly affected. Insulin drip discontinued and patient was given Insulin glargine 30units, wbc count normalized, PLT count continues to drop but his 4T score showed low probability for HIT, will continue to monitor as thrombocytopneia likely to improve as sepsis resolves. 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 CVS #Septic shock Fluid resuscitated, on levophed. Maintain MAP >65. Zosyn F/U Bcx/Ucx/Sputum Cx Resp #Acute hypoxic respiratory failure 2/2 septic shock and DKA Intubated. F/U ABG F/U Bcx, Ucx, Sputum Cx Adjust vent setting accordingly. Patient started on Zosyn for aspiration PNA coverage along with possible abdomen/UTI infection. De-escalate abx as warranted. Renal #ARF 2/2 DKA and septic shock #Hyperkalemia #Hyepr osmolar hyperchloremic hypernatremia #Hypermagnesemia #Hyperphsphatemia #AGMA #Uremia #Lactic acidosis. Corrected Na 167, K 6.3, HCO3 13 -Volume resuscitated, on DKA protocol -Q4hr renal panel. -Max correction 6-8 Meq 24 hrs, .5/hr for serum Na -Replete electrolytes as needed. Patient likely to require HD. Nephrology consulted, recs appreciated. ID #Septic shock 2/2 UTI vs PNA vs Abdominal infect -Fluid resuscitated, on ivf -On Zosyn -F/u Bcx/Ucx/ Sputum Cx Heme #Anemia likely 2/2 CKD vs malnutrition #Leukocytosis 2/2 Pyelonephritis #Thrombocytopenia in setting of severe sepsis 2/2 E. Coli bacteremia/Pylonephritis -DIC possible, but less likely, no evidence of clotting -Suspect improvement as overall condition improves -Hemodynamically stable, no indication to transfuse at the moment. Endo #DKA #AGMA DKA protocol. Slow rate of correction in glucose levels in light of hypernatremia. GI ##Elevated Lipase Pending further imaging. Patient sedated, unable to obtain Hx of pain, nor see it on exam. DVT prophylaxis: Heparin sc Diet: OG tube Ferraro: + Lines: PIV, RIJ CODE STATUS: Full code Reason for hospitalization/disposition: Septic shock/ DKA/ NEELAM Plan of care discussed with attending Dr. Wanda Gaming M.D. PGY-3 Attending Provider Attestation/Addendum Patient seen and examined with above resident, Parish Gaming MD. I agree with the findings, assessment, and plan of care as documented except for any differences below. Patient with slow improvement related to reduction in pressor requirement though did need to escalate once again after hemodialysis. Unable to remove any quantity of fluid of significance. Patient with significant change in serum osmolarity. We did repeat ultrasound of the optic sheath which showed improvement and decline in size suggesting resolution of component of cerebral edema. We did maintain MAP goal greater than 70 for the next 24 hours to ensure adequate perfusion to avoid secondary injury from hypoperfusion or low cerebral perfusion pressure though we do not have means to accurately measure this at our facility on a continuous basis. Patient remains on appropriate sedation and no longer febrile with appropriate antibiotics. Peripheral cyanosis continued to pulses remain intact this is likely related to high-dose vasopressors and will continue to wean as able. No evidence of gangrene at this point. Patient transitioned off insulin drip with resolution of DKA to subcutaneous regimen of Lantus though I am concerned that with his higher pressor requirement, absorption may be a problem though dosing of pressors is coming down now. Appreciate nephrology's input ongoing overnight patient did receive appropriate hypertonic saline to maintain osmolarity to avoid drastic change associated with having to do hemodialysis for multiple metabolic derangements that were life-threatening. At patient's was at bedside and we did updated on plan of care including guarded prognosis. Total critical care time: I personally spent 40 minutes for review of physiologic parameters, directing plan of care throughout the day, coordination of care with other subspecialists, and counseling patient's at bedside. This is exclusive of time spent teaching of staff and performing any separate billable procedures. Patient continues to require critical care services for acute hypoxic respiratory failure, acute metabolic encephalopathy secondary to hyperosmolar nonketotic hyperglycemia, septic shock secondary to aspiration pneumonia and acute renal failure on hemodialysis. Patient remains at high risk for increased morbidity and mortality requiring close monitoring only available in the ICU.
[2024-11-14 10:09] LABS: Slide Review Platelets confirmed
--- NOTE | 2024-11-14 10:38 | PC.SS ---
This is 78-year-old, , male who presented to the ED due to suffering from altered mental status. Patient is now in ICU, intubated, unable to provide information. SW attempted to contact patient's , Omero ([phone]); however, her phone is disconnected. SW contacted patient's friend, Julia ([phone]) who reported that Omero has not paid her cellphone bill. She can provide some information. Patient and his , Omero were homeless about 2 months ago. Julia started renting a room for them at her house. Prior to admission, patient was semi-independent with ADLs; he would mainly use a walker, shower chair. Patient was not in dialysis, nor does he have O2. Patient follows up at the [facility]. When medically clear, patient might need short-term rehabilitation. Discharge plan: patient will need short-term rehabilitation, but it needs to be confirmed with Omero. Next of Kin: Omero Robertson, .
[2024-11-14] MEDS: PIPER/TAZO INJ 3.375 GM in SODIUM CHLORIDE 0.9% (P) 50 ML IV (12:22)
[2024-11-14] MEDS: FAMOTIDINE INJ 10 MG/ML VIAL 2 ML 20 MG IVP (12:22)
[2024-11-14] MEDS: DOXYCYCLINE INJ 100 MG in SODIUM CHLORIDE 0.9% (P) 100 ML IV ×2 (12:22→21:00)
[2024-11-14] MEDS: HEPARIN SOD INJ 5000 UNIT/ML VIAL SC ×2 (12:22→21:00)
[2024-11-14] MEDS: Norepinephrine/NS 16mg/250ml 16 MG/250 ML BAG 38.981 MG IV (12:36)
[2024-11-14] MEDS: INSULIN GLARGINE (Lantus) 5 UNIT/0.05 ML (PER 5 UNITS) 30 UNIT SC (14:00)
[2024-11-14 14:32] LABS: Alanine Aminotransferase 29 U/L (10-49); Albumin, Serum 3.3 gm/dL (3.4-4.8); Alkaline Phosphatase 98 U/L (46-116); Anion Gap 13 (7-16); Aspartate Amino Transferase 65 U/L (0-34); BUN/Creatinine Ratio 19 Ratio (12-20); Bilirubin,Direct 0.3 mg/dL (0.0-0.3); Bilirubin,Total 0.5 mg/dL (0.3-1.2); Blood Urea Nitrogen 56 mg/dL (9-23); Calcium 7.2 mg/dL (8.3-10.6); Calcium (Corrected) 7.8 mg/dL (8.5-10.1); Carbon Dioxide 21.6 mMol/L (20.0-31.0); Chloride 110 mMol/L (98-107); Estimated Creatinine Clearance 20.5 mL/min (>60); Glucose 153 mg/dL (74-106); Osmolality,Calculated 307 (275-295); Potassium 4.8 mMol/L (3.4-5.1); Sodium 145 mMol/L (136-145); Total Protein 5.4 gm/dL (5.7-8.2); eGFR 21 See Note
--- NOTE | 2024-11-14 17:27 | ESPR_ITS ---
Documentation for date of: 11/14/24 Subjective Subjective Interval history: Chart review done Mr. Robertson is a 78-year-old gentleman with extensive past medical history of hypertension, dyslipidemia, coronary artery disease status post CABG, stroke, drug abuse presented to the emergency department brought in by ambulance with altered mental status. In the emergency department patient was hypothermic with a temp of 93.9. Patient was given Joby hugger. Labs showed WBC 16, hemoglobin 12.7, platelets 208. ABG showing pH 7.19, pCO2 35, pO2 471, HCO3 14. Chemistry showing sodium 141, potassium 6.3, bicarbonate less than 10, BUN 117, creatinine 5.6, glucose 1213, lactic acid 4.8, phosphorus 11.5, magnesium 3.5, AST 46, ALT 27, alk phos 144, CK5 020, troponin 0.045, albumin 2.9, Pro-Camilo 49.3, lipase 292, beta hydroxy 3.3 urinalysis shows significant pyuria, urine tox screen positive for amphetamines. Chest x-ray showed no pneumonia. CT abdomen showed pneumonia, proctitis, kidneys with no hydronephrosis. Patient received 3L of NS at ED, calcium gluconate, ceftriaxone. At ED patient's BP dropped significantly after being warmed prompting initiation of Levophed via peripheral line until central line was placed, patient was also intubated for airway protection. Patient was admitted to ICU for further evaluation and care of septic shock/ DKA with severe metabolic derangements, and NEELAM. CT imaging of head, chest/abdomen/pelvis were pending. Patient was started on insulin. Renal consultation requested for metabolic acidosis, acute renal failure. Currently seen in the emergency department. Dr. Muñoz and team are planning to place a central line. 11/13/2024 patient currently seen in ICU. Urine output still remains very low. This morning patient had significant electrolyte imbalance, intractable metabolic acidosis that I had to do emergency dialysis. However osmolality dropped significantly and I spoke to Dr. Muñoz-planning for 3% hypertonic saline. Patient remains ventilated. 11/14/2023 patient currently seen in ICU. Urine output low. Remains on ventilator. Currently on dialysis. Labs, medications reviewed. On pressors. Had difficulty during dialysis with significant fluctuations in blood pressure and needing more pressors. Family made him DNR. Review of Systems Review of Systems ROS Unobtainable: unobtainable due to medical condition and due to endotracheal tube Exam Vital Signs Temp Pulse Resp BP Pulse Ox O2 Del Method O2 Flow Rate 38.2 C H 88 26 H 136/64 H 100 Mechanical Ventilation 15 11/14/24 16:00 11/14/24 17:00 11/14/24 11:54 11/14/24 17:00 11/14/24 17:00 11/14/24 16:00 11/12/24 15:25 FiO2 30 11/14/24 16:00 Narrative Exam GENERAL APPEARANCE: Patient in ICU. Intubated, sedated Right IJ central line Right femoral Vas-Cath CARDIOVASCULAR: Heart regular, no murmurs LUNGS/CHEST: Few rhonchi noted bilaterally ABDOMEN: Soft, nontender, nondistended. No masses. Normal bowel sounds. EXTREMITIES: No edema, clubbing or cyanosis. SKIN: Skin exam normal without any rashes MUSCULOSKELETAL: In bed NEUROLOGICAL : Intubated, sedated Objective Labs 11/16/24 05:00 11/15/24 04:35 Labs: Laboratory Results - last 24 hr 11/13/24 11/13/24 11/13/24 01:40 17:35 18:31 WBC RBC Hgb Hct MCV MCH MCHC RDW Std Deviation Plt Count Neut % (Auto) Lymph % (Auto) [place] % (Auto) Eos % (Auto) Baso % (Auto) Neut # (Auto) Lymph # (Auto) [place] # (Auto) Eos # (Auto) Baso # (Auto) Immature Gran # (Auto) Absolute Nucleated RBC Immature Gran % Nucleated RBC % Puncture Site Right Brachial ABG pH 7.30 L D ABG pCO2 115 H* D ABG pO2 23 L* D ABG HCO3 57 H ABG O2 Saturation 38 L ABG Base Excess 26 H FiO2 55 Sodium 146 H 145 Potassium 6.1 H* D Chloride 112 H Carbon Dioxide 18.2 L Anion Gap 16 BUN 89 H Creatinine 4.2 H* Estim Creat Clear Calc 12.2 L eGFR 14 L* BUN/Creatinine Ratio 21 H Glucose 284 H D Calculated Osmolality 327 H Lactic Acid Calcium 6.8 L* Corrected Calcium 7.6 L Phosphorus 4.9 Magnesium 2.2 Total Bilirubin Direct Bilirubin AST ALT Alkaline Phosphatase Total Protein Albumin 3.0 L Beta-Hydroxybutyrate/Acetoacetate 2.9 H Misc Test Result 11/13/24 11/13/24 11/13/24 20:27 22:45 23:50 WBC RBC Hgb Hct MCV MCH MCHC RDW Std Deviation Plt Count Neut % (Auto) Lymph % (Auto) [place] % (Auto) Eos % (Auto) Baso % (Auto) Neut # (Auto) Lymph # (Auto) [place] # (Auto) Eos # (Auto) Baso # (Auto) Immature Gran # (Auto) Absolute Nucleated RBC Immature Gran % Nucleated RBC % Puncture Site Left Radial ABG pH 7.28 L D ABG pCO2 31 L ABG pO2 195 H D ABG HCO3 15 L ABG O2 Saturation 100 H ABG Base Excess -11 L FiO2 45 Sodium 149 H 148 H Potassium Chloride Carbon Dioxide Anion Gap BUN Creatinine Estim Creat Clear Calc eGFR BUN/Creatinine Ratio Glucose Calculated Osmolality Lactic Acid 3.2 H Calcium Corrected Calcium Phosphorus Magnesium Total Bilirubin Direct Bilirubin AST ALT Alkaline Phosphatase Total Protein Albumin Beta-Hydroxybutyrate/Acetoacetate Misc Test Result 11/14/24 11/14/24 11/14/24 00:38 01:55 04:10 WBC RBC Hgb Hct MCV MCH MCHC RDW Std Deviation Plt Count Neut % (Auto) Lymph % (Auto) [place] % (Auto) Eos % (Auto) Baso % (Auto) Neut # (Auto) Lymph # (Auto) [place] # (Auto) Eos # (Auto) Baso # (Auto) Immature Gran # (Auto) Absolute Nucleated RBC Immature Gran % Nucleated RBC % Puncture Site Arterial Line ABG pH 7.30 L ABG pCO2 35 ABG pO2 104 D ABG HCO3 17 L ABG O2 Saturation 99 H ABG Base Excess -9 L FiO2 30 Sodium 150 H 151 H Potassium 5.9 H Chloride 115 H Carbon Dioxide 18.1 L Anion Gap 18 H BUN 91 H Creatinine 4.5 H* Estim Creat Clear Calc 11.4 L eGFR 13 L* BUN/Creatinine Ratio 20 Glucose 360 H D Calculated Osmolality 342 H Lactic Acid Calcium 7.1 L Corrected Calcium 8.1 L Phosphorus 5.9 H Magnesium Total Bilirubin Direct Bilirubin AST ALT Alkaline Phosphatase Total Protein Albumin 2.7 L Beta-Hydroxybutyrate/Acetoacetate Misc Test Result 11/14/24 11/14/24 11/14/24 05:15 07:40 09:10 WBC 8.0 8.1 RBC 3.76 L 3.72 L Hgb 11.1 L D 11.0 L Hct 34.7 L 33.9 L MCV 92 91 MCH 29.5 29.6 MCHC 32.0 32.4 RDW Std Deviation 52.5 H 51.6 H Plt Count 51 L D 47 L Neut % (Auto) 93 H 92 H Lymph % (Auto) 4 L 5 L [place] % (Auto) 2 2 Eos % (Auto) 0 0 Baso % (Auto) 0 0 Neut # (Auto) 7.4 7.4 Lymph # (Auto) 0.3 L 0.4 L [place] # (Auto) 0.2 0.2 Eos # (Auto) 0.0 0.0 Baso # (Auto) 0.0 0.0 Immature Gran # (Auto) 0.04 H 0.03 H Absolute Nucleated RBC 0.03 H 0.04 H Immature Gran % 1 H 0 Nucleated RBC % 0 1 H Puncture Site ABG pH ABG pCO2 ABG pO2 ABG HCO3 ABG O2 Saturation ABG Base Excess FiO2 Sodium 149 H 146 H Potassium 5.6 H 4.4 D Chloride 116 H 110 H Carbon Dioxide 18.9 L 24.5 Anion Gap 14 12 BUN 95 H 66 H Creatinine 4.6 H* 3.3 H D Estim Creat Clear Calc 11.1 L 18.7 L eGFR 12 L* 19 L BUN/Creatinine Ratio 21 H 20 Glucose 298 H D 200 H D Calculated Osmolality 336 H 315 H Lactic Acid Calcium 6.9 L 7.0 L Corrected Calcium 7.8 L 7.9 L Phosphorus 5.6 H 3.8 Magnesium Total Bilirubin Direct Bilirubin AST ALT Alkaline Phosphatase Total Protein Albumin 2.9 L 2.9 L Beta-Hydroxybutyrate/Acetoacetate Misc Test Result Platelets confirmed Platelets confirmed 11/14/24 13:35 WBC RBC Hgb Hct MCV MCH MCHC RDW Std Deviation Plt Count Neut % (Auto) Lymph % (Auto) [place] % (Auto) Eos % (Auto) Baso % (Auto) Neut # (Auto) Lymph # (Auto) [place] # (Auto) Eos # (Auto) Baso # (Auto) Immature Gran # (Auto) Absolute Nucleated RBC Immature Gran % Nucleated RBC % Puncture Site ABG pH ABG pCO2 ABG pO2 ABG HCO3 ABG O2 Saturation ABG Base Excess FiO2 Sodium 145 Potassium 4.8 Chloride 110 H Carbon Dioxide 21.6 Anion Gap 13 BUN 56 H Creatinine 3.0 H Estim Creat Clear Calc 20.5 L eGFR 21 L BUN/Creatinine Ratio 19 Glucose 153 H Calculated Osmolality 307 H Lactic Acid Calcium 7.2 L Corrected Calcium 7.8 L Phosphorus 4.0 Magnesium Total Bilirubin 0.5 Direct Bilirubin 0.3 AST 65 H ALT 29 Alkaline Phosphatase 98 D Total Protein 5.4 L Albumin 3.3 L Beta-Hydroxybutyrate/Acetoacetate Misc Test Result ABG Interpretation ABG results: 11/12/24 11/12/24 11/13/24 15:00 22:55 01:40 ABG pH 7.19 L* 7.30 L D ABG pCO2 35 115 H* D ABG pO2 471 H 23 L* D ABG HCO3 14 L 57 H ABG O2 Saturation 100 H 38 L ABG Base Excess -14 L 26 H VBG pH 7.17 L VBG pCO2 22 L VBG pO2 92 H VBG Base Excess -19 L 11/13/24 11/13/24 11/13/24 03:18 12:06 23:50 ABG pH 7.33 L 7.40 7.28 L D ABG pCO2 32 D 37 31 L ABG pO2 202 H D 227 H D 195 H D ABG HCO3 17 L 23 15 L ABG O2 Saturation 100 H 100 H 100 H ABG Base Excess -8 L -2 -11 L VBG pH VBG pCO2 VBG pO2 VBG Base Excess 11/14/24 04:10 ABG pH 7.30 L ABG pCO2 35 ABG pO2 104 D ABG HCO3 17 L ABG O2 Saturation 99 H ABG Base Excess -9 L VBG pH VBG pCO2 VBG pO2 VBG Base Excess Assessment & Plan Additional Assessment & Plan Additional Plan: Mr. Robertson is a 78-year-old gentleman with multiple medical problems presented with- # ARF secondary to prerenal azotemia with diabetic ketoacidosis and septic shock-needing dialysis #Hyperkalemia #Hyperosmolar hyperchloremic hypernatremia -corrected for blood sugar 1200 is 164 #Hypermagnesemia #Hyperphosphatemia # Anion gap metabolic acidosis-intractable needing dialysis #Lactic acidosis. # Hypoxic respiratory failure # Metabolic encephalopathy Spoke to Dr. Muñoz- Patient on dialysis-has fluctuations in blood pressure needing more pressors. Hemodialysis for 3 hours, 250 flow-2K, ultrafiltration 0 L, Epogen 6000, no heparin ordered. Plan of care discussed with the dialysis nurse. Please see dialysis flowsheet for further details. Plan of care discussed with Dr. Muñoz and ICU team. Critical care time spent more than 35 minutes regarding plan of care and disease management. Prognosis remains guarded. Noted family made him DNR. Next dialysis scheduled for tomorrow. Procedures Arterial Line Size (Gauge): 20
[2024-11-14] MEDS: Norepinephrine/NS 16mg/250ml 16 MG/250 ML BAG 33.784 MG IV (17:55)
[2024-11-14] MEDS: ACETAMINOPHEN SOL 325 MG/10 ML UDC 650 MG GT (17:56)
[2024-11-14] MEDS: cefTRIAXone/D5w 1gm IV premix 50 ML IV (18:13)
[2024-11-14 18:27] LABS: Anion Gap 13 (7-16); BUN/Creatinine Ratio 18 Ratio (12-20); Blood Urea Nitrogen 59 mg/dL (9-23); Calcium 7.1 mg/dL (8.3-10.6); Chloride 111 mMol/L (98-107); Creatinine (Component) 3.3 mg/dL (0.6-1.3); Estimated Creatinine Clearance 18.7 mL/min (>60); Glucose 181 mg/dL (74-106); Osmolality,Calculated 310 (275-295); Potassium 4.9 mMol/L (3.4-5.1); Sodium 145 mMol/L (136-145); eGFR 19 See Note
[2024-11-14 18:29] LABS: Albumin, Serum 3.3 gm/dL (3.4-4.8); Calcium (Corrected) 7.7 mg/dL (8.5-10.1); Phosphorous 3.4 mg/dL (2.4-5.1)
[2024-11-15] VITALS (111 sets, daily range): BP systolic 80–198; BP diastolic 26–96; PULSE 74–98; RESP 16–26; TEMP 36.8–37.9; O2SAT 79–100
[2024-11-15] MEDS: Norepinephrine/NS 16mg/250ml 16 MG/250 ML BAG 22.089 MG IV (04:03)
[2024-11-15 04:44] LABS: Base Excess -5 (-3-3); HCO3 20 mEq/L (20-26); Inspired Oxygen, FIO2 30 %; O2 Saturation 96 % (91-98); PCO2 36 mmHg (32.0-48.0); PO2 74 mmHg (83-108); pH, Arterial 7.36 (7.35-7.45)
[2024-11-15 05:03] LABS: Allen Test Performed/OK; Puncture Site Right Femoral
[2024-11-15 05:29] LABS: Basophils # (Auto) 0.1 Thou/mm3 (0.0-0.2); Basophils % (Auto) 1 % (0-2.5); Eosinophils % (Auto) 0 % (0-10); Hematocrit 29.1 % (41.0-53.0); Hemoglobin 9.3 g/dL (13.5-16.0); Immature Granulocytes % (Auto) 1 % (0-0); Immature Granulocytes Auto 0.05 Thou/mm3 (0.00-0.00); Lymphocytes # (Auto) 0.4 Thou/mm3 (1.0-4.8); Lymphocytes % (Auto) 6 % (10-50); Mean Corpuscular Hemoglobin 29.4 pg (25.0-35.0); Mean Corpuscular Volume 92 fL (80-100); Monocytes # (Auto) 0.2 Thou/mm3 (0.0-0.8); Monocytes % (Auto) 3 % (0-12); Neutrophils # (Auto) 5.9 Thou/mm3 (1.8-7.7); Neutrophils % (Auto) 89 % (37-80); Nucleated Red Blood Cell # 0.05 Thou/mm3 (0.00-0.00); Nucleated Red Blood Cell % 1 /100 WBC (0); RDW Standard Deviation 52.3 fL (35.1-43.9); Red Blood Count 3.16 Miln/mm3 (4.50-5.90); White Blood Count 6.7 Thou/mm3 (3.8-10.6)
[2024-11-15 05:43] LABS: Platelet Count 23 Thou/mm3 (140-440)
[2024-11-15] MEDS: VASOPRESSIN IN NS IVPB 20 UNIT/100 ML BAG 9 UNIT IV ×2 (06:17→14:52)
[2024-11-15 06:59] LABS: Slide Review Platelets confirmed
[2024-11-15] MEDS: DEXTROSE 5%-NS 1,000 ML 125 ML IV (07:07)
[2024-11-15 07:20] LABS: Albumin, Serum 2.8 gm/dL (3.4-4.8); Anion Gap 11 (7-16); BUN/Creatinine Ratio 18 Ratio (12-20); Blood Urea Nitrogen 65 mg/dL (9-23); Calcium 7.4 mg/dL (8.3-10.6); Calcium (Corrected) 8.4 mg/dL (8.5-10.1); Carbon Dioxide 20.5 mMol/L (20.0-31.0); Chloride 114 mMol/L (98-107); Creatinine (Component) 3.6 mg/dL (0.6-1.3); Estimated Creatinine Clearance 17.7 mL/min (>60); Glucose 295 mg/dL (74-106); Osmolality,Calculated 318 (275-295); Potassium 5.4 mMol/L (3.4-5.1); Sodium 145 mMol/L (136-145); eGFR 17 See Note
[2024-11-15 07:32] LABS: Phosphorous 4.4 mg/dL (2.4-5.1)
[2024-11-15 07:50] LABS: Bilirubin,Direct 0.2 mg/dL (0.0-0.3); Bilirubin,Total 0.3 mg/dL (0.3-1.2)
[2024-11-15] MEDS: FAMOTIDINE INJ 10 MG/ML VIAL 2 ML 20 MG IVP (09:08)
[2024-11-15] MEDS: INSULIN GLARGINE (Lantus) 5 UNIT/0.05 ML (PER 5 UNITS) 40 UNIT SC (09:08)
[2024-11-15] MEDS: cefTRIAXone 2 GM in SODIUM CHLORIDE 0.9% (P) 50 ML IV (09:12)
[2024-11-15] MEDS: DOXYCYCLINE INJ 100 MG in SODIUM CHLORIDE 0.9% (P) 100 ML IV ×2 (09:13→20:15)
--- NOTE | 2024-11-15 10:32 | PD.RESPRO ---
Documentation for date of: 11/15/24 Subjective Subjective Interval history: Interval history: 11/13/2024; patient was seen and examined by bedside, overnight patient underwent HD dialysis catheter placement and arterial line placement, U-Tox was noted for methamphetamine, head CT was negative for acute bleed/midline shift, C/A/P CT was only noted for bibasilar pneumonia along with cholelithiasis and rectal wall thickening given concern for proctitis. Patient is intubated and sedated, there was concern for overcorrection of hyponatremia in light of rapid sodium correction there was concern for increased ICP/cerebral edema, Optic nerve US was done on patient's right eye, diameter was noted to be 8.5mm. Could not reach patient's family today 11/14/2024; Patient seen and examined by bedside, completed HD on high hemodynamic support. Ucx showed proteus mirabilis that was pansensitive, Zosyn was de-escalated to Ceftriaxone, with continuation of Doxycycline. Repeat Ocular US for optic nerve US noted for decrease in diameter from 8.5 to 4.7mm. discussed patient's condition with DNR status established. Insulin drip discontinued and patient was given Insulin glargine 30units, wbc count normalized, PLT count continues to drop but his 4T score showed low probability for HIT, will continue to monitor as thrombocytopneia likely to improve as sepsis resolves. 11/15/2024; patient seen and examined at bedside, sedation weaning to try to determine mental status, patient grimacing occasionally to pain otherwise not responsive. Thrombocytopenia likely multifactorial, however heparin stopped peripheral smear and heparin antibody test sent. Plan for HD today. Exam Vital Signs Temp Pulse Resp BP Pulse Ox O2 Del Method O2 Flow Rate 99.9 F 87 26 H 127/73 100 Mechanical Ventilation 15 11/15/24 08:00 11/15/24 10:01 11/14/24 11:54 11/15/24 10:01 11/15/24 10:01 11/15/24 08:00 11/12/24 15:25 FiO2 30 11/15/24 08:00 Constitutional Constitutional: no acute distress Comments: Intubated sedated Routine Respiratory Exam Respiratory: Present lungs clear and normal breath sounds Routine Cardiovascular Exam Cardiovascular: Present RRR Routine Abdominal Exam Abdominal: Present soft and normoactive bowel sounds Routine Extremities Exam Extremities: Present cyanosis Comments: Bilateral hands and feet cyanotic with cap refill Routine Neurological Exam Comments: Grimacing to painful stimulus, no threat response reflex, not following commands or moving extremities. Objective Labs 11/15/24 04:35 11/15/24 04:35 Labs: Laboratory Results - last 24 hr 11/14/24 11/14/24 11/15/24 13:35 17:49 04:35 WBC 6.7 RBC 3.16 L Hgb 9.3 L Hct 29.1 L MCV 92 MCH 29.4 MCHC 32.0 RDW Std Deviation 52.3 H Plt Count 23 L* D Neut % (Auto) 89 H Lymph % (Auto) 6 L [place] % (Auto) 3 Eos % (Auto) 0 Baso % (Auto) 1 Neut # (Auto) 5.9 Lymph # (Auto) 0.4 L [place] # (Auto) 0.2 Eos # (Auto) 0.0 Baso # (Auto) 0.1 Immature Gran # (Auto) 0.05 H Absolute Nucleated RBC 0.05 H Immature Gran % 1 H Nucleated RBC % 1 H Puncture Site Right Femoral ABG pH 7.36 ABG pCO2 36 ABG pO2 74 L D ABG HCO3 20 ABG O2 Saturation 96 ABG Base Excess -5 L FiO2 30 Sodium 145 145 145 Potassium 4.8 4.9 5.4 H D Chloride 110 H 111 H 114 H Carbon Dioxide 21.6 21.0 20.5 Anion Gap 13 13 11 BUN 56 H 59 H 65 H Creatinine 3.0 H 3.3 H 3.6 H Estim Creat Clear Calc 20.5 L 18.7 L 17.7 L eGFR 21 L 19 L 17 L BUN/Creatinine Ratio 19 18 18 Glucose 153 H 181 H 295 H D Calculated Osmolality 307 H 310 H 318 H Calcium 7.2 L 7.1 L 7.4 L Corrected Calcium 7.8 L 7.7 L 8.4 L Phosphorus 4.0 3.4 4.4 Total Bilirubin 0.5 0.3 Direct Bilirubin 0.3 0.2 AST 65 H ALT 29 Alkaline Phosphatase 98 D Total Protein 5.4 L Albumin 3.3 L 3.3 L 2.8 L D Misc Test Result Platelets confirmed ABG Interpretation ABG results: 11/12/24 11/12/24 11/13/24 15:00 22:55 01:40 ABG pH 7.19 L* 7.30 L D ABG pCO2 35 115 H* D ABG pO2 471 H 23 L* D ABG HCO3 14 L 57 H ABG O2 Saturation 100 H 38 L ABG Base Excess -14 L 26 H VBG pH 7.17 L VBG pCO2 22 L VBG pO2 92 H VBG Base Excess -19 L 11/13/24 11/13/24 11/13/24 03:18 12:06 23:50 ABG pH 7.33 L 7.40 7.28 L D ABG pCO2 32 D 37 31 L ABG pO2 202 H D 227 H D 195 H D ABG HCO3 17 L 23 15 L ABG O2 Saturation 100 H 100 H 100 H ABG Base Excess -8 L -2 -11 L VBG pH VBG pCO2 VBG pO2 VBG Base Excess 11/14/24 11/15/24 04:10 04:35 ABG pH 7.30 L 7.36 ABG pCO2 35 36 ABG pO2 104 D 74 L D ABG HCO3 17 L 20 ABG O2 Saturation 99 H 96 ABG Base Excess -9 L -5 L VBG pH VBG pCO2 VBG pO2 VBG Base Excess Quality Measures Quality Measures VTE prophylaxis Advance care planning discussed with:: spouse Assessment & Plan Assessment Current Active Medications: Generic Name Dose Route Start Last Admin Trade Name Freq PRN Reason Stop Dose Admin Acetaminophen 650 mg 11/13/24 13:41 11/13/24 14:10 Acetaminophen Supp [address] 12/13/24 13:40 650 mg Q6HR PRN Administration Pain Or Fever > 100.4 Protocol Acetaminophen 650 mg 11/14/24 17:47 11/14/24 17:56 Acetaminophen Hayde 325 Mg/10 Ml Udc GT 12/13/24 20:48 650 mg Q6HR PRN Administration Fever > 100.4 Dextrose 25 ml 11/15/24 08:58 Dextrose 50%-Water Inj 50 Ml Syringe IV 12/15/24 08:57 Q15MIN PRN BG 50-70 responsive npo pt Dextrose 50 ml 11/15/24 08:58 Dextrose 50%-Water Inj 50 Ml Syringe IV 12/15/24 08:57 Q15MIN PRN BG <50 OR BG <70 & pt unresponsive Famotidine 20 mg 11/14/24 09:30 11/15/24 09:08 Famotidine Inj 10 Mg/Ml Vial 2 Ml IVP 12/14/24 09:29 20 mg QDAY MARIE Administration Glucagon 1 mg 11/15/24 08:58 Glucagon Inj 1 Mg Vial IM Q15MIN PRN BG <70, and no IV access Heparin Sodium (Porcine) 2,500 unit 11/13/24 06:00 11/14/24 08:38 Heparin Sod Inj 1000 Unit/Ml Vial 10 Ml INDWELLCAT 11/27/24 05:59 2,500 unit PRN PRN Administration CLOTTING PREVENTION Heparin Sodium (Porcine) 2,500 unit 11/13/24 09:20 11/14/24 11:52 Heparin Sod Inj 1000 Unit/Ml Vial 10 Ml INDWELLCAT 11/27/24 09:19 2,500 unit PRN PRN Administration DIALYSIS Propofol 1,000 mg in 100 mls @ 2.177 mls/hr 11/12/24 18:01 11/15/24 09:00 Diprivan Ivpb IV 12/12/24 18:00 0 mcg/kg/min .Q24H PRN 0 mls/hr PER PROTOCOL Titration Protocol 5 MCG/KG/MIN Fentanyl Citrate 2,500 mcg in 250 mls @ 2.5 mls/hr 11/12/24 18:13 11/15/24 10:00 Sublimaze Inj 2,500 Mcg/250 Ml Bag IV 11/17/24 18:12 0 mcg/hr .Q24H PRN 0 mls/hr PER PROTOCOL Titration Protocol 25 MCG/HR Insulin Human Regular 100 unit in 100 mls @ 7.258 mls/hr 11/12/24 19:36 11/14/24 16:00 Myxredlin IV 12/12/24 19:35 0 unit/kg/hr .[id number] PRN 0 mls/hr PER PROTOCOL Titration Protocol 0.1 UNIT/KG/HR Vasopressin/Sodium Chloride 20 unit in 100 mls @ 9 mls/hr 11/12/24 22:30 11/15/24 06:17 Vasostrict/Ns Ivpb IV 12/12/24 22:29 0.03 unit/min .[id number] PRN 9 mls/hr PER PROTOCOL Administration Protocol 0.03 UNIT/MIN Albumin Human 25 gm in 100 mls @ 100 mls/min 11/13/24 04:54 11/14/24 17:00 Albuminar-25 Ivpb IV Infused PRN PRN Infusion DIALYSIS Doxycycline Hyclate 100 mg/ 100 mls @ 100 mls/hr 11/13/24 15:00 11/15/24 10:23 Sodium Chloride IV 11/20/24 14:59 Infused BID MARIE Infusion Norepinephrine Bitartrate 16 mg in 250 mls @ 3.248 mls/hr 11/14/24 11:01 11/15/24 10:00 Levophed In Ns 16mg/250ml IV 12/13/24 01:46 0.24 mcg/kg/min .Q24H PRN 15.593 mls/hr PER PROTOCOL Titration Protocol 0.05 MCG/KG/MIN Ceftriaxone Sodium 2 gm/ 50 mls @ 100 mls/hr 11/15/24 09:00 11/15/24 10:23 Sodium Chloride IV 11/22/24 08:59 Infused QDAY MARIE Infusion Insulin Glargine 40 unit 11/15/24 09:00 11/15/24 09:08 Insulin Glargine (Lantus) 5 Unit/0.05 Ml (Per 5 Units) SC 12/15/24 08:59 40 unit QDAY MARIE Administration Insulin Human Lispro 0 unit 11/15/24 12:00 Insulin Lispro (Admelog) 1 Unit/0.01 Ml Unit SC 12/15/24 11:59 Q6HR MARIE Protocol Plan 78 year old male patient with PMHx of CABG, CVA, HTN, HLD, and meth/fentanyl use BIBA after he was found at home non-responsive at home, no further hx obtained at time of arrival, patient was admitted to ICU for further evaluation and care of septic shock/ DKA with severe metabolic derangements, and NEELAM. CT imaging of head, chest/abdomen/pelvis were pending. 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 (+14 L since admission) Maintain MAP >65. Continue ceftriaxone and doxycycline F/U Bcx/Ucx/Sputum Cx Resp #Acute hypoxic respiratory failure 2/2 septic shock and DKA Intubated. F/U Bcx, Ucx, Sputum Cx Adjust vent setting accordingly. Continue antibiotics Renal #ARF 2/2 DKA and septic shock #Hyperkalemia #Hyepr osmolar hyperchloremic hypernatremia #Hypermagnesemia #Hyperphsphatemia #AGMA (resolved) #Uremia #Lactic acidosis. Na 145, K5.4, BUN 65 -Volume resuscitated -Q4hr renal panel. -Max correction 6-8 Meq 24 hrs, .5/hr for serum Na -Replete electrolytes as needed. Continue HD as needed Nephrology consulted, recs appreciated. ID #Septic shock 2/2 UTI versus pneumonia -Fluid resuscitated -On ceftriaxone doxycycline -F/u Bcx/Ucx/ Sputum Cx Heme #Anemia likely 2/2 CKD vs malnutrition #Leukocytosis 2/2 Pyelonephritis #Thrombocytopenia in setting of severe sepsis 2/2 E. Coli bacteremia/Pylonephritis -DIC possible, but less likely, no evidence of clotting ? Possible HIT 4Tcore of 5 platelets 23 today, heparin stopped ? Follow-up heparin antibody and peripheral smear -Suspect improvement as overall condition improves -Hemodynamically stable, no indication to transfuse at the moment. Endo #DKA (resolved) #AGMA (resolved) #Diabetes ? Continue subcutaneous insulin with sliding scale GI #Elevated Lipase CT negative for signs of pancreatitis DVT prophylaxis: SCDs Diet: OG tube Ferraro: + Lines: PIV, RIJ CODE STATUS: DNR Patient seen and assessed with Dr. Muñoz Attending Provider Attestation/Addendum Patient seen and examined with above resident, Fabiano Kim DO. I agree with the findings, assessment, and plan of care as documented except for any differences below. Patient significantly improved and now on low-dose vasopressor support. Will begin weaning sedation and assess neurologic status. Patient is appropriately opening eyes and responsive to verbal stimuli but not following commands at this time. No other evidence of focal deficit as he is unable to participate at this point with a complete neurologic examination. Patient is able to track voice and does turn towards me when I say his name. Patient will undergo hemodialysis again today. Will continue on vasopressor support to ensure he is able to adequately perform HD run. Patient remains afebrile with adequate source control from aspiration pneumonia. Cyanosis slowly improving but now hyperemia on affected areas. There is no evidence of any gangrene at this point we will continue to surveil closely. Blood sugars and osmolarity continue to improve gradually. Maintain normal serum sodium on the higher side as this is a major component of serum osmolarity. Uremia continues to improve with serial dialysis. No other major electrolyte abnormalities and patient remains off of any additional IV fluids. He has had some urine output, approximately 200 cc over 12 hours and remains in oliguric phase of ATN. Patient's family not at bedside this morning for update, but will contact them by telephone if the does not return to bedside this afternoon. Total critical care time: I personally spent 35 minutes for review of physiologic parameters, directing plan of care throughout the day, coordination of care with other subspecialists. This is exclusive of time spent teaching of staff or performing separate billable procedures. Patient continues require critical care services for acute hypoxic respiratory failure secondary to aspiration pneumonia, septic shock, acute renal failure, acute encephalopathy secondary to hyperosmolar/hyperglycemic nonketotic state. Patient remains at high risk for increased morbidity and mortality requiring close monitoring only available in the intensive care unit.
[2024-11-15] MEDS: HEPARIN SOD INJ 1000 UNIT/ML VIAL 10 ML 2500 UNIT INDWELLCAT ×2 (11:00→14:23)
[2024-11-15 11:07] LABS: Path Review Blood Smear Sent to Pathologist
[2024-11-15] MEDS: INSULIN LISPRO (AdmeLOG) 1 UNIT/0.01 ML UNIT SC (11:54)
--- NOTE | 2024-11-15 14:58 | PC.SS ---
Update: Patient received dialysis session today.
--- NOTE | 2024-11-15 14:59 | PC.SS ---
Update: Patient remains intubated. Plan is to attempt extubation tomorrow. Patient on pressor support. No feedings at current time. Patient receiving dialysis.
--- NOTE | 2024-11-15 17:40 | PC.NURSE ---
Kyle Nurse gave pt number Omero , or Julia (friend) [phone]
--- NOTE | 2024-11-15 19:56 | PD.NEPHPROG ---
Documentation for date of: 11/15/24 Subjective Subjective Interval history: Chart review done Mr. Robertson is a 78-year-old gentleman with extensive past medical history of hypertension, dyslipidemia, coronary artery disease status post CABG, stroke, drug abuse presented to the emergency department brought in by ambulance with altered mental status. In the emergency department patient was hypothermic with a temp of 93.9. Patient was given Joby hugger. Labs showed WBC 16, hemoglobin 12.7, platelets 208. ABG showing pH 7.19, pCO2 35, pO2 471, HCO3 14. Chemistry showing sodium 141, potassium 6.3, bicarbonate less than 10, BUN 117, creatinine 5.6, glucose 1213, lactic acid 4.8, phosphorus 11.5, magnesium 3.5, AST 46, ALT 27, alk phos 144, CK5 020, troponin 0.045, albumin 2.9, Pro-[place] 49.3, lipase 292, beta hydroxy 3.3 urinalysis shows significant pyuria, urine tox screen positive for amphetamines. Chest x-ray showed no pneumonia. CT abdomen showed pneumonia, proctitis, kidneys with no hydronephrosis. Patient received 3L of NS at ED, calcium gluconate, ceftriaxone. At ED patient's BP dropped significantly after being warmed prompting initiation of Levophed via peripheral line until central line was placed, patient was also intubated for airway protection. Patient was admitted to ICU for further evaluation and care of septic shock/ DKA with severe metabolic derangements, and NEELAM. CT imaging of head, chest/abdomen/pelvis were pending. Patient was started on insulin. Renal consultation requested for metabolic acidosis, acute renal failure. Currently seen in the emergency department. Dr. Muñoz and team are planning to place a central line. 11/13/2024 patient currently seen in ICU. Urine output still remains very low. This morning patient had significant electrolyte imbalance, intractable metabolic acidosis that I had to do emergency dialysis. However osmolality dropped significantly and I spoke to Dr. Muñoz-planning for 3% hypertonic saline. Patient remains ventilated. 11/15/2023 patient currently seen in ICU. On pressors. Remains on the ventilator. Currently on dialysis. WBC 6.7, hemoglobin 9.3, platelets 23. Sodium 145, potassium 5.4, BUN 65, creatinine 3.6, blood sugar 395, osmolality 318, calcium 8.4, LFTs normal, albumin 2.8, echocardiogram showed ejection fraction 50 to 55%. Sputum cultures positive for Staph aureus. Urine cultures positive for Proteus mirabilis. Patient currently on ceftriaxone Review of Systems Review of Systems ROS Unobtainable: unobtainable due to medical condition and due to endotracheal tube Exam Vital Signs Temp Pulse Resp BP Pulse Ox O2 Del Method O2 Flow Rate 37.9 C 83 23 H 124/73 100 Mechanical Ventilation 15 11/15/24 16:00 11/15/24 19:45 11/15/24 14:22 11/15/24 19:45 11/15/24 19:45 11/15/24 16:00 11/12/24 15:25 FiO2 30 11/15/24 16:00 Narrative Exam GENERAL APPEARANCE: Patient in ICU. Intubated, sedated Right IJ central line Right femoral Vas-Cath CARDIOVASCULAR: Heart regular, no murmurs LUNGS/CHEST: Few rhonchi noted bilaterally ABDOMEN: Soft, nontender, nondistended. No masses. Normal bowel sounds. EXTREMITIES: No edema, clubbing or cyanosis. SKIN: Significant cyanotic changes noted in both hands and legs. MUSCULOSKELETAL: In bed NEUROLOGICAL : Intubated, sedated Objective Labs 11/16/24 05:00 11/15/24 04:35 Labs: Laboratory Results - last 24 hr 11/15/24 04:35 WBC 6.7 RBC 3.16 L Hgb 9.3 L Hct 29.1 L MCV 92 MCH 29.4 MCHC 32.0 RDW Std Deviation 52.3 H Plt Count 23 L* D Neut % (Auto) 89 H Lymph % (Auto) 6 L [place] % (Auto) 3 Eos % (Auto) 0 Baso % (Auto) 1 Neut # (Auto) 5.9 Lymph # (Auto) 0.4 L [place] # (Auto) 0.2 Eos # (Auto) 0.0 Baso # (Auto) 0.1 Immature Gran # (Auto) 0.05 H Absolute Nucleated RBC 0.05 H Immature Gran % 1 H Nucleated RBC % 1 H Smear Path Review Sent to Pathologist Puncture Site Right Femoral ABG pH 7.36 ABG pCO2 36 ABG pO2 74 L D ABG HCO3 20 ABG O2 Saturation 96 ABG Base Excess -5 L FiO2 30 Sodium 145 Potassium 5.4 H D Chloride 114 H Carbon Dioxide 20.5 Anion Gap 11 BUN 65 H Creatinine 3.6 H Estim Creat Clear Calc 17.7 L eGFR 17 L BUN/Creatinine Ratio 18 Glucose 295 H D Calculated Osmolality 318 H Calcium 7.4 L Corrected Calcium 8.4 L Phosphorus 4.4 Total Bilirubin 0.3 Direct Bilirubin 0.2 Albumin 2.8 L D Misc Test Result Platelets confirmed ABG Interpretation ABG results: 11/12/24 11/12/24 11/13/24 15:00 22:55 01:40 ABG pH 7.19 L* 7.30 L D ABG pCO2 35 115 H* D ABG pO2 471 H 23 L* D ABG HCO3 14 L 57 H ABG O2 Saturation 100 H 38 L ABG Base Excess -14 L 26 H VBG pH 7.17 L VBG pCO2 22 L VBG pO2 92 H VBG Base Excess -19 L 11/13/24 11/13/24 11/13/24 03:18 12:06 23:50 ABG pH 7.33 L 7.40 7.28 L D ABG pCO2 32 D 37 31 L ABG pO2 202 H D 227 H D 195 H D ABG HCO3 17 L 23 15 L ABG O2 Saturation 100 H 100 H 100 H ABG Base Excess -8 L -2 -11 L VBG pH VBG pCO2 VBG pO2 VBG Base Excess 11/14/24 11/15/24 04:10 04:35 ABG pH 7.30 L 7.36 ABG pCO2 35 36 ABG pO2 104 D 74 L D ABG HCO3 17 L 20 ABG O2 Saturation 99 H 96 ABG Base Excess -9 L -5 L VBG pH VBG pCO2 VBG pO2 VBG Base Excess Assessment & Plan Additional Assessment & Plan Additional Plan: Mr. Robertson is a 78-year-old gentleman with multiple medical problems presented with- # ARF secondary to prerenal azotemia with diabetic ketoacidosis and septic shock-needing dialysis #Hyperkalemia #Hyperosmolar hyperchloremic hypernatremia -corrected for blood sugar 1200 is 164 --- slowly improved to 145 #Hypermagnesemia #Hyperphosphatemia # Anion gap metabolic acidosis-intractable needing dialysis #Lactic acidosis. # Hypoxic respiratory failure # Metabolic encephalopathy Spoke to Dr. Muñoz- This morning patient received dialysis. Hemodialysis for 3 hours, 2K, ultrafiltration 0 L, Epogen 6000, no heparin ordered. Plan of care discussed with the dialysis nurse. Please see dialysis flowsheet for further details. Plan of care discussed with Dr. Muñoz and ICU team. Critical care time spent more than 35 minutes regarding plan of care and disease management. Patient with significant cyanotic changes in the lower extremities -On pressors. Prognosis remains guarded. Procedures Arterial Line Size (Gauge): 20
[2024-11-15] MEDS: Norepinephrine/NS 16mg/250ml 16 MG/250 ML BAG 11.694 MG IV (20:35)
[2024-11-16] VITALS (128 sets, daily range): BP systolic 81–158; BP diastolic 42–87; PULSE 74–91; RESP 17–29; TEMP 36.2–37; O2SAT 80–100
[2024-11-16] MEDS: DEXTROSE 50%-WATER INJ 50 ML SYRINGE IV ×3 (00:27→07:45)
[2024-11-16] MEDS: VASOPRESSIN IN NS IVPB 20 UNIT/100 ML BAG 9 UNIT IV ×2 (03:50→15:33)
[2024-11-16 04:37] LABS: Base Excess -1 (-3-3); HCO3 21 mEq/L (20-26); Inspired Oxygen, FIO2 30 %; O2 Saturation 100 % (91-98); PCO2 28 mmHg (32.0-48.0); PO2 114 mmHg (83-108)
[2024-11-16 04:39] LABS: Allen Test Not Performed; Puncture Site Arterial Line
[2024-11-16 05:19] LABS: Basophils % (Auto) 1 % (0-2.5); Eosinophils % (Auto) 0 % (0-10); Hematocrit 27.2 % (41.0-53.0); Immature Granulocytes % (Auto) 1 % (0-0); Immature Granulocytes Auto 0.04 Thou/mm3 (0.00-0.00); Lymphocytes # (Auto) 0.5 Thou/mm3 (1.0-4.8); Lymphocytes % (Auto) 9 % (10-50); Mean Corpuscular HGB Conc 33.1 g/dl (31.0-37.0); Mean Corpuscular Hemoglobin 29.5 pg (25.0-35.0); Mean Corpuscular Volume 89 fL (80-100); Monocytes # (Auto) 0.2 Thou/mm3 (0.0-0.8); Monocytes % (Auto) 4 % (0-12); Neutrophils # (Auto) 4.7 Thou/mm3 (1.8-7.7); Neutrophils % (Auto) 86 % (37-80); Nucleated Red Blood Cell # 0.04 Thou/mm3 (0.00-0.00); Nucleated Red Blood Cell % 1 /100 WBC (0); RDW Standard Deviation 49.6 fL (35.1-43.9); Red Blood Count 3.05 Miln/mm3 (4.50-5.90); White Blood Count 5.5 Thou/mm3 (3.8-10.6)
[2024-11-16 05:20] LABS: Platelet Count 17 Thou/mm3 (140-440)
[2024-11-16 05:27] LABS: Slide Review Platelets confirmed
[2024-11-16 07:16] LABS: Alanine Aminotransferase 46 U/L (10-49); Albumin, Serum 2.8 gm/dL (3.4-4.8); Albumin/Globulin Ratio 1.3 (1.2-2.2); Alkaline Phosphatase 134 U/L (46-116); Anion Gap 12 (7-16); Aspartate Amino Transferase 82 U/L (0-34); BUN/Creatinine Ratio 17 Ratio (12-20); Bilirubin,Total 0.3 mg/dL (0.3-1.2); Blood Urea Nitrogen 53 mg/dL (9-23); Calcium 7.2 mg/dL (8.3-10.6); Calcium (Corrected) 8.2 mg/dL (8.5-10.1); Chloride 113 mMol/L (98-107); Creatinine (Component) 3.1 mg/dL (0.6-1.3); Estimated Creatinine Clearance 20.5 mL/min (>60); Globulin 2.1 gm/dL (2.3-3.5); Glucose 65 mg/dL (74-106); Osmolality,Calculated 301 (275-295); Potassium 3.9 mMol/L (3.4-5.1); Sodium 145 mMol/L (136-145); Total Protein 4.9 gm/dL (5.7-8.2); eGFR 20 See Note
--- NOTE | 2024-11-16 07:29 | XR_ITS ---
Examination: AP chest single view Technique one AP portable semiupright chest single view Exam date and time: November 16, 2024 0751 hours Comparison November 13, 2024 INDICATIONS: Hypoxic respiratory failure this week post intubation FINDINGS: Opacity left base consistent with pneumonia Normal heart size Tip approximately 5 cm above elan Right internal jugular central line tip SVC satisfactory position The orogastric tube is in the stomach, the tip is below the level of the film IMPRESSION: Interval left base pneumonia, consider aspiration pneumonia
[2024-11-16] MEDS: DOXYCYCLINE INJ 100 MG in SODIUM CHLORIDE 0.9% (P) 100 ML IV (08:16)
[2024-11-16] MEDS: cefTRIAXone 2 GM in SODIUM CHLORIDE 0.9% (P) 50 ML IV (08:18)
[2024-11-16] MEDS: FAMOTIDINE INJ 10 MG/ML VIAL 2 ML 20 MG IVP (08:18)
[2024-11-16] MEDS: DEXTROSE 50%-WATER INJ 50 ML SYRINGE 25 ML IV (11:14)
[2024-11-16] MEDS: AMPICILLIN/SULBAC INJ 3 GM in SODIUM CHLORIDE 0.9% (P) 100 ML IV ×2 (11:24→20:01)
[2024-11-16] MEDS: DEXTROSE 5%-0.45% NS 1,000 ML 75 ML IV (11:52)
--- NOTE | 2024-11-16 12:02 | ESPR_ITS ---
<Statement entered by Jovany Arambula MD - 11/16/24 14:43> In the morning patient had low blood glucose, given 1 amp of D50, glargine was held. Patient was extubated and placed on 2L oxymask, maintaining good saturation of 100%. Levophed was discontinued, patient maintains MAP between 65- 70 on vasopressin only. Will attempt to discontinue all pressors by tomorrow if tolerated. Sedation is discontinued. Possible downgrade to medical floor tomorrow if off pressors. Plan of care discussed with attending Dr. Muñoz. Jovany Arambula MD, PGY 2. Disclaimer: This note was dictated by speech recognition. Minor errors in application development team lead may be present due to voice recognition software. Documentation for date of: 11/16/24 Subjective Subjective Interval history: Interval history: 11/13/2024; patient was seen and examined by bedside, overnight patient underwent HD dialysis catheter placement and arterial line placement, U-Tox was noted for methamphetamine, head CT was negative for acute bleed/midline shift, C/A/P CT was only noted for bibasilar pneumonia along with cholelithiasis and rectal wall thickening given concern for proctitis. Patient is intubated and sedated, there was concern for overcorrection of hyponatremia in light of rapid sodium correction there was concern for increased ICP/cerebral edema, Optic nerve US was done on patient's right eye, diameter was noted to be 8.5mm. Could not reach patient's family today 11/14/2024; Patient seen and examined by bedside, completed HD on high hemodynamic support. Ucx showed proteus mirabilis that was pansensitive, Zosyn was de-escalated to Ceftriaxone, with continuation of Doxycycline. Repeat Ocular US for optic nerve US noted for decrease in diameter from 8.5 to 4.7mm. discussed patient's condition with DNR status established. Insulin drip discontinued and patient was given Insulin glargine 30units, wbc count normalized, PLT count continues to drop but his 4T score showed low probability for HIT, will continue to monitor as thrombocytopneia likely to improve as sepsis resolves. 11/15/2024; patient seen and examined at bedside, sedation weaning to try to determine mental status, patient grimacing occasionally to pain otherwise not responsive. Thrombocytopenia likely multifactorial, however heparin stopped peripheral smear and heparin antibody test sent. Plan for HD today. 11/16/2024: Patient seen and examined at bedside, was weaned off of sedation yesterday, currently spontaneous breathing trial in progress, patient's mentation has improved remarkably, patient is responding to commands, tracks with eyes, plan to extubate patient today. Overnight patient did have episode of hypoglycemia, blood glucose 66 this morning, was given 2 Amps of D50, started on feeding via NG tube, will hold Lantus. Will continue pressors with goal to maintain MAP more than 70 underlying concern of cerebral edema, will assess neurological symptom comprehensively once patient is more awake and alert. Sputum culture significant for staph, urine culture shows pansensitive Proteus patient's antibiotic regimen optimized to Unasyn, ceftriaxone and doxycycline discontinued. Plan is to extubate patient and monitor for now, will maintain MAP more than 70, continue pressors. Exam Vital Signs Temp Pulse Resp BP Pulse Ox O2 Del Method O2 Flow Rate 98.3 F 81 19 104/62 100 Mechanical Ventilation 3 11/16/24 08:00 11/16/24 09:49 11/16/24 09:49 11/16/24 09:45 11/16/24 09:49 11/16/24 08:00 11/16/24 09:49 FiO2 30 11/16/24 08:00 Narrative Exam Physical Exam General: Awake, responds to pain, tracks movements with eyes. Intubated. HEENT: Normocephalic, atraumatic, Right internal jugular line and ET tube noted. Heart: Regular rate and rhythm, no murmurs. Lungs: Clear to auscultation with no wheezing or crackles. Abdomen: Soft, nondistended, nontender, positive bowel sounds. Neurologic: Awake, responds to pain, tracks movements with eyes, responds to commands. Extremities: Muscle wasting noted on BLE. BUE and BLE purpulish discoloration noted along with cold extremities, no edema or rash. Right femural non-tunneled dialysis catheter, Left femoral art line noted. Objective Labs 11/16/24 05:00 11/16/24 05:00 Labs: Laboratory Results - last 24 hr 11/16/24 11/16/24 11/16/24 04:22 05:00 09:55 WBC 5.5 RBC 3.05 L Hgb 9.0 L Hct 27.2 L MCV 89 MCH 29.5 MCHC 33.1 RDW Std Deviation 49.6 H Plt Count 17 L* D Neut % (Auto) 86 H Lymph % (Auto) 9 L [place] % (Auto) 4 Eos % (Auto) 0 Baso % (Auto) 1 Neut # (Auto) 4.7 Lymph # (Auto) 0.5 L [place] # (Auto) 0.2 Eos # (Auto) 0.0 Baso # (Auto) 0.0 Immature Gran # (Auto) 0.04 H Absolute Nucleated RBC 0.04 H Immature Gran % 1 H Nucleated RBC % 1 H Puncture Site Arterial Line ABG pH 7.50 H D ABG pCO2 28 L ABG pO2 114 H D ABG HCO3 21 ABG O2 Saturation 100 H ABG Base Excess -1 FiO2 30 Sodium 145 Potassium 3.9 D Chloride 113 H Carbon Dioxide 20.0 Anion Gap 12 BUN 53 H Creatinine 3.1 H D Estim Creat Clear Calc 20.5 L eGFR 20 L BUN/Creatinine Ratio 17 Glucose 65 L D Calculated Osmolality 301 H Lactic Acid 2.0 Calcium 7.2 L Corrected Calcium 8.2 L Total Bilirubin 0.3 AST 82 H ALT 46 Alkaline Phosphatase 134 H D Total Protein 4.9 L Albumin 2.8 L Globulin 2.1 L Albumin/Globulin Ratio 1.3 Misc Test Result Platelets confirmed ABG Interpretation ABG results: 11/12/24 11/12/24 11/13/24 15:00 22:55 01:40 ABG pH 7.19 L* 7.30 L D ABG pCO2 35 115 H* D ABG pO2 471 H 23 L* D ABG HCO3 14 L 57 H ABG O2 Saturation 100 H 38 L ABG Base Excess -14 L 26 H VBG pH 7.17 L VBG pCO2 22 L VBG pO2 92 H VBG Base Excess -19 L 11/13/24 11/13/24 11/13/24 03:18 12:06 23:50 ABG pH 7.33 L 7.40 7.28 L D ABG pCO2 32 D 37 31 L ABG pO2 202 H D 227 H D 195 H D ABG HCO3 17 L 23 15 L ABG O2 Saturation 100 H 100 H 100 H ABG Base Excess -8 L -2 -11 L VBG pH VBG pCO2 VBG pO2 VBG Base Excess 11/14/24 11/15/24 11/16/24 04:10 04:35 04:22 ABG pH 7.30 L 7.36 7.50 H D ABG pCO2 35 36 28 L ABG pO2 104 D 74 L D 114 H D ABG HCO3 17 L 20 21 ABG O2 Saturation 99 H 96 100 H ABG Base Excess -9 L -5 L -1 VBG pH VBG pCO2 VBG pO2 VBG Base Excess Quality Measures Quality Measures VTE prophylaxis Advance care planning discussed with:: patient Assessment & Plan Assessment Current Active Medications: Generic Name Dose Route Start Last Admin Trade Name Freq PRN Reason Stop Dose Admin Acetaminophen 650 mg 11/13/24 13:41 11/13/24 14:10 Acetaminophen Supp 650 Mg Supp OK 12/13/24 13:40 650 mg Q6HR PRN Administration Pain Or Fever > 100.4 Protocol Acetaminophen 650 mg 11/14/24 17:47 11/14/24 17:56 Acetaminophen Hayde 325 Mg/10 Ml Udc GT 12/13/24 20:48 650 mg Q6HR PRN Administration Fever > 100.4 Dextrose 25 ml 11/15/24 08:58 11/16/24 11:14 Dextrose 50%-Water Inj 50 Ml Syringe IV 12/15/24 08:57 25 ml Q15MIN PRN Administration BG 50-70 responsive npo pt Dextrose 50 ml 11/15/24 08:58 11/16/24 05:10 Dextrose 50%-Water Inj 50 Ml Syringe IV 12/15/24 08:57 50 ml Q15MIN PRN Administration BG <50 OR BG <70 & pt unresponsive Famotidine 20 mg 11/14/24 09:30 11/16/24 08:18 Famotidine Inj 10 Mg/Ml Vial 2 Ml IVP 12/14/24 09:29 20 mg QDAY MARIE Administration Glucagon 1 mg 11/15/24 08:58 Glucagon Inj 1 Mg Vial IM Q15MIN PRN BG <70, and no IV access Heparin Sodium (Porcine) 2,500 unit 11/13/24 06:00 11/15/24 11:00 Heparin Sod Inj 1000 Unit/Ml Vial 10 Ml INDWELLCAT 11/27/24 05:59 2,500 unit PRN PRN Administration CLOTTING PREVENTION Heparin Sodium (Porcine) 2,500 unit 11/13/24 09:20 11/15/24 14:23 Heparin Sod Inj 1000 Unit/Ml Vial 10 Ml INDWELLCAT 11/27/24 09:19 2,500 unit PRN PRN Administration DIALYSIS Propofol 1,000 mg in 100 mls @ 2.177 mls/hr 11/12/24 18:01 11/15/24 09:00 Diprivan Ivpb IV 12/12/24 18:00 0 mcg/kg/min .Q24H PRN 0 mls/hr PER PROTOCOL Titration Protocol 5 MCG/KG/MIN Fentanyl Citrate 2,500 mcg in 250 mls @ 2.5 mls/hr 11/12/24 18:13 11/15/24 10:00 Sublimaze Inj 2,500 Mcg/250 Ml Bag IV 11/17/24 18:12 0 mcg/hr .Q24H PRN 0 mls/hr PER PROTOCOL Titration Protocol 25 MCG/HR Insulin Human Regular 100 unit in 100 mls @ 7.258 mls/hr 11/12/24 19:36 11/14/24 16:00 Myxredlin IV 12/12/24 19:35 0 unit/kg/hr .[id number] PRN 0 mls/hr PER PROTOCOL Titration Protocol 0.1 UNIT/KG/HR Vasopressin/Sodium Chloride 20 unit in 100 mls @ 9 mls/hr 11/12/24 22:30 11/16/24 07:00 Vasostrict/Ns Ivpb IV 12/12/24 22:29 0.03 unit/min .[id number] PRN 9 mls/hr PER PROTOCOL Titration Protocol 0.03 UNIT/MIN Albumin Human 25 gm in 100 mls @ 100 mls/min 11/13/24 04:54 11/14/24 17:00 Albuminar-25 Ivpb IV Infused PRN PRN Infusion DIALYSIS Norepinephrine Bitartrate 16 mg in 250 mls @ 3.248 mls/hr 11/14/24 11:01 11/16/24 10:00 Levophed In Ns 16mg/250ml IV 12/13/24 01:46 0.04 mcg/kg/min .Q24H PRN 2.599 mls/hr PER PROTOCOL Titration Protocol 0.05 MCG/KG/MIN Ampicillin Sodium/Sulbactam 100 mls @ 200 mls/hr 11/16/24 12:00 11/16/24 11:24 Sodium 3 gm/ Sodium Chloride IV 11/23/24 11:59 200 mls/hr Q12HR MARIE Administration Dextrose/Sodium Chloride 1,000 mls @ 75 mls/hr 11/16/24 11:43 11/16/24 11:52 D5-1/2ns IV 12/16/24 11:42 75 mls/hr BID MARIE Administration Insulin Glargine 40 unit 11/15/24 09:00 11/16/24 08:11 Insulin Glargine (Lantus) 5 Unit/0.05 Ml (Per 5 Units) SC 12/15/24 08:59 Not Given QDAY MARIE Insulin Human Lispro 0 unit 11/15/24 12:00 11/16/24 11:21 Insulin Lispro (Admelog) 1 Unit/0.01 Ml Unit SC 12/15/24 11:59 Not Given Q6HR MARIE Protocol Plan Assessment and Plan Summary: Mr. Robertson is a 78-year old male patient with PMHx of CABG, CVA, HTN, HLD, and meth/fentanyl use BIBA after he was found at home non-responsive at home, no further hx obtained at time of arrival, patient was admitted to ICU for further evaluation and care of septic shock, HHS with severe metabolic derangements, and NEELAM. Patient was intubated for airway protection, central line was placed in right IJ, ICU course was complicated as patient developed acute renal failure, had dialysis catheter placed, patient was started on hypertonic saline, there was concern of increased intracranial pressure/cerebral edema optic nerve ultrasound done on patient's right eye showed diameter 8.5 mm which eventually improved to 4.7 mm and since platelet count dropped significantly, low probability of HIT, antibody send out, will continue to monitor. 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 CT head 11/12 Negative for acute hemorrhage, mass effect or midline shift. Plan: Will continue to hold sedation, spontaneous breathing trial in progress. #Cerebral Edema Concern of cerebral edema due to rapid correction of hyponatremia and hyperglycemia causing significant drop in osmolality Optic nerve ultrasound done on patient's right eye showed diameter 8.5 mm which eventually improved to 4.7 mm Was given hypertonic saline. Plan: Maintain MAP more than 70 Will do complete neurological examination once patient is more awake # Methamphetamine dependence Urine tox screen was positive for methamphetamine, patient has history of drug use [facility] #Septic Shock Source: Bibasilar pneumonia versus urinary Chest x-ray 11/12 shows early bibasilar pneumonia, CT chest abdomen pelvis without contrast 11/12 shows bibasilar pneumonia, cholelithiasis and abundant stool in rectum, suspicion of proctitis. UA 11/12 significant for urine protein 4+, glucose 4+, ketones 1+ 2+, leukocyte esterase positive, bacteria 1+, RBC 16, WBC 3826 Echo Findings: Normal LV size and function. Mild LVH. Estimated EF 50-55%, Normal RV size and function. Trace MR, TR. no heart failure noted Blood culture negative urine culture Proteus mirabilis prescription to ceftriaxone, sputum gram stain culture shows Staphylococcus aureus sensitive to ceftriaxone. Nasal MRSA screen negative Patient received adequate fluid resuscitation, started on pressors Levophed and vasopressin Patient was on ceftriaxone in ED on 11/12/24, Zosyn 10/3024-11/14/24, ceftriaxone 11/14/24-11/16/24 and doxycycline 11/13/24-11/16/24. Plan: Maintain MAP >70. Started on Unasyn 11/16/24 Discontinued ceftriaxone and doxycycline Resp #Acute hypoxic respiratory failure 2/2 septic shock and HHS Patient unable to protect airway, intubated 11/12. Weaned off of sedation. spontaneous breathing trial in progress. Plan to extubate patient today. Continue Unasyn for pneumonia Renal # Acute renal failure in setting of septic shock # Suspicion of ATN # Hyperkalemia # Hyperosmolar hyperchloremic hypernatremia # Hypermagnesemia # Hyperphsphatemia # AGMA (resolved) # Uremia # Lactic acidosis. Patient did receive aggressive volume resuscitation and septic shock and HHS Had decreased urine output, temporary dialysis catheter placed 11/13. Patient received dialysis treatment 11/13, 11/14, 11/15. Patient's urine output improving, urine output 232cc noted in the last 24 hours Hypernatremia was corrected with a goal of 6-8 in 24 hours Plan Continue hemodialysis as needed Correct and replace electrolytes as needed Monitor intake and output strictly Renally dose medications Avoid nephrotoxic agents Nephrology consulted, recs appreciated. ID # Septic shock in setting of UTI and pneumonia UA 11/12 significant for urine protein 4+, glucose 4+, ketones 1+ 2+, leukocyte esterase positive, bacteria 1+, RBC 16, WBC 3826 Chest x-ray 11/12 shows early bibasilar pneumonia, CT chest abdomen pelvis without contrast 11/12 shows bibasilar pneumonia, cholelithiasis and abundant stool in rectum, suspicion of proctitis. Blood culture negative urine culture Proteus mirabilis prescription to ceftriaxone, sputum gram stain culture shows Staphylococcus aureus sensitive to ceftriaxone. Nasal MRSA screen negative Patient received adequate fluid resuscitation, started on pressors Levophed and vasopressin Patient was on ceftriaxone in ED on 11/12/24, Zosyn 10/3024-11/14/24, ceftriaxone 11/14/24-11/16/24 and doxycycline 11/13/24-11/16/24. Plan: Maintain MAP >70. Started on Unasyn 11/16/24 Discontinued ceftriaxone and doxycycline Heme #Anemia likely 2/2 CKD vs malnutrition Hemoglobin 12.7, hematocrit 40.9, MCV 97, MCH 30, MCHC 31.1 on admission Monitor CBC daily #Leukocytosis WBC count 16,000 on admission Elevation secondary to sepsis Treat underlying etiology #Thrombocytopenia in setting of severe sepsis 2/2 E. 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 No delon bleeding noted. Plan: Pending HIT antibodies Repeat CBC later today Endo # Hyperosmolar hyperglycemic state # Type 2 diabetes mellitus # Anion gap metabolic acidosis # Hypoglycemia Patient did have elevated beta hydroxybutyrate, blood glucose significantly elevated 1213 on admission Patient was given insulin GGT, held currently Hemoglobin A1c 08/23/2024: 12.5 Plan: Continue sliding scale insulin Will hold Lantus, patient having episodes of hypoglycemia. Fingerstick blood glucose every 6 hours Resume enteral feeding through NG tube GI #Elevated Lipase CT negative for signs of pancreatitis. #GI prophylaxis On famotidine Integumentary # Superficial purplish discoloration, bilateral feet, knees and hands Suspicion of vasopressor induced ischemia versus venous stasis Will continue to monitor Disposition: Continue with ICU management as patient is requiring pressors to maintain a MAP of more than 70, will be extubated today. DVT prophylaxis: SCDs GI prophylaxis: Famotidine Diet: NG tube Lines: Peripheral IV Code status: DNR lines Lines: Right IJ, peripheral IV, left femoral A-line, right femoral Vas-Cath Case discussed with Attending Dr. Muñoz and Dr. Arambula PGY2. Reno Bansal PGY1 Attending Provider Attestation/Addendum Patient seen and examined with above resident, Reno Bansal MD. I agree with the findings, assessment, plan of care as documented except for any differences below. Patient with hypoglycemia overnight. Will discontinue Lantus and continue to monitor with serial checks. Patient continues to be off of tube feeds and was successfully weaned from mechanical ventilation today. Hold tube feeds at this time though NG tube access is in place. Plan for D10 NS at low rate to ensure stable glycemia. Patient remains on broad-spectrum antibiotics appropriately until today, will be transition to Unasyn given growth from urinary tract and adequate coverage for potential aspiration infection from the community setting. Patient's gas exchange well-preserved and now being weaned off of nasal cannula this afternoon. Patient continues to have peripheral cyanosis and gangrene of the skin due to high vasopressor requirements, will minimize these and continue on compresses. Patient may ultimately require surgical intervention. Patient's acute encephalopathy is slowly improving as well as he is able to follow commands though remains profusely weak after critical illness. Wean off vasopressors as tolerated with maintenance of MAP goal greater than 70. He does have some urinary output but will likely continue to require hemodialysis. Will minimize access sites with discontinuation of right IJ CVC and arterial catheter. Dialysis catheter will be left in place for repeat HD likely tomorrow before discontinuation plan for potential tunneled catheter as per nephrology's input in the coming days. Patient's has not been at bedside yet today, will defer to residents to contact for an update. Total critical care time: I personally spent 40 minutes for review of physiologic parameters, directing plan of care throughout the day, and coordination of care with other specialties. This is exclusive of time spent teaching housestaff or performing any separate billable procedures.
--- NOTE | 2024-11-16 12:20 | ESPR_ITS ---
Documentation for date of: 11/16/24 Subjective Subjective Interval history: Celso Robertson is a 78-year-old gentleman with extensive past medical history of hypertension, dyslipidemia, CAD status post CABG, stroke, and drug abuse who presented to the emergency department brought in by ambulance with altered mental status. In ED, patient was hypothermic with T 93.9 F so Joby hugger was started. Labs showed WBC 16, hemoglobin 12.7, platelets 208. ABG: pH 7.19, pCO2 35, pO2 471, HCO3 14. Na 141, K 6.3, HCO3 < 10, BUN 117, Cr 5.6, glucose 1213, lactic acid 4.8, phosphorus 11.5, Mg 3.5, AST 46, ALT 27, ALP 144, CK 5020, troponin 0.045, albumin 2.9, Pro-Camilo 49.3, lipase 292, beta hydroxybutyrate 3.3, UA: significant pyuria, U tox (+) amphetamines. CXR (-). CT abdomen showed pneumonia, proctitis, no hydronephrosis. In ED received 3 L of NS, calcium gluconate, and ceftriaxone. In ED BP dropped significantly after being warmed prompting initiation of Levophed via peripheral line until central line was placed. Also intubated for airway protection. Admitted to ICU for further evaluation and care of septic shock/DKA with severe metabolic derangements, and NEELAM. CT head and C/A/P pending at that time. Started on insulin. Renal consultation requested for metabolic acidosis and acute renal failure. 11/13: Patient currently seen in ICU. Urine output still remains very low. This morning patient had significant electrolyte imbalance and intractable metabolic acidosis that prompted emergency dialysis. However, osmolality dropped significantly and I spoke to Dr. Muñoz, planning for 3% hypertonic saline. Patient remains ventilated. 11/15: Patient currently seen in ICU. On pressors, remains on ventilator, currently receiving dialysis. WBC 6.7, hemoglobin 9.3, platelets 23. Sodium 145, potassium 5.4, BUN 65, creatinine 3.6, blood sugar 395, osmolality 318, calcium 8.4, LFTs normal, albumin 2.8. Echo showed EF 50 to 55%. Sputum cultures positive for Staph aureus. Urine cultures positive for Proteus mirabilis. Currently on ceftriaxone. 11/16: Patient currently seen in ICU. Continues to require pressors and remains on ventilator. Spoke to web systems developer, Dr. Muñoz, and agreed to not undergo dialysis today. Patient appears to be more alert, responding to commands albeit weak. Upper and lower extremities exhibiting cyanosis on pressors, but patient states he is not in pain. Exam Vital Signs Temp Pulse Resp BP Pulse Ox O2 Del Method O2 Flow Rate 97.5 F 81 22 H 110/64 95 Oxy Mask 3 11/16/24 12:00 11/16/24 12:00 11/16/24 12:11/16/24 12:00 11/16/24 12:11/16/24 12:11/16/24 12:00 FiO2 30 11/16/24 08:00 Narrative Exam General: awake, alert, responds to questions, intubated HEENT: right IJ line and ET tube placed Cardiovascular: regular rate and rhythm, S1/S2 present, no murmurs appreciated Pulmonary: clear to auscultation bilaterally Abdominal: soft, non-tender, non-distended, no rebound/guarding, normal bowel sounds present Musculoskeletal: normal ROM, no peripheral edema Skin: cyanosis noted in all extremities (lower > upper), cool to touch Objective Labs 11/17/24 13:58 11/17/24 04:58 Labs: Laboratory Results - last 24 hr 11/16/24 11/16/24 11/16/24 04:22 05:00 09:55 WBC 5.5 RBC 3.05 L Hgb 9.0 L Hct 27.2 L MCV 89 MCH 29.5 MCHC 33.1 RDW Std Deviation 49.6 H Plt Count 17 L* D Neut % (Auto) 86 H Lymph % (Auto) 9 L [place] % (Auto) 4 Eos % (Auto) 0 Baso % (Auto) 1 Neut # (Auto) 4.7 Lymph # (Auto) 0.5 L [place] # (Auto) 0.2 Eos # (Auto) 0.0 Baso # (Auto) 0.0 Immature Gran # (Auto) 0.04 H Absolute Nucleated RBC 0.04 H Immature Gran % 1 H Nucleated RBC % 1 H Puncture Site Arterial Line ABG pH 7.50 H D ABG pCO2 28 L ABG pO2 114 H D ABG HCO3 21 ABG O2 Saturation 100 H ABG Base Excess -1 FiO2 30 Sodium 145 Potassium 3.9 D Chloride 113 H Carbon Dioxide 20.0 Anion Gap 12 BUN 53 H Creatinine 3.1 H D Estim Creat Clear Calc 20.5 L eGFR 20 L BUN/Creatinine Ratio 17 Glucose 65 L D Calculated Osmolality 301 H Lactic Acid 2.0 Calcium 7.2 L Corrected Calcium 8.2 L Total Bilirubin 0.3 AST 82 H ALT 46 Alkaline Phosphatase 134 H D Total Protein 4.9 L Albumin 2.8 L Globulin 2.1 L Albumin/Globulin Ratio 1.3 Misc Test Result Platelets confirmed ABG Interpretation ABG results: 11/12/24 11/12/24 11/13/24 15:00 22:55 01:40 ABG pH 7.19 L* 7.30 L D ABG pCO2 35 115 H* D ABG pO2 471 H 23 L* D ABG HCO3 14 L 57 H ABG O2 Saturation 100 H 38 L ABG Base Excess -14 L 26 H VBG pH 7.17 L VBG pCO2 22 L VBG pO2 92 H VBG Base Excess -19 L 11/13/24 11/13/24 11/13/24 03:18 12:06 23:50 ABG pH 7.33 L 7.40 7.28 L D ABG pCO2 32 D 37 31 L ABG pO2 202 H D 227 H D 195 H D ABG HCO3 17 L 23 15 L ABG O2 Saturation 100 H 100 H 100 H ABG Base Excess -8 L -2 -11 L VBG pH VBG pCO2 VBG pO2 VBG Base Excess 11/14/24 11/15/24 11/16/24 04:10 04:35 04:22 ABG pH 7.30 L 7.36 7.50 H D ABG pCO2 35 36 28 L ABG pO2 104 D 74 L D 114 H D ABG HCO3 17 L 20 21 ABG O2 Saturation 99 H 96 100 H ABG Base Excess -9 L -5 L -1 VBG pH VBG pCO2 VBG pO2 VBG Base Excess Quality Measures Quality Measures VTE prophylaxis Advance care planning discussed with:: patient Assessment & Plan Assessment Current Active Medications: Generic Name Dose Route Start Last Admin Trade Name Freq PRN Reason Stop Dose Admin Acetaminophen 650 mg 11/13/24 13:41 11/13/24 14:10 Acetaminophen Supp 650 Mg Supp RI 12/13/24 13:40 650 mg Q6HR PRN Administration Pain Or Fever > 100.4 Protocol Acetaminophen 650 mg 11/14/24 17:47 11/14/24 17:56 Acetaminophen Hayde 325 Mg/10 Ml Udc GT 12/13/24 20:48 650 mg Q6HR PRN Administration Fever > 100.4 Dextrose 25 ml 11/15/24 08:58 11/16/24 11:14 Dextrose 50%-Water Inj 50 Ml Syringe IV 12/15/24 08:57 25 ml Q15MIN PRN Administration BG 50-70 responsive npo pt Dextrose 50 ml 11/15/24 08:58 11/16/24 05:10 Dextrose 50%-Water Inj 50 Ml Syringe IV 12/15/24 08:57 50 ml Q15MIN PRN Administration BG <50 OR BG <70 & pt unresponsive Famotidine 20 mg 11/14/24 09:30 11/16/24 08:18 Famotidine Inj 10 Mg/Ml Vial 2 Ml IVP 12/14/24 09:29 20 mg QDAY MARIE Administration Glucagon 1 mg 11/15/24 08:58 Glucagon Inj 1 Mg Vial IM Q15MIN PRN BG <70, and no IV access Heparin Sodium (Porcine) 2,500 unit 11/13/24 06:00 11/15/24 11:00 Heparin Sod Inj 1000 Unit/Ml Vial 10 Ml INDWELLCAT 11/27/24 05:59 2,500 unit PRN PRN Administration CLOTTING PREVENTION Heparin Sodium (Porcine) 2,500 unit 11/13/24 09:20 11/15/24 14:23 Heparin Sod Inj 1000 Unit/Ml Vial 10 Ml INDWELLCAT 11/27/24 09:19 2,500 unit PRN PRN Administration DIALYSIS Propofol 1,000 mg in 100 mls @ 2.177 mls/hr 11/12/24 18:01 11/15/24 09:00 Diprivan Ivpb IV 12/12/24 18:00 0 mcg/kg/min .Q24H PRN 0 mls/hr PER PROTOCOL Titration Protocol 5 MCG/KG/MIN Fentanyl Citrate 2,500 mcg in 250 mls @ 2.5 mls/hr 11/12/24 18:13 11/15/24 10:00 Sublimaze Inj 2,500 Mcg/250 Ml Bag IV 11/17/24 18:12 0 mcg/hr .Q24H PRN 0 mls/hr PER PROTOCOL Titration Protocol 25 MCG/HR Insulin Human Regular 100 unit in 100 mls @ 7.258 mls/hr 11/12/24 19:36 11/14/24 16:00 Myxredlin IV 12/12/24 19:35 0 unit/kg/hr .[id number] PRN 0 mls/hr PER PROTOCOL Titration Protocol 0.1 UNIT/KG/HR Vasopressin/Sodium Chloride 20 unit in 100 mls @ 9 mls/hr 11/12/24 22:30 11/16/24 07:00 Vasostrict/Ns Ivpb IV 12/12/24 22:29 0.03 unit/min .[id number] PRN 9 mls/hr PER PROTOCOL Titration Protocol 0.03 UNIT/MIN Albumin Human 25 gm in 100 mls @ 100 mls/min 11/13/24 04:54 11/14/24 17:00 Albuminar-25 Ivpb IV Infused PRN PRN Infusion DIALYSIS Norepinephrine Bitartrate 16 mg in 250 mls @ 3.248 mls/hr 11/14/24 11:01 11/16/24 12:05 Levophed In Ns 16mg/250ml IV 12/13/24 01:46 0.02 mcg/kg/min .Q24H PRN 1.299 mls/hr PER PROTOCOL Titration Protocol 0.05 MCG/KG/MIN Ampicillin Sodium/Sulbactam 100 mls @ 200 mls/hr 11/16/24 12:00 11/16/24 11:24 Sodium 3 gm/ Sodium Chloride IV 11/23/24 11:59 200 mls/hr Q12HR MARIE Administration Dextrose/Sodium Chloride 1,000 mls @ 75 mls/hr 11/16/24 11:43 11/16/24 11:52 D5-1/2ns IV 12/16/24 11:42 75 mls/hr BID MARIE Administration Insulin Glargine 40 unit 11/15/24 09:00 11/16/24 08:11 Insulin Glargine (Lantus) 5 Unit/0.05 Ml (Per 5 Units) SC 12/15/24 08:59 Not Given QDAY MARIE Insulin Human Lispro 0 unit 11/15/24 12:00 11/16/24 11:21 Insulin Lispro (Admelog) 1 Unit/0.01 Ml Unit SC 12/15/24 11:59 Not Given Q6HR MARIE Protocol Plan Celso Robertson is a 78-year-old gentleman with extensive past medical history of hypertension, dyslipidemia, CAD status post CABG, stroke, and drug abuse who is admitted to ICU for further evaluation and care of septic shock/DKA with severe metabolic derangements and NEELAM, for which nephrology was consulted. #Acute renal failure, secondary to prerenal azotemia with DKA and septic shock #Hyperkalemia #Hyperosmolar hyperchloremic hypernatremia (corrected for blood sugar 1200 is 164, slowly improved to 145) #Hypermagnesemia #Hyperphosphatemia #Anion gap metabolic acidosis, intractable requiring dialysis #Lactic acidosis #Hypoxic respiratory failure #Metabolic encephalopathy Dialysis sessions during this admission: 11/13, 11/14, 11/15 Plan of care discussed with the dialysis nurse, please see dialysis flowsheet for further details ? Spoke to web systems developer, Dr. Muñoz, and rest of ICU team regarding plan of care with no plans for dialysis today ----- Plan discussed with attending physician Dr. Chidi Prakash MD PGY-1 Internal Medicine Attending Provider Attestation/Addendum Patient seen and examined with resident physician Dr. Hammond. Note reviewed, agree with findings and recommendations. Patient currently seen in ICU. Started to make some urine. Hold dialysis today. Remains on the ventilator. Hopefully can be extubated today. Still with significant cyanosis in both hands and feet.
--- NOTE | 2024-11-16 13:20 | PC.NURSE ---
DEEPAK TLC and L FEM ART LINE removed by MD Bansal
--- NOTE | 2024-11-16 15:11 | PC.SS ---
Update: Patient extubated today. Transitioned to nasal cannula. Patient remains on pressor support.
[2024-11-16 15:42] LABS: Basophils % (Auto) 1 % (0-2.5); Eosinophils % (Auto) 0 % (0-10); Hematocrit 25.1 % (41.0-53.0); Immature Granulocytes % (Auto) 1 % (0-0); Immature Granulocytes Auto 0.04 Thou/mm3 (0.00-0.00); Lymphocytes # (Auto) 0.4 Thou/mm3 (1.0-4.8); Lymphocytes % (Auto) 9 % (10-50); Mean Corpuscular HGB Conc 33.1 g/dl (31.0-37.0); Mean Corpuscular Hemoglobin 29.4 pg (25.0-35.0); Mean Corpuscular Volume 89 fL (80-100); Monocytes # (Auto) 0.2 Thou/mm3 (0.0-0.8); Monocytes % (Auto) 5 % (0-12); Neutrophils # (Auto) 3.4 Thou/mm3 (1.8-7.7); Neutrophils % (Auto) 85 % (37-80); Nucleated Red Blood Cell # 0.02 Thou/mm3 (0.00-0.00); Nucleated Red Blood Cell % 1 /100 WBC (0); RDW Standard Deviation 50.3 fL (35.1-43.9); Red Blood Count 2.82 Miln/mm3 (4.50-5.90)
[2024-11-16 16:08] LABS: Hemoglobin 8.3 g/dL (13.5-16.0); Platelet Count 12 Thou/mm3 (140-440)
[2024-11-16 16:16] LABS: Slide Review Platelets confirmed
[2024-11-16] MEDS: DEXTROSE 10% IV (17:40)
[2024-11-16] MEDS: WATER IV (17:40)
[2024-11-16] MEDS: SODIUM CHLOR ADDITIVE IV (17:40)
[2024-11-17] VITALS (97 sets, daily range): BP systolic 84–123; BP diastolic 49–70; PULSE 82–92; RESP 19–27; TEMP 36.1–36.5; O2SAT 94–100; BMI 22.4
[2024-11-17 06:12] LABS: Basophils % (Auto) 1 % (0-2.5); Eosinophils % (Auto) 0 % (0-10); Hematocrit 27.2 % (41.0-53.0); Hemoglobin 8.9 g/dL (13.5-16.0); Immature Granulocytes % (Auto) 1 % (0-0); Immature Granulocytes Auto 0.03 Thou/mm3 (0.00-0.00); Lymphocytes # (Auto) 0.4 Thou/mm3 (1.0-4.8); Lymphocytes % (Auto) 7 % (10-50); Mean Corpuscular HGB Conc 32.7 g/dl (31.0-37.0); Mean Corpuscular Hemoglobin 29.9 pg (25.0-35.0); Mean Corpuscular Volume 91 fL (80-100); Monocytes # (Auto) 0.2 Thou/mm3 (0.0-0.8); Monocytes % (Auto) 4 % (0-12); Neutrophils # (Auto) 4.5 Thou/mm3 (1.8-7.7); Neutrophils % (Auto) 87 % (37-80); Nucleated Red Blood Cell # 0.03 Thou/mm3 (0.00-0.00); Nucleated Red Blood Cell % 1 /100 WBC (0); RDW Standard Deviation 51.2 fL (35.1-43.9); Red Blood Count 2.98 Miln/mm3 (4.50-5.90); White Blood Count 5.1 Thou/mm3 (3.8-10.6)
[2024-11-17 06:18] LABS: Platelet Count 21 Thou/mm3 (140-440); Slide Review Platelets confirmed
[2024-11-17 06:53] LABS: Alanine Aminotransferase 50 U/L (10-49); Albumin, Serum 2.6 gm/dL (3.4-4.8); Albumin/Globulin Ratio 1.3 (1.2-2.2); Alkaline Phosphatase 132 U/L (46-116); Anion Gap 14 (7-16); Aspartate Amino Transferase 94 U/L (0-34); BUN/Creatinine Ratio 17 Ratio (12-20); Bilirubin,Total 0.2 mg/dL (0.3-1.2); Blood Urea Nitrogen 62 mg/dL (9-23); Calcium 6.9 mg/dL (8.3-10.6); Carbon Dioxide 20.4 mMol/L (20.0-31.0); Chloride 113 mMol/L (98-107); Creatinine (Component) 3.7 mg/dL (0.6-1.3); Estimated Creatinine Clearance 17.1 mL/min (>60); Glucose 94 mg/dL (74-106); Magnesium 1.6 mg/dL (1.6-2.6); Osmolality,Calculated 310 (275-295); Phosphorous 3.6 mg/dL (2.4-5.1); Potassium 3.4 mMol/L (3.4-5.1); Sodium 147 mMol/L (136-145); Total Protein 4.6 gm/dL (5.7-8.2); eGFR 16 See Note
[2024-11-17] MEDS: FAMOTIDINE INJ 10 MG/ML VIAL 2 ML 20 MG IVP (09:24)
[2024-11-17] MEDS: AMPICILLIN/SULBAC INJ 3 GM in SODIUM CHLORIDE 0.9% (P) 100 ML IV ×2 (09:25→20:42)
--- NOTE | 2024-11-17 10:27 | ESPR_ITS ---
Documentation for date of: 11/17/24 Subjective Subjective Interval history: Chart review done Mr. Robertson is a 78-year-old gentleman with extensive past medical history of hypertension, dyslipidemia, coronary artery disease status post CABG, stroke, drug abuse presented to the emergency department brought in by ambulance with altered mental status. In the emergency department patient was hypothermic with a temp of 93.9. Patient was given Joby hugger. Labs showed WBC 16, hemoglobin 12.7, platelets 208. ABG showing pH 7.19, pCO2 35, pO2 471, HCO3 14. Chemistry showing sodium 141, potassium 6.3, bicarbonate less than 10, BUN 117, creatinine 5.6, glucose 1213, lactic acid 4.8, phosphorus 11.5, magnesium 3.5, AST 46, ALT 27, alk phos 144, CK5 020, troponin 0.045, albumin 2.9, Pro-Camilo 49.3, lipase 292, beta hydroxy 3.3 urinalysis shows significant pyuria, urine tox screen positive for amphetamines. Chest x-ray showed no pneumonia. CT abdomen showed pneumonia, proctitis, kidneys with no hydronephrosis. Patient received 3L of NS at ED, calcium gluconate, ceftriaxone. At ED patient's BP dropped significantly after being warmed prompting initiation of Levophed via peripheral line until central line was placed, patient was also intubated for airway protection. Patient was admitted to ICU for further evaluation and care of septic shock/ DKA with severe metabolic derangements, and NEELAM. CT imaging of head, chest/abdomen/pelvis were pending. Patient was started on insulin. Renal consultation requested for metabolic acidosis, acute renal failure. Currently seen in the emergency department. Dr. Muñoz and team are planning to place a central line. 11/13/2024 patient currently seen in ICU. Urine output still remains very low. This morning patient had significant electrolyte imbalance, intractable metabolic acidosis that I had to do emergency dialysis. However osmolality dropped significantly and I spoke to Dr. Muñoz-planning for 3% hypertonic saline. Patient remains ventilated. 11/15/2023 patient currently seen in ICU. On pressors. Remains on the ventilator. Currently on dialysis. WBC 6.7, hemoglobin 9.3, platelets 23. Sodium 145, potassium 5.4, BUN 65, creatinine 3.6, blood sugar 395, osmolality 318, calcium 8.4, LFTs normal, albumin 2.8, echocardiogram showed ejection fraction 50 to 55%. Sputum cultures positive for Staph aureus. Urine cultures positive for Proteus mirabilis. Patient currently on ceftriaxone 11/17/2023 patient currently seen in ICU. Off ventilator. Off pressors. Decided to hold off on dialysis as patient made 720 mL of urine. Patient still has a significant cyanosis in both hands and feet. Afraid he is going to develop gangrene. Dialysis catheter, central line were removed. Review of Systems Review of Systems ROS Unobtainable: unobtainable due to medical condition Exam Vital Signs Temp Pulse Resp BP Pulse Ox O2 Del Method O2 Flow Rate 36.2 C 90 24 H 95/56 L 99 Nasal Cannula 1 11/17/24 08:00 11/17/24 09:00 11/17/24 09:00 11/17/24 09:00 11/17/24 09:00 11/17/24 08:00 11/17/24 08:00 FiO2 30 11/16/24 08:00 Narrative Exam GENERAL APPEARANCE: Patient in ICU. Extubated CARDIOVASCULAR: Heart regular, no murmurs LUNGS/CHEST: Few rhonchi noted bilaterally ABDOMEN: Soft, nontender, nondistended. No masses. Normal bowel sounds. EXTREMITIES: No edema, clubbing or cyanosis. SKIN: Significant cyanotic changes noted in both hands and feet MUSCULOSKELETAL: In bed NEUROLOGICAL : Alert and awake Objective Labs 11/17/24 13:58 11/17/24 04:58 Labs: Laboratory Results - last 24 hr 11/16/24 11/16/24 11/17/24 09:55 15:23 04:58 WBC 4.0 5.1 RBC 2.82 L 2.98 L Hgb 8.3 L 8.9 L Hct 25.1 L 27.2 L MCV 89 91 MCH 29.4 29.9 MCHC 33.1 32.7 RDW Std Deviation 50.3 H 51.2 H Plt Count 12 L* D 21 L* D Neut % (Auto) 85 H 87 H Lymph % (Auto) 9 L 7 L [place] % (Auto) 5 4 Eos % (Auto) 0 0 Baso % (Auto) 1 1 Neut # (Auto) 3.4 4.5 Lymph # (Auto) 0.4 L 0.4 L [place] # (Auto) 0.2 0.2 Eos # (Auto) 0.0 0.0 Baso # (Auto) 0.0 0.0 Immature Gran # (Auto) 0.04 H 0.03 H Absolute Nucleated RBC 0.02 H 0.03 H Immature Gran % 1 H 1 H Nucleated RBC % 1 H 1 H Sodium 147 H Potassium 3.4 D Chloride 113 H Carbon Dioxide 20.4 Anion Gap 14 BUN 62 H Creatinine 3.7 H D Estim Creat Clear Calc 17.1 L eGFR 16 L BUN/Creatinine Ratio 17 Glucose 94 Calculated Osmolality 310 H Lactic Acid 2.0 Calcium 6.9 L Corrected Calcium 8.0 L Phosphorus 3.6 Magnesium 1.6 Total Bilirubin 0.2 L AST 94 H ALT 50 H Alkaline Phosphatase 132 H Total Protein 4.6 L Albumin 2.6 L Globulin 2.0 L Albumin/Globulin Ratio 1.3 Misc Test Result Platelets confirmed Platelets confirmed ABG Interpretation ABG results: 11/12/24 11/12/24 11/13/24 15:00 22:55 01:40 ABG pH 7.19 L* 7.30 L D ABG pCO2 35 115 H* D ABG pO2 471 H 23 L* D ABG HCO3 14 L 57 H ABG O2 Saturation 100 H 38 L ABG Base Excess -14 L 26 H VBG pH 7.17 L VBG pCO2 22 L VBG pO2 92 H VBG Base Excess -19 L 11/13/24 11/13/24 11/13/24 03:18 12:06 23:50 ABG pH 7.33 L 7.40 7.28 L D ABG pCO2 32 D 37 31 L ABG pO2 202 H D 227 H D 195 H D ABG HCO3 17 L 23 15 L ABG O2 Saturation 100 H 100 H 100 H ABG Base Excess -8 L -2 -11 L VBG pH VBG pCO2 VBG pO2 VBG Base Excess 11/14/24 11/15/24 11/16/24 04:10 04:35 04:22 ABG pH 7.30 L 7.36 7.50 H D ABG pCO2 35 36 28 L ABG pO2 104 D 74 L D 114 H D ABG HCO3 17 L 20 21 ABG O2 Saturation 99 H 96 100 H ABG Base Excess -9 L -5 L -1 VBG pH VBG pCO2 VBG pO2 VBG Base Excess Assessment & Plan Additional Assessment & Plan Additional Plan: Mr. Robertson is a 78-year-old gentleman with multiple medical problems presented with- # ARF secondary to prerenal azotemia with diabetic ketoacidosis and septic shock-needing dialysis #Hyperkalemia #Hyperosmolar hyperchloremic hypernatremia -corrected for blood sugar 1200 is 164 --- slowly improved to 145 #Hypermagnesemia #Hyperphosphatemia # Anion gap metabolic acidosis-intractable needing dialysis #Lactic acidosis. # Hypoxic respiratory failure # Metabolic encephalopathy Spoke to Dr. Muñoz- Patient started to make urine. Will hold off on dialysis. Patient with significant cyanotic changes in the lower extremities -On pressors. Prognosis remains guarded. Procedures Arterial Line Size (Gauge): 20
[2024-11-17 10:56] LABS: Lipase 28 U/L (12-53)
[2024-11-17] MEDS: SODIUM CHLOR ADDITIVE IV (11:39)
[2024-11-17] MEDS: WATER IV (11:39)
[2024-11-17] MEDS: DEXTROSE 10% IV (11:39)
--- NOTE | 2024-11-17 11:59 | PD.RESPRO ---
Documentation for date of: 11/17/24 Subjective Subjective Interval history: Interval history: 11/13/2024; patient was seen and examined by bedside, overnight patient underwent HD dialysis catheter placement and arterial line placement, U-Tox was noted for methamphetamine, head CT was negative for acute bleed/midline shift, C/A/P CT was only noted for bibasilar pneumonia along with cholelithiasis and rectal wall thickening given concern for proctitis. Patient is intubated and sedated, there was concern for overcorrection of hyponatremia in light of rapid sodium correction there was concern for increased ICP/cerebral edema, Optic nerve US was done on patient's right eye, diameter was noted to be 8.5mm. Could not reach patient's family today 11/14/2024; Patient seen and examined by bedside, completed HD on high hemodynamic support. Ucx showed proteus mirabilis that was pansensitive, Zosyn was de-escalated to Ceftriaxone, with continuation of Doxycycline. Repeat Ocular US for optic nerve US noted for decrease in diameter from 8.5 to 4.7mm. discussed patient's condition with DNR status established. Insulin drip discontinued and patient was given Insulin glargine 30units, wbc count normalized, PLT count continues to drop but his 4T score showed low probability for HIT, will continue to monitor as thrombocytopneia likely to improve as sepsis resolves. 11/15/2024; patient seen and examined at bedside, sedation weaning to try to determine mental status, patient grimacing occasionally to pain otherwise not responsive. Thrombocytopenia likely multifactorial, however heparin stopped peripheral smear and heparin antibody test sent. Plan for HD today. 11/16/2024: Patient seen and examined at bedside, was weaned off of sedation yesterday, currently spontaneous breathing trial in progress, patient's mentation has improved remarkably, patient is responding to commands, tracks with eyes, plan to extubate patient today. Overnight patient did have episode of hypoglycemia, blood glucose 66 this morning, was given 2 Amps of D50, started on feeding via NG tube, will hold Lantus. Will continue pressors with goal to maintain MAP more than 70 underlying concern of cerebral edema, will assess neurological symptom comprehensively once patient is more awake and alert. Sputum culture significant for staph, urine culture shows pansensitive Proteus patient's antibiotic regimen optimized to Unasyn, ceftriaxone and doxycycline discontinued. Plan is to extubate patient and monitor for now, will maintain MAP more than 70, continue pressors. 11/17/2024: Patient was seen and examined at bedside. Overnight patient was started on Levophed due to MAP below 70, today he was tapered down and was able to maintain MAP of 65-70 without pressors. He was extubated yesterday without any complications, was placed on 2 L oxy mask with saturation 100%. Today he is doing fine and has no complaints, his mental status remained the same, he is able to follow simple commands. Patient is unable to raise his upper extremities and has extremely weak gag reflex when suctioned. He is building up a lot of mucus in his throat and will be suctioned frequently. Patient has suprapubic tenderness, bladder scan did not show any urinary retention or obstructions, Ferraro catheter was replaced. Per nephrology patient does not need hemodialysis anymore as his urine output now 750 cc. Yesterday his art line and central line were removed, today we removed Vas-Cath. His glucose today in 120s, will continue holding glargine for today. PLT is improving, today at 21. Exam Vital Signs Temp Pulse Resp BP Pulse Ox O2 Del Method O2 Flow Rate 97.1 F 86 23 H 89/53 L 100 Nasal Cannula 1 11/17/24 08:00 11/17/24 11:15 11/17/24 11:15 11/17/24 11:15 11/17/24 11:15 11/17/24 08:00 11/17/24 08:00 FiO2 30 11/16/24 08:00 Narrative Exam Gen: Well-developed male in no acute distress. HEENT: NCAT, PERRLA, EOMI, MMM, anicteric conjunctivae. CVS: normal S1 and S2. RRR. No M/R/G. Resp: coarse breath features due to mucus buildup in upper airways. No rhonchi, rales, crackles or wheezing. Abd: soft, tender in suprapubic region, non-distended. BS+ in all 4 quadrants. MSK: Good ROM in BUE & BLE. No edema or rash. Muscle wasting noted on BLE. BUE and BLE purpulish discoloration noted along with cold extremities, especially tips of toes and fingers. Neuro: Awake, able to follow simple commands, unable to talk, very weak gag reflex. Unable to raise BUE. Limited exam. Objective Labs 11/18/24 06:08 11/18/24 06:08 Labs: Laboratory Results - last 24 hr 11/16/24 11/17/24 11/17/24 15:23 04:58 05:00 WBC 4.0 5.1 RBC 2.82 L 2.98 L Hgb 8.3 L 8.9 L Hct 25.1 L 27.2 L MCV 89 91 MCH 29.4 29.9 MCHC 33.1 32.7 RDW Std Deviation 50.3 H 51.2 H Plt Count 12 L* D 21 L* D Neut % (Auto) 85 H 87 H Lymph % (Auto) 9 L 7 L [place] % (Auto) 5 4 Eos % (Auto) 0 0 Baso % (Auto) 1 1 Neut # (Auto) 3.4 4.5 Lymph # (Auto) 0.4 L 0.4 L [place] # (Auto) 0.2 0.2 Eos # (Auto) 0.0 0.0 Baso # (Auto) 0.0 0.0 Immature Gran # (Auto) 0.04 H 0.03 H Absolute Nucleated RBC 0.02 H 0.03 H Immature Gran % 1 H 1 H Nucleated RBC % 1 H 1 H Sodium 147 H Potassium 3.4 D Chloride 113 H Carbon Dioxide 20.4 Anion Gap 14 BUN 62 H Creatinine 3.7 H D Estim Creat Clear Calc 17.1 L eGFR 16 L BUN/Creatinine Ratio 17 Glucose 94 Calculated Osmolality 310 H Calcium 6.9 L Corrected Calcium 8.0 L Phosphorus 3.6 Magnesium 1.6 Total Bilirubin 0.2 L AST 94 H ALT 50 H Alkaline Phosphatase 132 H Total Protein 4.6 L Albumin 2.6 L Globulin 2.0 L Albumin/Globulin Ratio 1.3 Lipase 28 Misc Test Result Platelets confirmed Platelets confirmed ABG Interpretation ABG results: 11/12/24 11/12/24 11/13/24 15:00 22:55 01:40 ABG pH 7.19 L* 7.30 L D ABG pCO2 35 115 H* D ABG pO2 471 H 23 L* D ABG HCO3 14 L 57 H ABG O2 Saturation 100 H 38 L ABG Base Excess -14 L 26 H VBG pH 7.17 L VBG pCO2 22 L VBG pO2 92 H VBG Base Excess -19 L 11/13/24 11/13/24 11/13/24 03:18 12:06 23:50 ABG pH 7.33 L 7.40 7.28 L D ABG pCO2 32 D 37 31 L ABG pO2 202 H D 227 H D 195 H D ABG HCO3 17 L 23 15 L ABG O2 Saturation 100 H 100 H 100 H ABG Base Excess -8 L -2 -11 L VBG pH VBG pCO2 VBG pO2 VBG Base Excess 11/14/24 11/15/24 11/16/24 04:10 04:35 04:22 ABG pH 7.30 L 7.36 7.50 H D ABG pCO2 35 36 28 L ABG pO2 104 D 74 L D 114 H D ABG HCO3 17 L 20 21 ABG O2 Saturation 99 H 96 100 H ABG Base Excess -9 L -5 L -1 VBG pH VBG pCO2 VBG pO2 VBG Base Excess Quality Measures Quality Measures VTE prophylaxis Advance care planning discussed with:: patient Assessment & Plan Assessment Current Active Medications: Generic Name Dose Route Start Last Admin Trade Name Freq PRN Reason Stop Dose Admin Acetaminophen 650 mg 11/13/24 13:41 11/13/24 14:10 Acetaminophen Supp 650 Mg Supp MD 12/13/24 13:40 650 mg Q6HR PRN Administration Pain Or Fever > 100.4 Protocol Acetaminophen 650 mg 11/14/24 17:47 11/14/24 17:56 Acetaminophen Hayde 325 Mg/10 Ml Udc GT 12/13/24 20:48 650 mg Q6HR PRN Administration Fever > 100.4 Dextrose 25 ml 11/15/24 08:58 11/16/24 11:14 Dextrose 50%-Water Inj 50 Ml Syringe IV 12/15/24 08:57 25 ml Q15MIN PRN Administration BG 50-70 responsive npo pt Dextrose 50 ml 11/15/24 08:58 11/16/24 05:10 Dextrose 50%-Water Inj 50 Ml Syringe IV 12/15/24 08:57 50 ml Q15MIN PRN Administration BG <50 OR BG <70 & pt unresponsive Famotidine 20 mg 11/14/24 09:30 11/17/24 09:24 Famotidine Inj 10 Mg/Ml Vial 2 Ml IVP 12/14/24 09:29 20 mg QDAY MARIE Administration Glucagon 1 mg 11/15/24 08:58 Glucagon Inj 1 Mg Vial IM Q15MIN PRN BG <70, and no IV access Heparin Sodium (Porcine) 2,500 unit 11/13/24 06:00 11/15/24 11:00 Heparin Sod Inj 1000 Unit/Ml Vial 10 Ml [facility] 11/27/24 05:59 2,500 unit PRN PRN Administration CLOTTING PREVENTION Heparin Sodium (Porcine) 2,500 unit 11/13/24 09:20 11/15/24 14:23 Heparin Sod Inj 1000 Unit/Ml Vial 10 Ml [facility] 11/27/24 09:19 2,500 unit PRN PRN Administration DIALYSIS Propofol 1,000 mg in 100 mls @ 2.177 mls/hr 11/12/24 18:01 11/15/24 09:00 Diprivan Ivpb IV 12/12/24 18:00 0 mcg/kg/min .Q24H PRN 0 mls/hr PER PROTOCOL Titration Protocol 5 MCG/KG/MIN Fentanyl Citrate 2,500 mcg in 250 mls @ 2.5 mls/hr 11/12/24 18:13 11/15/24 10:00 Sublimaze Inj 2,500 Mcg/250 Ml Bag IV 11/17/24 18:12 0 mcg/hr .Q24H PRN 0 mls/hr PER PROTOCOL Titration Protocol 25 MCG/HR Insulin Human Regular 100 unit in 100 mls @ 7.258 mls/hr 11/12/24 19:36 11/14/24 16:00 Myxredlin IV 12/12/24 19:35 0 unit/kg/hr .[id number] PRN 0 mls/hr PER PROTOCOL Titration Protocol 0.1 UNIT/KG/HR Vasopressin/Sodium Chloride 20 unit in 100 mls @ 9 mls/hr 11/12/24 22:30 11/16/24 18:49 Vasostrict/Ns Ivpb IV 12/12/24 22:29 0 unit/min .[id number] PRN 0 mls/hr PER PROTOCOL Titration Protocol 0.03 UNIT/MIN Albumin Human 25 gm in 100 mls @ 100 mls/min 11/13/24 04:54 11/14/24 17:00 Albuminar-25 Ivpb IV Infused PRN PRN Infusion DIALYSIS Ampicillin Sodium/Sulbactam 100 mls @ 200 mls/hr 11/16/24 12:00 11/17/24 09:25 Sodium 3 gm/ Sodium Chloride IV 11/23/24 11:59 200 mls/hr Q12HR MARIE Administration Norepinephrine Bitartrate 16 mg in 250 mls @ 3.402 mls/hr 11/17/24 09:59 Levophed In Ns 16mg/250ml IV 12/13/24 01:46 .Q24H PRN PER PROTOCOL Protocol 0.05 MCG/KG/MIN Sodium Chloride 154 meq/ 1,000 mls @ 25 mls/hr 11/17/24 10:10 11/17/24 11:39 Dextrose IV 11/20/24 10:09 25 mls/hr .Q24H MARIE Administration Insulin Glargine 40 unit 11/15/24 09:00 11/16/24 08:11 Insulin Glargine (Lantus) 5 Unit/0.05 Ml (Per 5 Units) SC 12/15/24 08:59 Not Given QDAY MARIE Insulin Human Lispro 0 unit 11/15/24 12:00 11/17/24 11:47 Insulin Lispro (Admelog) 1 Unit/0.01 Ml Unit SC 12/15/24 11:59 Not Given Q6HR MARIE Protocol Plan Assessment and Plan Summary: Mr. Robertson is a 78-year old male patient with PMHx of CABG, CVA, HTN, HLD, and meth/fentanyl use BIBA after he was found at home non-responsive at home, no further hx obtained at time of arrival, patient was admitted to ICU for further evaluation and care of septic shock, HHS with severe metabolic derangements, and NEELAM. Patient was intubated for airway protection, central line was placed in right IJ, ICU course was complicated as patient developed acute renal failure, had dialysis catheter placed, patient was started on hypertonic saline, there was concern of increased intracranial pressure/cerebral edema optic nerve ultrasound done on patient's right eye showed diameter 8.5 mm which eventually improved to 4.7 mm and since platelet count dropped significantly, low probability of HIT, antibody send out, will continue to monitor. Spontaneous breathing trial in progress, plan to extubate patient and monitor vitals, eventually will wean off of pressors. MULESER #Acute Encephalopathy metabolic in setting of HHS/septic shock/ Uremia. Patient was weaned off of sedation, Sedation was held yesterday 11/15, currently holding propofol and fentanyl. Patient's mental status is improved, awake, responds to pain, tracks movements with eyes, responds to commands. CT head 11/12 Negative for acute hemorrhage, mass effect or midline shift. Plan: - will continue to monitor patient. #Cerebral Edema. Concern of cerebral edema due to rapid correction of hyponatremia and hyperglycemia causing significant drop in osmolality. Optic nerve ultrasound done on patient's right eye showed diameter 8.5 mm which eventually improved to 4.7 mm. Was given hypertonic saline. Plan: - Maintain MAP above 65. #Methamphetamine dependence. Urine tox screen was positive for methamphetamine, patient has history of drug use. CVS #Septic Shock. Source: Bibasilar pneumonia versus urinary. Chest x-ray 11/12 shows early bibasilar pneumonia, CT chest abdomen pelvis without contrast 11/12 shows bibasilar pneumonia, cholelithiasis and abundant stool in rectum, suspicion of proctitis. UA 11/12 significant for urine protein 4+, glucose 4+, ketones 1+ 2+, leukocyte esterase positive, bacteria 1+, RBC 16, WBC 3826 Echo Findings: Normal LV size and function. Mild LVH. Estimated EF 50-55%, Normal RV size and function. Trace MR, TR. no heart failure noted Blood culture negative urine culture Proteus mirabilis prescription to ceftriaxone, sputum gram stain culture shows Staphylococcus aureus sensitive to ceftriaxone. Nasal MRSA screen negative Patient received adequate fluid resuscitation, started on pressors Levophed and vasopressin Patient was on ceftriaxone in ED on 11/12/24, Zosyn 10/3024-11/14/24, ceftriaxone 11/14/24-11/16/24 and doxycycline 11/13/24-11/16/24. Plan: - Maintain MAP >70. - Started on Unasyn 11/16/24. - Discontinued ceftriaxone and doxycycline. Resp #Acute hypoxic respiratory failure 2/2 septic shock and HHS. Patient unable to protect airway, intubated 11/12. Weaned off of sedation. spontaneous breathing trial in progress. Plan to extubate patient today. Plan: - Continue Unasyn for pneumonia. Renal # Acute renal failure in setting of septic shock. # Suspicion of ATN. # Hyperkalemia, resolved. # Hyperosmolar hyperchloremic hypernatremia. # Hypermagnesemia, resolved. # Hyperphsphatemia, resolved. # AGMA, resolved. # Uremia. # Lactic acidosis. Patient did receive aggressive volume resuscitation and septic shock and HHS Had decreased urine output, temporary dialysis catheter placed 11/13. Patient received dialysis treatment 11/13, 11/14, 11/15. Patient's urine output improving, urine output 232cc noted in the last 24 hours Hypernatremia was corrected with a goal of 6-8 in 24 hours Plan: - hemodialysis discontinued by nephrology, will monitor urine output and labs. - Correct and replace electrolytes as needed. - Monitor intake and output strictly. - Renally dose medications. - Avoid nephrotoxic agents. - Nephrology consulted, recs appreciated. ID # Septic shock in setting of UTI and pneumonia. UA 11/12 significant for urine protein 4+, glucose 4+, ketones 1+ 2+, leukocyte esterase positive, bacteria 1+, RBC 16, WBC 3826. Chest x-ray 11/12 shows early bibasilar pneumonia, CT chest abdomen pelvis without contrast 11/12 shows bibasilar pneumonia, cholelithiasis and abundant stool in rectum, suspicion of proctitis. Blood culture negative urine culture Proteus mirabilis prescription to ceftriaxone, sputum gram stain culture shows Staphylococcus aureus sensitive to ceftriaxone. Nasal MRSA screen negative. Patient received adequate fluid resuscitation, started on pressors Levophed and vasopressin. Patient was on ceftriaxone in ED on 11/12/24, Zosyn 10/3024-11/14/24, ceftriaxone 11/14/24-11/16/24 and doxycycline 11/13/24-11/16/24. Plan: - Maintain MAP >65. - Started on Unasyn 11/16/24. - Discontinued ceftriaxone and doxycycline. Heme #Anemia likely 2/2 CKD vs malnutrition. Hemoglobin 12.7, hematocrit 40.9, MCV 97, MCH 30, MCHC 31.1 on admission. Plan: - Monitor CBC daily. #Leukocytosis. WBC count 16,000 on admission. Elevation secondary to sepsis. Plan: - Treat underlying etiology. #Thrombocytopenia in setting of severe sepsis 2/2 E. Coli bacteremia/Pylonephritis. 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 Platelet count 208 on admission, platelet count down trended significantly, today platelets 17,000. Heparin was discontinued. Per pathology review peripheral blood film significant for severe thrombocytopenia likely infection or medication induced ITP heparin-induced thrombocytopenia is on differential but less likely. No delon bleeding noted. Plan: - Pending HIT antibodies. - Repeat CBC later today. Endo # Hyperosmolar hyperglycemic state. # Type 2 diabetes mellitus. # Anion gap metabolic acidosis. # Hypoglycemia. Patient did have elevated beta hydroxybutyrate, blood glucose significantly elevated 1213 on admission. Patient was given insulin GGT, held currently. Hemoglobin A1c 08/23/2024: 12.5. Plan: - Continue sliding scale insulin. - Will hold Lantus, patient having episodes of hypoglycemia. - Fingerstick blood glucose every 6 hours. - Resume enteral feeding through NG tube. GI #Elevated Lipase. CT negative for signs of pancreatitis. #GI prophylaxis. On famotidine. Integumentary # Superficial purplish discoloration, bilateral feet, knees and hands. Suspicion of vasopressor induced ischemia versus venous stasis. - Will continue to monitor. Disposition: ICU, extubated and off pressors, will stay in ICU for close observation, likely downgrade tomorrow. DVT prophylaxis: SCDs. GI prophylaxis: Famotidine. Diet: NG tube. Lines: Peripheral IV. Code status: DNR lines. Lines: peripheral x2. Case discussed with Attending Dr. Muñoz. Jovany Arambula MD, PGY 2. Disclaimer: This note was dictated by speech recognition. Minor errors in finisher fine diamond dies may be present due to voice recognition software. Attending Provider Attestation/Addendum Patient seen and examined with above resident, Jovany Arambula MD. I agree with the findings, assessment, and plan of care as documented except for any differences below. Patient doing well postextubation though he continues to struggle with improving his mentation. He is tracking and does follow simple commands but not moving extremities as he is profoundly weak. He has significant distal digit and pedal ischemia and necrosis from high vasopressor requirements while in septic shock. Patient successfully weaned off Levophed today. Slow down IV fluids with transition to D10 containing crystalloid. Nephrology is following and he has had some urine output and they have elected to avoid plan for repeat dialysis at this time. Femoral dialysis catheter has been discontinued. Patient will also have Ferraro removed exchanged. Bladder scan was done and did not show any urinary retention and we did not see any sediment. Patient's family not at bedside throughout the day for update, will have resident staff call them. Given the patient's need for NT suctioning earlier this morning and continued difficulty controlling secretions despite adequate oxygenation and ventilation, patient will continue to be monitored closely in the intensive care unit for potential risk of reintubation. Patient continues require critical care services for acute encephalopathy, acute hypoxic respiratory failure, acute renal failure with significant hyperosmolar state secondary to HHS and now course complicated with septic shock from aspiration pneumonia leading to distal digit and pedal ischemia. Patient remains at high risk for further morbidity and mortality warranting ongoing management and care will be available in the intensive care unit. Total critical care time: I personally spent 30 minutes for review of physiologic parameters, directing plan of care throughout the day, and counseling patient at bedside. This is exclusive of time spent teaching housestaff or performing separate billable procedures.
--- NOTE | 2024-11-17 13:00 | XR_ITS ---
Examination: CT abdomen and pelvis without contrast. Coronal 3-D reconstructions. Sagittal 2-D reconstructions. Date and time of exam:November 17, 2024 1324 hrs. Comparison November 12, 2024 Technique: Multiple axial images abdomen 3 mm slice thickness 2-D sagittal coronal reconstructions Low dose protocols automated exposure control and adjustment MA KV according to patient size Small left pleural effusion Pneumonia left base and right perihilar region Fluid peripheral to the liver and spleen with mild ascites Distended gallbladder Orogastric tube in the stomach No focal liver or splenic lesions No pancreatic mass Mild nodular thickening left adrenal gland No renal or ureteral calculi, no hydronephrosis No pericecal inflammatory change Multiple abnormal fluid distended small bowel loops The colon shows wall thickening in the rectal wall is thickened There is marked thickening of the urinary bladder wall, no significant prostatomegaly Prominent osteopenia with advanced disc narrowing at the lower 3 lumbar levels Impression: Pneumonia left base and right perihilar region Fluid peripheral to the liver and spleen with mild ascites Distended gallbladder, recommend hepatobiliary sonography follow-up No renal or ureteral calculi Multiple small bowel loops fluid distended consistent with small bowel obstruction, recommend Gastrografin small bowel series follow-up Nonspecific colitis pattern Severe thickening of the urinary bladder wall, clinical correlation advised, differential would include cystitis, bladder carcinoma not excluded, follow-up imaging recommended including urinary bladder sonography Pneumonia left base and right perihilar region
--- NOTE | 2024-11-17 13:02 | PC.NURSE ---
Dr. Hollins notified of blood in stool, called to bedside, Dr. Hollins had visual of stool, order received for bedside stool occult test, Dr. Hollins notified and determined positive
[2024-11-17] MEDS: PANTOPRAZOLE INJ 40 MG VIAL IV ×2 (14:01→20:42)
[2024-11-17] MEDS: Magnesium Sulfate 2 GM Ivpb 2 GM/50 ML BAG IV (14:01)
[2024-11-17 14:12] LABS: Hematocrit 27.3 % (41.0-53.0); Hemoglobin 9.1 g/dL (13.5-16.0)
[2024-11-17 16:34] LABS: Lactate (Lactic Acid) 1.1 mMol/L (0.4-2.0)
[2024-11-17 16:56] LABS: LDH (Lactate Dehydrogenase) 519 U/L (120-246)
[2024-11-17] MEDS: INSULIN LISPRO (AdmeLOG) 1 UNIT/0.01 ML UNIT SC (17:32)
--- NOTE | 2024-11-17 18:51 | PD.IMCONS ---
HPI Data of Consult Requesting Physician: Kj Casas MD Primary Care Provider: Physician No Primary/Family Consult Narrative Reason for consult: Possible small bowel obstruction History of present illness: 78 years old male evaluated at the request of the internal medicine team for the possibility of a small bowel obstruction Patient underwent CT scan of the abdomen pelvis without contrast because of the pelvic pain and lower abdominal pain It shows some dilated loops of small intestine Patient had 2 bowel movements Passing flatus And on NGT feeding Patient was admitted on 11/12/2024 with acute gross electrolyte abnormalities tachycardia hypotensive septic requiring endotracheal intubation to protect the airway Admitting BUN/creatinine was 136 and 6.0 with a glucose of 1121 Patient required hemodialysis currently off the hemodialysis Patient has a history of CABG CVA hyperlipidemia is also found to have Hemoccult positive stool cc:: cc: Kj Casas MD Review of Systems Review of Systems ROS Unobtainable: unobtainable due to medical condition Past Medical History Surgical History OTHER SURGICAL HX: As in the history of present illness Meds Home Medications and Allergies Allergies Allergy/AdvReac Type Severity Reaction Status Date / Time No Known Allergies Allergy Verified 10/02/24 15:42 Exam Vital Signs Temp Pulse Resp BP Pulse Ox O2 Del Method O2 Flow Rate 97.0 F 90 24 H 110/57 L 99 Room Air 1 11/17/24 16:00 11/17/24 18:00 11/17/24 18:00 11/17/24 18:00 11/17/24 18:00 11/17/24 16:00 11/17/24 08:00 FiO2 30 11/16/24 08:00 Constitutional Comments: Chronically ill-appearing Routine HEENT Exam Comments: NGT in place for feeding Routine Abdominal Exam Comments: Soft nontender positive bowel sounds Results Labs 11/17/24 13:58 11/17/24 04:58 Labs: Short CBC 11/17/24 11/17/24 Range/Units 04:58 13:58 WBC 5.1 (3.8-10.6) Thou/mm3 Hgb 8.9 L 9.1 L (13.5-16.0) g/dL Hct 27.2 L 27.3 L (41.0-53.0) % Plt Count 21 L* D (140-440) Thou/mm3 BMP 11/17/24 04:58 Sodium 147 H Potassium 3.4 D Chloride 113 H Carbon Dioxide 20.4 BUN 62 H Creatinine 3.7 H D Glucose 94 Calcium 6.9 L Liver Function 11/17/24 Range/Units 04:58 Total Bilirubin 0.2 L (0.3-1.2) mg/dL AST 94 H (0-34) U/L ALT 50 H (10-49) U/L Alkaline Phosphatase 132 H (46-116) U/L Albumin 2.6 L (3.4-4.8) gm/dL ABG Interpretation ABG results: 11/12/24 11/12/24 11/13/24 15:00 22:55 01:40 ABG pH 7.19 L* 7.30 L D ABG pCO2 35 115 H* D ABG pO2 471 H 23 L* D ABG HCO3 14 L 57 H ABG O2 Saturation 100 H 38 L ABG Base Excess -14 L 26 H VBG pH 7.17 L VBG pCO2 22 L VBG pO2 92 H VBG Base Excess -19 L 11/13/24 11/13/24 11/13/24 03:18 12:06 23:50 ABG pH 7.33 L 7.40 7.28 L D ABG pCO2 32 D 37 31 L ABG pO2 202 H D 227 H D 195 H D ABG HCO3 17 L 23 15 L ABG O2 Saturation 100 H 100 H 100 H ABG Base Excess -8 L -2 -11 L VBG pH VBG pCO2 VBG pO2 VBG Base Excess 11/14/24 11/15/24 11/16/24 04:10 04:35 04:22 ABG pH 7.30 L 7.36 7.50 H D ABG pCO2 35 36 28 L ABG pO2 104 D 74 L D 114 H D ABG HCO3 17 L 20 21 ABG O2 Saturation 99 H 96 100 H ABG Base Excess -9 L -5 L -1 VBG pH VBG pCO2 VBG pO2 VBG Base Excess Assessment and Plan Additional Assessment & Plan Additional Plan: # Possible ileus but no evidence on clinical exam of small bowel obstruction No need for a small bowel follow-through at this time Continue NGT feeding If the gastric residue increases and patient vomits we will consider doing a small bowel follow-through at that time Would suggest Reglan 5 mg IV push Q6 Will monitor the patient closely # Hemoccult positive stool We will consider doing an upper endoscopy prior to discharge and possible colonoscopy once patient's condition improves Other medical problems include # Acute renal failure requiring hemodialysis now off the hemodialysis # Status post DKA # Status post CABG # IDDM # Status post CVA Thank you once again for the opportunity to participate in the care of this patient Procedures Arterial Line Size (Gauge): 20
[2024-11-17] MEDS: METOCLOPRAMIDE INJ 5 MG/ML VIAL 2 ML IVP (19:37)
[2024-11-18] VITALS (73 sets, daily range): BP systolic 55–111; BP diastolic 35–69; PULSE 74–105; RESP 16–40; TEMP 36.2–36.7; O2SAT 81–100
[2024-11-18] MEDS: INSULIN LISPRO (AdmeLOG) 1 UNIT/0.01 ML UNIT SC ×4 (00:36→17:59)
[2024-11-18] MEDS: METOCLOPRAMIDE INJ 5 MG/ML VIAL 2 ML IVP ×2 (00:37→06:08)
[2024-11-18 06:45] LABS: Basophils % (Auto) 0 % (0-2.5); Eosinophils % (Auto) 0 % (0-10); Mean Corpuscular Volume 90 fL (80-100); Monocytes # (Auto) 0.1 Thou/mm3 (0.0-0.8); Monocytes % (Auto) 2 % (0-12); Neutrophils # (Auto) 4.9 Thou/mm3 (1.8-7.7); White Blood Count 5.4 Thou/mm3 (3.8-10.6)
[2024-11-18 06:47] LABS: Hemoglobin 9.2 g/dL (13.5-16.0); Immature Granulocytes % (Auto) 1 % (0-0); Immature Granulocytes Auto 0.04 Thou/mm3 (0.00-0.00); Lymphocytes # (Auto) 0.3 Thou/mm3 (1.0-4.8); Lymphocytes % (Auto) 6 % (10-50); Mean Corpuscular HGB Conc 32.9 g/dl (31.0-37.0); Mean Corpuscular Hemoglobin 29.7 pg (25.0-35.0); Neutrophils % (Auto) 91 % (37-80); Nucleated Red Blood Cell # 0.05 Thou/mm3 (0.00-0.00); Nucleated Red Blood Cell % 1 /100 WBC (0); RDW Standard Deviation 50.4 fL (35.1-43.9)
[2024-11-18 06:48] LABS: Platelet Count 33 Thou/mm3 (140-440)
[2024-11-18 06:49] LABS: Slide Review Platelets confirmed
[2024-11-18 06:51] LABS: Alanine Aminotransferase 44 U/L (10-49); Albumin, Serum 2.5 gm/dL (3.4-4.8); Albumin/Globulin Ratio 1.3 (1.2-2.2); Alkaline Phosphatase 130 U/L (46-116); Anion Gap 16 (7-16); Aspartate Amino Transferase 61 U/L (0-34); BUN/Creatinine Ratio 17 Ratio (12-20); Bilirubin,Total 0.2 mg/dL (0.3-1.2); Blood Urea Nitrogen 67 mg/dL (9-23); Calcium (Corrected) 8.2 mg/dL (8.5-10.1); Carbon Dioxide 16.1 mMol/L (20.0-31.0); Chloride 117 mMol/L (98-107); Creatinine (Component) 3.9 mg/dL (0.6-1.3); Estimated Creatinine Clearance 16.4 mL/min (>60); Globulin 1.9 gm/dL (2.3-3.5); Glucose 207 mg/dL (74-106); Osmolality,Calculated 321 (275-295); Phosphorous 4.6 mg/dL (2.4-5.1); Potassium 3.1 mMol/L (3.4-5.1); Sodium 149 mMol/L (136-145); Total Protein 4.4 gm/dL (5.7-8.2); eGFR 15 See Note
--- NOTE | 2024-11-18 07:48 | PC.CC ---
Late Entry 11/17/24 Rounding note: Pt remains in ICU.
--- NOTE | 2024-11-18 08:48 | ESPR_ITS ---
Documentation for date of: 11/18/24 Subjective Subjective Interval history: Chart review done Mr. Robertson is a 78-year-old gentleman with extensive past medical history of hypertension, dyslipidemia, coronary artery disease status post CABG, stroke, drug abuse presented to the emergency department brought in by ambulance with altered mental status. In the emergency department patient was hypothermic with a temp of 93.9. Patient was given Joby hugger. Labs showed WBC 16, hemoglobin 12.7, platelets 208. ABG showing pH 7.19, pCO2 35, pO2 471, HCO3 14. Chemistry showing sodium 141, potassium 6.3, bicarbonate less than 10, BUN 117, creatinine 5.6, glucose 1213, lactic acid 4.8, phosphorus 11.5, magnesium 3.5, AST 46, ALT 27, alk phos 144, CK5 020, troponin 0.045, albumin 2.9, Pro-Camilo 49.3, lipase 292, beta hydroxy 3.3 urinalysis shows significant pyuria, urine tox screen positive for amphetamines. Chest x-ray showed no pneumonia. CT abdomen showed pneumonia, proctitis, kidneys with no hydronephrosis. Patient received 3L of NS at ED, calcium gluconate, ceftriaxone. At ED patient's BP dropped significantly after being warmed prompting initiation of Levophed via peripheral line until central line was placed, patient was also intubated for airway protection. Patient was admitted to ICU for further evaluation and care of septic shock/ DKA with severe metabolic derangements, and NEELAM. CT imaging of head, chest/abdomen/pelvis were pending. Patient was started on insulin. Renal consultation requested for metabolic acidosis, acute renal failure. Currently seen in the emergency department. Dr. Muñoz and team are planning to place a central line. 11/13/2024 patient currently seen in ICU. Urine output still remains very low. This morning patient had significant electrolyte imbalance, intractable metabolic acidosis that I had to do emergency dialysis. However osmolality dropped significantly and I spoke to Dr. Muñoz-planning for 3% hypertonic saline. Patient remains ventilated. 11/15/2023 patient currently seen in ICU. On pressors. Remains on the ventilator. Currently on dialysis. WBC 6.7, hemoglobin 9.3, platelets 23. Sodium 145, potassium 5.4, BUN 65, creatinine 3.6, blood sugar 395, osmolality 318, calcium 8.4, LFTs normal, albumin 2.8, echocardiogram showed ejection fraction 50 to 55%. Sputum cultures positive for Staph aureus. Urine cultures positive for Proteus mirabilis. Patient currently on ceftriaxone 11/17/2023 patient currently seen in ICU. Off ventilator. Off pressors. Decided to hold off on dialysis as patient made 720 mL of urine. Patient still has a significant cyanosis in both hands and feet. Afraid he is going to develop gangrene. Dialysis catheter, central line were removed. 11/18/2023 patient currently seen in ICU. Off ventilator. Off pressors. Currently on tube feeds at 30 mL/h. Clinically looks rather dehydrated. Significant cyanosis with blisters noted worse in the left hand and feet. Dr. Carlin was consulted. Urine output decreased. Will hold off on dialysis. Gentle IV fluids will be given today. Spoke to ICU team. Review of Systems Review of Systems Narrative Review of Systems: Limited due to his mentation. Patient just yawning with no gag reflex. Awake. Exam Vital Signs Temp Pulse Resp BP Pulse Ox O2 Del Method O2 Flow Rate 36.4 C 89 21 H 99/62 97 Room Air 1 11/18/24 04:16 11/18/24 07:00 11/18/24 07:00 11/18/24 07:00 11/18/24 07:00 11/18/24 04:16 11/17/24 08:00 FiO2 30 11/16/24 08:00 Narrative Exam GENERAL APPEARANCE: Patient in ICU. Extubated CARDIOVASCULAR: Heart regular, no murmurs LUNGS/CHEST: Few rhonchi noted bilaterally ABDOMEN: Soft, nontender, nondistended. No masses. Normal bowel sounds. EXTREMITIES: No edema, clubbing or cyanosis. 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 MUSCULOSKELETAL: In bed NEUROLOGICAL : Alert and awake Objective Labs 11/18/24 06:08 11/18/24 06:08 Labs: Laboratory Results - last 24 hr 11/17/24 11/17/24 11/17/24 05:00 13:58 16:28 WBC RBC Hgb 9.1 L Hct 27.3 L MCV MCH MCHC RDW Std Deviation Plt Count Neut % (Auto) Lymph % (Auto) Alexander % (Auto) Eos % (Auto) Baso % (Auto) Neut # (Auto) Lymph # (Auto) Alexander # (Auto) Eos # (Auto) Baso # (Auto) Immature Gran # (Auto) Absolute Nucleated RBC Immature Gran % Nucleated RBC % Sodium Potassium Chloride Carbon Dioxide Anion Gap BUN Creatinine Estim Creat Clear Calc eGFR BUN/Creatinine Ratio Glucose Calculated Osmolality Lactic Acid 1.1 Calcium Corrected Calcium Phosphorus Magnesium Total Bilirubin AST ALT Alkaline Phosphatase Lactate Dehydrogenase 519 H Total Protein Albumin Globulin Albumin/Globulin Ratio Lipase 28 Misc Test Result 11/18/24 06:08 WBC 5.4 RBC 3.10 L Hgb 9.2 L Hct 28.0 L MCV 90 MCH 29.7 MCHC 32.9 RDW Std Deviation 50.4 H Plt Count 33 L D Neut % (Auto) 91 H Lymph % (Auto) 6 L Alexander % (Auto) 2 Eos % (Auto) 0 Baso % (Auto) 0 Neut # (Auto) 4.9 Lymph # (Auto) 0.3 L Alexander # (Auto) 0.1 Eos # (Auto) 0.0 Baso # (Auto) 0.0 Immature Gran # (Auto) 0.04 H Absolute Nucleated RBC 0.05 H Immature Gran % 1 H Nucleated RBC % 1 H Sodium 149 H Potassium 3.1 L Chloride 117 H Carbon Dioxide 16.1 L Anion Gap 16 BUN 67 H Creatinine 3.9 H Estim Creat Clear Calc 16.4 L eGFR 15 L BUN/Creatinine Ratio 17 Glucose 207 H D Calculated Osmolality 321 H Lactic Acid Calcium 7.0 L Corrected Calcium 8.2 L Phosphorus 4.6 Magnesium 2.0 Total Bilirubin 0.2 L AST 61 H ALT 44 Alkaline Phosphatase 130 H Lactate Dehydrogenase Total Protein 4.4 L Albumin 2.5 L Globulin 1.9 L Albumin/Globulin Ratio 1.3 Lipase Misc Test Result Platelets confirmed ABG Interpretation ABG results: 11/12/24 11/12/24 11/13/24 15:00 22:55 01:40 ABG pH 7.19 L* 7.30 L D ABG pCO2 35 115 H* D ABG pO2 471 H 23 L* D ABG HCO3 14 L 57 H ABG O2 Saturation 100 H 38 L ABG Base Excess -14 L 26 H VBG pH 7.17 L VBG pCO2 22 L VBG pO2 92 H VBG Base Excess -19 L 11/13/24 11/13/24 11/13/24 03:18 12:06 23:50 ABG pH 7.33 L 7.40 7.28 L D ABG pCO2 32 D 37 31 L ABG pO2 202 H D 227 H D 195 H D ABG HCO3 17 L 23 15 L ABG O2 Saturation 100 H 100 H 100 H ABG Base Excess -8 L -2 -11 L VBG pH VBG pCO2 VBG pO2 VBG Base Excess 11/14/24 11/15/24 11/16/24 04:10 04:35 04:22 ABG pH 7.30 L 7.36 7.50 H D ABG pCO2 35 36 28 L ABG pO2 104 D 74 L D 114 H D ABG HCO3 17 L 20 21 ABG O2 Saturation 99 H 96 100 H ABG Base Excess -9 L -5 L -1 VBG pH VBG pCO2 VBG pO2 VBG Base Excess Assessment & Plan Additional Assessment & Plan Additional Plan: Mr. Robertson is a 78-year-old gentleman with multiple medical problems presented with- # ARF secondary to prerenal azotemia with diabetic ketoacidosis and septic shock-needing dialysis #Hyperkalemia #Hyperosmolar hyperchloremic hypernatremia -corrected for blood sugar 1200 is 164 --- slowly improved to 145 #Hypermagnesemia #Hyperphosphatemia # Anion gap metabolic acidosis-intractable needing dialysis #Lactic acidosis. # Hypoxic respiratory failure # Metabolic encephalopathy Spoke to Dr. Muñoz- Patient had minimal urine. Will hold off on dialysis. Dialysis catheter was removed. Patient with significant cyanotic changes in the lower extremities and gangrene. -Off pressors. Prognosis remains guarded. Family should consider comfort care. Long-term prognosis poor Procedures Arterial Line Size (Gauge): 20
[2024-11-18] MEDS: POTASSIUM CHLORIDE 10% 20 MEQ/15 ML UDC 40 MEQ GT (08:55)
[2024-11-18] MEDS: AMPICILLIN/SULBAC INJ 3 GM in SODIUM CHLORIDE 0.9% (P) 100 ML IV ×2 (08:55→21:38)
[2024-11-18] MEDS: PANTOPRAZOLE INJ 40 MG VIAL IV ×2 (08:55→21:38)
[2024-11-18] MEDS: CITRIC ACID/SODIUM CITR 15 ML UDC (BICITRA) 30 ML PO ×2 (09:22→21:38)
[2024-11-18] MEDS: INSULIN GLARGINE (Lantus) 5 UNIT/0.05 ML (PER 5 UNITS) 20 UNIT SC (10:29)
[2024-11-18] MEDS: CALCIUM CARBONATE 600 MG TABLET PO (10:29)
--- NOTE | 2024-11-18 10:35 | PC.CC ---
Rounding note: Pt remains in ICU. Needs D/c plan, possible SNF.
[2024-11-18 11:03] LABS: Creatine Kinase 1933 U/L (34-171)
[2024-11-18] MEDS: RINGERS LACTATED 1000 ML 1,000 ML 70 ML IV (12:41)
--- NOTE | 2024-11-18 13:33 | ESPR_ITS ---
<Statement entered by Patrick Hollins DO - 11/18/24 23:48> Senior attestation: Patient was examined and case was reviewed with team including attending physician. Note reviewed, I agree with most of its contents and agree with the patient's care. No overnight events reported, patient able to follow commands this morning such as closing his eyes and wiggling right toes. CT abdomen pelvis yesterday revealed suspicion for small bowel obstruction, however patient has been able to pass bowel movements, Reglan will be stopped. GI following, no plans for GI procedures at this time given patient's clinical status. General surgeon Dr. Carlin consulted for possible debridement or intervention on patient's bilateral feet and hands, we appreciate recommendations. May have to consider orthopedic consultation if advised. MRI head has been ordered to further investigate patient's mentation, as he is not baseline per patient's . At bedside today, Dr. Hollins (PGY-3) and Dr. Bansal (PGY-1) spoke to patient's Omero and friend Julia, gave updates on patient's prognosis and management plan, all questions answered to their satisfaction. At time, patient's and decision maker Omero wishes to keep patient DNR/DNI, but to continue medical treatment to see if there is any improvement in patient's condition. Patrick Hollins DO PGY-3 Documentation for date of: 11/18/24 Subjective Subjective Interval history: Interval history: 11/13/2024; patient was seen and examined by bedside, overnight patient underwent HD dialysis catheter placement and arterial line placement, U-Tox was noted for methamphetamine, head CT was negative for acute bleed/midline shift, C/A/P CT was only noted for bibasilar pneumonia along with cholelithiasis and rectal wall thickening given concern for proctitis. Patient is intubated and sedated, there was concern for overcorrection of hyponatremia in light of rapid sodium correction there was concern for increased ICP/cerebral edema, Optic nerve US was done on patient's right eye, diameter was noted to be 8.5mm. Could not reach patient's family today 11/14/2024; Patient seen and examined by bedside, completed HD on high hemodynamic support. Ucx showed proteus mirabilis that was pansensitive, Zosyn was de-escalated to Ceftriaxone, with continuation of Doxycycline. Repeat Ocular US for optic nerve US noted for decrease in diameter from 8.5 to 4.7mm. discussed patient's condition with DNR status established. Insulin drip discontinued and patient was given Insulin glargine 30units, wbc count normalized, PLT count continues to drop but his 4T score showed low probability for HIT, will continue to monitor as thrombocytopneia likely to improve as sepsis resolves. 11/15/2024; patient seen and examined at bedside, sedation weaning to try to determine mental status, patient grimacing occasionally to pain otherwise not responsive. Thrombocytopenia likely multifactorial, however heparin stopped peripheral smear and heparin antibody test sent. Plan for HD today. 11/16/2024: Patient seen and examined at bedside, was weaned off of sedation yesterday, currently spontaneous breathing trial in progress, patient's mentation has improved remarkably, patient is responding to commands, tracks with eyes, plan to extubate patient today. Overnight patient did have episode of hypoglycemia, blood glucose 66 this morning, was given 2 Amps of D50, started on feeding via NG tube, will hold Lantus. Will continue pressors with goal to maintain MAP more than 70 underlying concern of cerebral edema, will assess neurological symptom comprehensively once patient is more awake and alert. Sputum culture significant for staph, urine culture shows pansensitive Proteus patient's antibiotic regimen optimized to Unasyn, ceftriaxone and doxycycline discontinued. Plan is to extubate patient and monitor for now, will maintain MAP more than 70, continue pressors. 11/17/2024: Patient was seen and examined at bedside. Overnight patient was started on Levophed due to MAP below 70, today he was tapered down and was able to maintain MAP of 65-70 without pressors. He was extubated yesterday without any complications, was placed on 2 L oxy mask with saturation 100%. Today he is doing fine and has no complaints, his mental status remained the same, he is able to follow simple commands. Patient is unable to raise his upper extremities and has extremely weak gag reflex when suctioned. He is building up a lot of mucus in his throat and will be suctioned frequently. Patient has suprapubic tenderness, bladder scan did not show any urinary retention or obstructions, Ferraro catheter was replaced. Per nephrology patient does not need hemodialysis anymore as his urine output now 750 cc. Yesterday his art line and central line were removed, today we removed Vas-Cath. His glucose today in 120s, will continue holding glargine for today. PLT is improving, today at 21. 11/18/2024: Patient seen and examined at bedside. Patient is status post extubation due to, currently saturating well on room air, patient's mentation continues to remain the same, is able to respond to simple commands, nonconversational, has extremely weak gag reflex, gurgling noted with excessive mucus. Patient had CT abdomen pelvis without contrast done yesterday shows left base pneumonia, mild ascites, partial small bowel obstruction, colitis and cystitis. Patient is on Unasyn for optimization of pneumonia and cystitis treatment, patient did have a bowel movement yesterday around 5 PM and another bowel movement was noted this morning at 5 AM, bowel movements continues to be blood-tinged. Patient will be given 1 L LR maintenance fluids today, ordered MRI brain to further investigate patient's poor mentation and patient was started on calcium carbonate. General surgery consulted for significant necrosis of hand and feet. Significant swelling and blisters noted on the left hand. Platelet count has improved, will continue to monitor patient. Patient's and 's friend at bedside updated about patient's medical condition and all ongoing medical problems. Exam Vital Signs Temp Pulse Resp BP Pulse Ox O2 Del Method O2 Flow Rate 97.6 F 85 22 H 92/57 L 97 Room Air 1 11/18/24 12:00 11/18/24 13:00 11/18/24 13:00 11/18/24 13:00 11/18/24 13:00 11/18/24 12:00 11/18/24 08:52 FiO2 30 11/16/24 08:00 Narrative Exam Gen: Well-developed male in no acute distress. HEENT: NCAT, PERRLA, EOMI, MMM, anicteric conjunctivae. CVS: normal S1 and S2. RRR. No M/R/G. Resp: coarse breath features due to mucus buildup in upper airways. No rhonchi, rales, crackles or wheezing. Abd: soft, tender in suprapubic region, non-distended. BS+ in all 4 quadrants. MSK: Good ROM in BUE & BLE. No edema or rash. Muscle wasting noted on BLE. BUE and BLE purpulish discoloration noted along with cold extremities, especially tips of toes and fingers. Significant swelling and blisters noted in left upper extremity. Neuro: Awake, able to follow simple commands, unable to talk, very weak gag reflex. Limited exam due to patient's mentation. Objective Labs 11/18/24 06:08 11/18/24 06:08 Labs: Laboratory Results - last 24 hr 11/17/24 11/17/24 11/18/24 13:58 16:28 06:08 WBC 5.4 RBC 3.10 L Hgb 9.1 L 9.2 L Hct 27.3 L 28.0 L MCV 90 MCH 29.7 MCHC 32.9 RDW Std Deviation 50.4 H Plt Count 33 L D Neut % (Auto) 91 H Lymph % (Auto) 6 L Crowley % (Auto) 2 Eos % (Auto) 0 Baso % (Auto) 0 Neut # (Auto) 4.9 Lymph # (Auto) 0.3 L Crowley # (Auto) 0.1 Eos # (Auto) 0.0 Baso # (Auto) 0.0 Immature Gran # (Auto) 0.04 H Absolute Nucleated RBC 0.05 H Immature Gran % 1 H Nucleated RBC % 1 H Sodium 149 H Potassium 3.1 L Chloride 117 H Carbon Dioxide 16.1 L Anion Gap 16 BUN 67 H Creatinine 3.9 H Estim Creat Clear Calc 16.4 L eGFR 15 L BUN/Creatinine Ratio 17 Glucose 207 H D Calculated Osmolality 321 H Lactic Acid 1.1 Calcium 7.0 L Corrected Calcium 8.2 L Phosphorus 4.6 Magnesium 2.0 Total Bilirubin 0.2 L AST 61 H ALT 44 Alkaline Phosphatase 130 H Lactate Dehydrogenase 519 H Total Creatine Kinase 1933 H D Total Protein 4.4 L Albumin 2.5 L Globulin 1.9 L Albumin/Globulin Ratio 1.3 Misc Test Result Platelets confirmed ABG Interpretation ABG results: 11/12/24 11/12/24 11/13/24 15:00 22:55 01:40 ABG pH 7.19 L* 7.30 L D ABG pCO2 35 115 H* D ABG pO2 471 H 23 L* D ABG HCO3 14 L 57 H ABG O2 Saturation 100 H 38 L ABG Base Excess -14 L 26 H VBG pH 7.17 L VBG pCO2 22 L VBG pO2 92 H VBG Base Excess -19 L 11/13/24 11/13/24 11/13/24 03:18 12:06 23:50 ABG pH 7.33 L 7.40 7.28 L D ABG pCO2 32 D 37 31 L ABG pO2 202 H D 227 H D 195 H D ABG HCO3 17 L 23 15 L ABG O2 Saturation 100 H 100 H 100 H ABG Base Excess -8 L -2 -11 L VBG pH VBG pCO2 VBG pO2 VBG Base Excess 11/14/24 11/15/24 11/16/24 04:10 04:35 04:22 ABG pH 7.30 L 7.36 7.50 H D ABG pCO2 35 36 28 L ABG pO2 104 D 74 L D 114 H D ABG HCO3 17 L 20 21 ABG O2 Saturation 99 H 96 100 H ABG Base Excess -9 L -5 L -1 VBG pH VBG pCO2 VBG pO2 VBG Base Excess Quality Measures Quality Measures VTE prophylaxis Advance care planning discussed with:: patient Assessment & Plan Assessment Current Active Medications: Generic Name Dose Route Start Last Admin Trade Name Freq PRN Reason Stop Dose Admin Acetaminophen 650 mg 11/13/24 13:41 11/13/24 14:10 Acetaminophen Supp 650 Mg Supp WA 12/13/24 13:40 650 mg Q6HR PRN Administration Pain Or Fever > 100.4 Protocol Acetaminophen 650 mg 11/14/24 17:47 11/14/24 17:56 Acetaminophen Hayde 325 Mg/10 Ml Udc GT 12/13/24 20:48 650 mg Q6HR PRN Administration Fever > 100.4 Calcium Carbonate 600 mg 11/18/24 10:30 11/18/24 10:29 Calcium Carbonate 600 Mg Tablet PO 12/18/24 10:29 600 mg QDAY MARIE Administration Citric Acid/Sodium Citrate 30 ml 11/18/24 09:00 11/18/24 09:22 Citric Acid/Sodium Citr 15 Ml Udc (Bicitra) PO 12/18/24 08:59 30 ml BID MARIE Administration Dextrose 25 ml 11/15/24 08:58 11/16/24 11:14 Dextrose 50%-Water Inj 50 Ml Syringe IV 12/15/24 08:57 25 ml Q15MIN PRN Administration BG 50-70 responsive npo pt Dextrose 50 ml 11/15/24 08:58 11/16/24 05:10 Dextrose 50%-Water Inj 50 Ml Syringe IV 12/15/24 08:57 50 ml Q15MIN PRN Administration BG <50 OR BG <70 & pt unresponsive Glucagon 1 mg 11/15/24 08:58 Glucagon Inj 1 Mg Vial IM Q15MIN PRN BG <70, and no IV access Heparin Sodium (Porcine) 2,500 unit 11/13/24 06:00 11/15/24 11:00 Heparin Sod Inj 1000 Unit/Ml [facility] 10 Ml [facility] 11/27/24 05:59 2,500 unit PRN PRN Administration CLOTTING PREVENTION Heparin Sodium (Porcine) 2,500 unit 11/13/24 09:20 11/15/24 14:23 Heparin Sod Inj 1000 Unit/Ml Vial 10 Ml [facility] 11/27/24 09:19 2,500 unit PRN PRN Administration DIALYSIS Propofol 1,000 mg in 100 mls @ 2.177 mls/hr 11/12/24 18:01 11/15/24 09:00 Diprivan Ivpb IV 12/12/24 18:00 0 mcg/kg/min .Q24H PRN 0 mls/hr PER PROTOCOL Titration Protocol 5 MCG/KG/MIN Insulin Human Regular 100 unit in 100 mls @ 7.258 mls/hr 11/12/24 19:36 11/14/24 16:00 Myxredlin IV 12/12/24 19:35 0 unit/kg/hr .[id number] PRN 0 mls/hr PER PROTOCOL Titration Protocol 0.1 UNIT/KG/HR Vasopressin/Sodium Chloride 20 unit in 100 mls @ 9 mls/hr 11/12/24 22:30 11/16/24 18:49 Vasostrict/Ns Ivpb IV 12/12/24 22:29 0 unit/min .[id number] PRN 0 mls/hr PER PROTOCOL Titration Protocol 0.03 UNIT/MIN Albumin Human 25 gm in 100 mls @ 100 mls/min 11/13/24 04:54 11/14/24 17:00 Albuminar-25 Ivpb IV Infused PRN PRN Infusion DIALYSIS Ampicillin Sodium/Sulbactam 100 mls @ 200 mls/hr 11/16/24 12:00 11/18/24 10:00 Sodium 3 gm/ Sodium Chloride IV 11/23/24 11:59 Infused Q12HR MARIE Infusion Norepinephrine Bitartrate 16 mg in 250 mls @ 3.402 mls/hr 11/17/24 09:59 Levophed In Ns 16mg/250ml IV 12/13/24 01:46 .Q24H PRN PER PROTOCOL Protocol 0.05 MCG/KG/MIN Lactated Ringer's 1,000 mls @ 70 mls/hr 11/18/24 12:23 11/18/24 12:41 Lactated Ringers IV 11/19/24 02:40 70 mls/hr .[id number] MARIE Administration Insulin Glargine 20 unit 11/18/24 09:00 11/18/24 10:29 Insulin Glargine (Lantus) 5 Unit/0.05 Ml (Per 5 Units) SC 12/18/24 08:59 20 unit QDAY MARIE Administration Insulin Human Lispro 0 unit 11/15/24 12:00 11/18/24 12:39 Insulin Lispro (Admelog) 1 Unit/0.01 Ml Unit SC 12/15/24 11:59 4 unit Q6HR MARIE Administration Protocol Pantoprazole Sodium 40 mg 11/17/24 13:15 11/18/24 08:55 Pantoprazole Inj 40 Mg Vial IV 12/17/24 13:14 40 mg BID MARIE Administration Plan Assessment and Plan Summary: Mr. Robertson is a 78-year old male patient with PMHx of CABG, CVA, HTN, HLD, and meth/fentanyl use BIBA after he was found at home non-responsive at home, no further hx obtained at time of arrival, patient was admitted to ICU for further evaluation and care of septic shock, HHS with severe metabolic derangements, and NEELAM. Patient was intubated for airway protection, central line was placed in right IJ, ICU course was complicated as patient developed acute renal failure, had dialysis catheter placed, patient was started on hypertonic saline, there was concern of increased intracranial pressure/cerebral edema optic nerve ultrasound done on patient's right eye showed diameter 8.5 mm which eventually improved to 4.7 mm and since platelet count dropped significantly, low probability of HIT, antibody send out, will continue to monitor. Spontaneous breathing trial in progress, plan to extubate patient and monitor vitals, eventually will wean off of pressors. TRANSITION RN #Acute Encephalopathy metabolic in setting of HHS/septic shock/ Uremia. Patient was weaned off of sedation, Sedation was held yesterday 11/15, currently holding propofol and fentanyl. Patient's mental status is improved, awake, responds to pain, tracks movements with eyes, responds to commands. CT head 11/12 Negative for acute hemorrhage, mass effect or midline shift. Poor gag reflex, mentation noted, no improvement in the last 2 days Plan: - Obtain MRI brain/head - will continue to monitor patient. #Cerebral Edema. Concern of cerebral edema due to rapid correction of hyponatremia and hyperglycemia causing significant drop in osmolality. Optic nerve ultrasound done on patient's right eye showed diameter 8.5 mm which eventually improved to 4.7 mm. Was given hypertonic saline. Plan: - Maintain MAP above 65. #Methamphetamine dependence. Urine tox screen was positive for methamphetamine, patient has history of drug use. CVS #Septic Shock. Source: Bibasilar pneumonia versus urinary. Chest x-ray 11/12 shows early bibasilar pneumonia, CT chest abdomen pelvis without contrast 11/12 shows bibasilar pneumonia, cholelithiasis and abundant stool in rectum, suspicion of proctitis. UA 11/12 significant for urine protein 4+, glucose 4+, ketones 1+ 2+, leukocyte esterase positive, bacteria 1+, RBC 16, WBC 3826 Echo Findings: Normal LV size and function. Mild LVH. Estimated EF 50-55%, Normal RV size and function. Trace MR, TR. no heart failure noted Blood culture negative urine culture Proteus mirabilis prescription to ceftriaxone, sputum gram stain culture shows Staphylococcus aureus sensitive to ceftriaxone. Nasal MRSA screen negative Patient received adequate fluid resuscitation, started on pressors Levophed and vasopressin Patient was on ceftriaxone in ED on 11/12/24, Zosyn 10/3024-11/14/24, ceftriaxone 11/14/24-11/16/24 and doxycycline 11/13/24-11/16/24. Plan: - Maintain MAP >65 - Started on Unasyn 11/16/24. - Discontinued ceftriaxone and doxycycline. Resp #Acute hypoxic respiratory failure 2/2 septic shock and HHS. Patient unable to protect airway, intubated 11/12. Weaned off of sedation. spontaneous breathing trial in progress. Plan to extubate patient today. Plan: - Continue Unasyn for pneumonia. Renal # Acute renal failure in setting of septic shock. # Suspicion of ATN. # Hyperkalemia, resolved. # Hyperosmolar hyperchloremic hypernatremia. # Hypermagnesemia, resolved. # Hyperphsphatemia, resolved. # AGMA, resolved. # Uremia. # Lactic acidosis. Patient did receive aggressive volume resuscitation and septic shock and HHS Had decreased urine output, temporary dialysis catheter placed 11/13. Patient received dialysis treatment 11/13, 11/14, 11/15. Patient's urine output improving, urine output 232cc noted in the last 24 hours Hypernatremia was corrected with a goal of 6-8 in 24 hours Plan: -Will give 1 L LR maintenance fluid - hemodialysis discontinued by nephrology, will monitor urine output and labs. - Correct and replace electrolytes as needed. - Monitor intake and output strictly. - Renally dose medications. - Avoid nephrotoxic agents. - Nephrology consulted, recs appreciated. -Started on calcium carbonate ID # Septic shock in setting of UTI and pneumonia. UA 11/12 significant for urine protein 4+, glucose 4+, ketones 1+ 2+, leukocyte esterase positive, bacteria 1+, RBC 16, WBC 3826. Chest x-ray 11/12 shows early bibasilar pneumonia, CT chest abdomen pelvis without contrast 11/12 shows bibasilar pneumonia, cholelithiasis and abundant stool in rectum, suspicion of proctitis. Blood culture negative urine culture Proteus mirabilis prescription to ceftriaxone, sputum gram stain culture shows Staphylococcus aureus sensitive to ceftriaxone. Nasal MRSA screen negative. Patient received adequate fluid resuscitation, started on pressors Levophed and vasopressin. Patient was on ceftriaxone in ED on 11/12/24, Zosyn 10/3024-11/14/24, ceftriaxone 11/14/24-11/16/24 and doxycycline 11/13/24-11/16/24. Plan: - Maintain MAP >65. - Started on Unasyn 11/16/24. - Discontinued ceftriaxone and doxycycline. Heme #Anemia likely 2/2 CKD vs malnutrition. Hemoglobin 12.7, hematocrit 40.9, MCV 97, MCH 30, MCHC 31.1 on admission. Plan: - Monitor CBC daily. #Leukocytosis. WBC count 16,000 on admission. Elevation secondary to sepsis. Plan: - Treat underlying etiology. #Thrombocytopenia in setting of severe sepsis 2/2 E. Coli bacteremia/Pylonephritis, improving Possible etiology of ITP, low suspicion of DIC, HIT. Platelet count 208 on admission, platelet count down trended significantly, today platelets 17,000. Heparin was discontinued. Per pathology review peripheral blood film significant for severe thrombocytopenia likely infection or medication induced ITP heparin-induced thrombocytopenia is on differential but less likely. No delon bleeding noted. Plan: - Pending HIT antibodies. -Repeat CBC in a.m. Endo # Hyperosmolar hyperglycemic state. # Type 2 diabetes mellitus. # Anion gap metabolic acidosis. # Hypoglycemia. Patient did have elevated beta hydroxybutyrate, blood glucose significantly elevated 1213 on admission. Patient was given insulin GGT, held currently. Hemoglobin A1c 08/23/2024: 12.5. Plan: - Continue sliding scale insulin. -Lantus 20 units daily - Fingerstick blood glucose every 6 hours. - Resume enteral feeding through NG tube. GI #Elevated Lipase. CT negative for signs of pancreatitis. #GI prophylaxis. On famotidine. Integumentary # Superficial purplish discoloration, bilateral feet, knees and hands. # Necrosis noted bilateral feet, right on fingertips, Suspicion of vasopressor induced ischemia, and ischemia secondary to shock -Continue Unasyn -Consulted general surgery, appreciate recommendations Disposition: ICU, extubated and off pressors, will stay in ICU for close observation. DVT prophylaxis: SCDs. GI prophylaxis: Famotidine. Diet: NG tube. Lines: Peripheral IV. Code status: DNR lines. Lines: peripheral x2. Case discussed with Attending Dr. Muñoz and senior Dr. Hollins PGY3 Reno Bansal PGY1 Disclaimer: This note was dictated by speech recognition. Minor errors in cytopathologist may be present due to voice recognition software. Attending Provider Attestation/Addendum Patient seen and examined with above resident, Reno Bansal MD. I agree with the findings, assessment, and plan of care as documented except for any differences below. Patient continues to remain lethargic but he does open his eyes and does track. Notably continues to have significant digital ischemia in both lower extremities and hands. His left hand seems to most concerning with significant bullous formation along the volar aspect. General surgery was consulted and was considering potential I&D but will request orthopedic input given their expertise. Given the patient's mentation will continue to keep the patient in the ICU for close monitoring. Discussion with the family has been ongoing the patient was appropriately transitioned to DNR/DNI goals for continued aggressive care otherwise. Patient was to be assessed by gastroenterology but will hold off given the patient's tenuous mentation and respiratory status now. Patient will undergo MRI today to exclude presence of neurologic injury after requiring rapid correction of significant osmolarity elevation in the setting of HHS and uremia from acute renal failure. His renal function along with septic shock has started to return back to baseline below I fear that neurologic damage by heroic effort to keep him alive may have led to a loss of his baseline mentation. Patient otherwise remains on empiric antibiotics for coverage of community-acquired pneumonia. His platelet count also is improving, HIT antibodies have been sent and prophylaxis has been stopped. SCDs only. There is no evidence of acute clot warranting use of fondaparinux or argatroban at this point. Patient will likely no longer need hemodialysis though should his renal recovery fail, nephrology has also expressed concerns for his ability to participate in regular hemodialysis as an outpatient. Total critical care time: I personally spent 40 minutes for review of physiologic parameters, directing plan of care throughout the day, coordination of care with other specialists, and counseling the patient's family at bedside. This is exclusive of time spent teaching housestaff or performing any separate billable procedures. Patient continues to require critical care services for acute encephalopathy in the setting of hyperosmolar hyper glycemic nonketotic state and acute renal failure with significant uremia after resolving septic shock secondary to community-acquired pneumonia. Patient remains at significant risk for further morbidity and high risk for mortality warranting ongoing close monitoring and care when available in the intensive care unit.
--- NOTE | 2024-11-18 13:50 | PC.NURSE ---
Screening compete with Omero ramirez , per Omero patient has had triple bypass and no metal in pts body
--- NOTE | 2024-11-18 13:52 | PC.CC ---
ASW contacted by bedside RN Shanta who is attempting to make contact with pts spouse for MRI screening. [id number] attempted to contact pts spouse Omero Robertson at [phone]-phone disconnected. 1344-Call to person identified as Julia a friend for pt. ASW left voice message for call back. 1346-ASW attempted to make contact with pts spouse using secondary number at [phone], non-working number. 1347-Call back from Julia Enriquez, who states she has communicated with bedside RN and completed MRI questionnaire. ASW to remain available as needed for pt needs and staff support.
--- NOTE | 2024-11-18 16:31 | PC.NURSE ---
at 1610, patient oxygen saturation drop to 71% at lowest, Dr. Hollins notified and RT notified patient on oxymask at 6L
--- NOTE | 2024-11-18 17:16 | ESPR_ITS ---
Documentation for date of: 11/18/24 Subjective Subjective Interval history: Patient evaluated Having multiple stools Tolerating enteral feeding through the NGT Abdomen soft nontender active bowel sounds No evidence of Exam Vital Signs Temp Pulse Resp BP Pulse Ox O2 Del Method O2 Flow Rate 97.8 F 91 22 H 103/55 L 98 Room Air 1 11/18/24 16:00 11/18/24 17:00 11/18/24 17:00 11/18/24 17:00 11/18/24 17:00 11/18/24 16:00 11/18/24 08:52 FiO2 30 11/16/24 08:00 Routine Respiratory Exam Comments: Normal to auscultation Routine Abdominal Exam Comments: Soft nontender Objective Labs 11/18/24 06:08 11/18/24 06:08 Labs: Laboratory Results - last 24 hr 11/18/24 06:08 WBC 5.4 RBC 3.10 L Hgb 9.2 L Hct 28.0 L MCV 90 MCH 29.7 MCHC 32.9 RDW Std Deviation 50.4 H Plt Count 33 L D Neut % (Auto) 91 H Lymph % (Auto) 6 L [place] % (Auto) 2 Eos % (Auto) 0 Baso % (Auto) 0 Neut # (Auto) 4.9 Lymph # (Auto) 0.3 L [place] # (Auto) 0.1 Eos # (Auto) 0.0 Baso # (Auto) 0.0 Immature Gran # (Auto) 0.04 H Absolute Nucleated RBC 0.05 H Immature Gran % 1 H Nucleated RBC % 1 H Sodium 149 H Potassium 3.1 L Chloride 117 H Carbon Dioxide 16.1 L Anion Gap 16 BUN 67 H Creatinine 3.9 H Estim Creat Clear Calc 16.4 L eGFR 15 L BUN/Creatinine Ratio 17 Glucose 207 H D Calculated Osmolality 321 H Calcium 7.0 L Corrected Calcium 8.2 L Phosphorus 4.6 Magnesium 2.0 Total Bilirubin 0.2 L AST 61 H ALT 44 Alkaline Phosphatase 130 H Total Creatine Kinase 1933 H D Total Protein 4.4 L Albumin 2.5 L Globulin 1.9 L Albumin/Globulin Ratio 1.3 Misc Test Result Platelets confirmed Impressions Impression: # Ileus improving Continue current management No evidence of small bowel obstruction ABG Interpretation ABG results: 11/12/24 11/12/24 11/13/24 15:00 22:55 01:40 ABG pH 7.19 L* 7.30 L D ABG pCO2 35 115 H* D ABG pO2 471 H 23 L* D ABG HCO3 14 L 57 H ABG O2 Saturation 100 H 38 L ABG Base Excess -14 L 26 H VBG pH 7.17 L VBG pCO2 22 L VBG pO2 92 H VBG Base Excess -19 L 11/13/24 11/13/24 11/13/24 03:18 12:06 23:50 ABG pH 7.33 L 7.40 7.28 L D ABG pCO2 32 D 37 31 L ABG pO2 202 H D 227 H D 195 H D ABG HCO3 17 L 23 15 L ABG O2 Saturation 100 H 100 H 100 H ABG Base Excess -8 L -2 -11 L VBG pH VBG pCO2 VBG pO2 VBG Base Excess 11/14/24 11/15/24 11/16/24 04:10 04:35 04:22 ABG pH 7.30 L 7.36 7.50 H D ABG pCO2 35 36 28 L ABG pO2 104 D 74 L D 114 H D ABG HCO3 17 L 20 21 ABG O2 Saturation 99 H 96 100 H ABG Base Excess -9 L -5 L -1 VBG pH VBG pCO2 VBG pO2 VBG Base Excess Assessment & Plan A&P Narrative # Possible ileus but no evidence on clinical exam of small bowel obstruction No need for a small bowel follow-through at this time Continue NGT feeding If the gastric residue increases and patient vomits we will consider doing a small bowel follow-through at that time Would suggest Reglan 5 mg IV push Q6 Will monitor the patient closely # Hemoccult positive stool We will consider doing an upper endoscopy prior to discharge and possible colonoscopy once patient's condition improves Other medical problems include # Acute renal failure requiring hemodialysis now off the hemodialysis # Status post DKA # Status post CABG # IDDM # Status post CVA Thank you once again for the opportunity to participate in the care of this patient Time Spent With Patient Time: Total time spent is greater than 50% in coordination of care (as documented) at patient's floor/unit and/or counseling patient: Procedures Arterial Line Size (Gauge): 20
[2024-11-18] MEDS: Norepinephrine/D5W 8mg/250ml 8 MG/250 ML BAG 6.741 MG IV (18:26)
[2024-11-18 22:47] LABS: Base Excess -12 (-3-3); HCO3 16 mEq/L (20-26); Inspired Oxygen, FIO2 21 %; O2 Saturation 57 % (91-98); PCO2 42 mmHg (32.0-48.0)
[2024-11-18 22:55] LABS: Allen Test Performed/OK; Puncture Site Left Brachial
[2024-11-18 22:56] LABS: pH, Arterial 7.18 (7.35-7.45)
[2024-11-18 22:57] LABS: PO2 38 mmHg (83-108)
[2024-11-19] VITALS (11 sets, daily range): BP systolic 67–106; BP diastolic 35–48; PULSE 0–101; RESP 0–32; TEMP 36.8; O2SAT 80–83
[2024-11-19] MEDS: Norepinephrine/D5W 8mg/250ml 8 MG/250 ML BAG 84.932 MG IV (00:47)
[2024-11-19] MEDS: SCOPOLAMINE 1 MG TDSY TOP (01:26)
[2024-11-19] MEDS: MORPHINE SULF INJ 10 MG/ML VIAL 2 MG IVP (01:48)
--- NOTE | 2024-11-19 02:18 | PD.DPN ---
Documentation for date of: 11/19/24 Pronouncement Note Date and Time of Date of : 11/19/24 Time of : 02:20 PCOD Preliminary cause of : Cardiopulmonary arrest Summary Additional details: Called to see patient for unresponsiveness. On exam the patient was unresponsive, no spontaneous movement observed, pt did not respond to verbal or noxious stimuli. Absent heart and breath sounds for more than 2 minutes. Pupils are fixed and dilated, corneal reflex was absent. Patient pronounced at [02:20, 24hr format]. Dr. Tai notified after. Additional Data Confirmation of : no pulse, no respirations, no heart sounds and pupils fixed and dilated Family: at bedside Attending/PCP notified?: Yes Attending physician: Doug Tai MD Was code activated?: No Autopsy requested?: No property insurance claims examiner notified?: No Organ bank notified?: No Advance directives: No
[2024-11-19 06:48] LABS: Heparin-Induced PLT AB WEAK POSITIVE (NEGATIVE)
--- NOTE | 2024-11-20 13:32 | DES_ITS ---
<Statement entered by Pierre Muñoz MD - 11/23/24 14:20> I have reviewed and agree with the above documentation. Patient survived initial hyperosmolar nonketotic state and septic shock however with significant distal limb ischemia due to high vasopressor requirement in the setting of pre- existing peripheral vascular disease. Patient with multiple necrotic digits in both hands as well as feet. Likely to have evolving sepsis and worsening without amputation. Patient's family understanding of his continued slow decline after a few days of extubation in the setting of likely component of neurologic damage from hyperosmolar state and required rapid reversal with hemodialysis and resuscitation efforts. Given poor functional outcome and high likelihood for further morbidity, patient's family elected to focus on comfort alternatively to reversal of underlying disease. Patient was transitioned to comfort care and overnight. <Statement entered by Patrick Hollins DO - 11/22/24 21:17> Senior attestation: Patient was examined and case was reviewed with team including attending physician. Note reviewed, I agree with its contents. As detailed in the summary, patient was placed on comfort measures and as noted in the pronouncement note. Patrick Hollins DO PGY-3 Documentation for date of: 11/20/24 Summary Date and Time Date of admission: 11/12/24 19:53 Date of : 11/19/24 Time of : 02:20 Summary Details: Called to see patient for unresponsiveness. On exam the patient was unresponsive, no spontaneous movement observed, pt did not respond to verbal or noxious stimuli. Absent heart and breath sounds for more than 2 minutes. Pupils are fixed and dilated, corneal reflex was absent. Date of : 11/19/24 Time of : 02:20 Hospital Course: Mr. Robertson is a 78-year-old male with past medical history of CABG, CVA, hypertension, hyperlipidemia and meth/fentanyl use who was brought in by ambulance after he was found at home nonresponsive, eventually patient was hospitalized and admitted to intensive care unit for acute hypoxic respiratory failure, septic shock, acute renal failure and acute encephalopathy. Patient was intubated, started on IV pressors in setting of septic shock, was started on IV antibiotics, CT scan of head was negative for any acute hemorrhage CT abdomen pelvis showed bibasilar pneumonia with suspicion of aspiration pneumonia repeat abdomen pelvis CT showed suspicion of cystitis. Patient's ICU course was complicated with high pressor requirement due to underlying septic shock, causing ischemia and necrosis of superficial hands and feet. Patient was extubated, postextubation patient had poor gag reflex, MRI of head was ordered. During the hospital course, patient's was updated on patient's poor prognosis, as patient's condition declined she was updated and she requested to transition patient to comfort care, patient was placed on comfort care and eventually . Time of 11/19/24 02:20. Patient's was informed. Case discussed with Attending Dr. Muñoz and Dr. Hollins PGY3. Reno Bansal PGY1 Additional Data Confirmation of as documented by pronouncing clinician: no pulse, no respirations, no heart sounds and pupils fixed and dilated Family: at bedside Attending/PCP notified?: Yes Attending physician: Wanda Jay MD Visit Providers Provider Primary care physician: Physician No Primary/Family Consults: 11/12/24 15:56 Consult to Nephrology Stat Comment: Consulting Provider: Ellis Murillo 11/17/24 18:33 Consult to Gastroenterology Stat Comment: Consulting Provider: Richard Maxwell 11/18/24 10:27 Consult to General Surgery Stat Comment: Consulting Provider: Kati Carlin Discharge Plan Plan Patient Disposition: Disposition Comment: Critical Prescriptions/Referrals Referrals: No Primary/Family,Physician [Primary Care Provider] - Patient/Caregiver Discharge Instructions Print Language: Sammarinese Discharge Order Discharge Orders: Discharge (Routine); Ordered 11/19/24 Ordered By: Abhi Bullard
== END 2024-11-19 02:20 | disposition expired | DRG 871 ==
LOC: SERX 16:12 → SERHOLD 20:12 → S2SX 11-13 02:26 → SERHOLD 11-13 12:59
PROVIDERS: Internal Medicine; Registered Nurse General Practice; Student in an Organized Health Care Education/Training Program; Admitting Provider Internal Medicine Critical Care Medicine; Emergency Provider Emergency Medicine; Visit Provider Internal Medicine
DX: A41.9 Sepsis, unspecified organism (principal); E11.10 Type 2 diabetes mellitus with ketoacidosis without coma; G93.41 Metabolic encephalopathy; R65.21 Severe sepsis with septic shock; J96.01 Acute respiratory failure with hypoxia; J18.9 Pneumonia, unspecified organism; N17.9 Acute kidney failure, unspecified; E87.0 Hyperosmolality and hypernatremia; N12 Tubulo-interstitial nephritis, not specified as acute or chronic; K56.7 Ileus, unspecified; I10 Essential (primary) hypertension; Z95.1 Presence of aortocoronary bypass graft; E78.5 Hyperlipidemia, unspecified; Z86.73 Personal history of transient ischemic attack (TIA), and cerebral infarction without residual deficits; F15.90 Other stimulant use, unspecified, uncomplicated; E87.5 Hyperkalemia; E87.8 Other disorders of electrolyte and fluid balance, not elsewhere classified; E83.41 Hypermagnesemia; D69.59 Other secondary thrombocytopenia; D64.9 Anemia, unspecified; B96.4 Proteus (mirabilis) (morganii) as the cause of diseases classified elsewhere; Z66 Do not resuscitate; E83.39 Other disorders of phosphorus metabolism; E11.649 Type 2 diabetes mellitus with hypoglycemia without coma; I25.10 Atherosclerotic heart disease of native coronary artery without angina pectoris; I46.9 Cardiac arrest, cause unspecified
CPT/HCPCS: 36415; 36600; 70450; 71045; 71250; 74018; 74176; 80053; 80069; 80074; 80076; 80307; 81001; 82010; 82247; 82248; 82550; 82803; 83605; 83615; 83690; 83735; 83880; 84100; 84145; 84295; 84484; 85014; 85018; 85025; 85610; 85730; 86022; 86706; 87040; 87077; 87081; 87086; 87186; 87205; 87502; 87811; 93005; 93306; 94002; 94003; 96365; 96367; 99285; J0295; J0612; J0696; J1643; J1815; J2270; J2470; J2543; J2598; J2704; J2765; J2997; J3010; J3475; J3490; J7030; J7042; J7050; J7060; J7120; J7131; P9047; A9270; J1644